=== PATIENT | female | born 1965 | race Caucasian/White ===

== ENCOUNTER 2017-09-29 21:05 | Emergency (ER) | payer MEDICARE, MEDICAID, SELFPAY ==
[2017-09-29 21:08] VITALS: BP 140/98; PULSE 82; RESP 19; TEMP 37.6; O2SAT 98; BMI 28.6
[2017-09-29] MEDS: oxyCODONE 5 MG Tablet 10 MG PO (22:17)
--- NOTE | 2017-09-29 22:20 | ED.VISSUMM ---
- ER Visit Summary Date of Service: 09/29/17 Chief Complaint: Dental pain History of Present Illness: The patient is a 52 F since to the emergency department status post dental extraction today with increasing pain. Patient had this done in [place]. She states that she was just placed on ibuprofen. Since then, she has had gradually increasing pain. She has a dry socket before and states this feels different. She denies any trauma. She denies any active bleeding. Physical Examination: Oral mucosa is intact. There is no Jl angina. There is no trismus or stridor. Patient is status post extraction of tooth 14. There is no active bleeding. There is no dry socket. Test Results: [] Emergency Department Course and Treatment: The patient has postextraction pain. There is no dry socket. There is no active bleeding. The gum is minimally erythematous without evidence of infection. The patient was given oral analgesics and will be discharged with 4 analgesics for pain control at home. She will follow-up with her dentist for any more pain control. Treatment Plan: [] Disposition: Discharge Impression: Post extraction dental pain This note was generated with [employer] dictation software. It may contain incorrect words, spelling, and punctuation that were not noted in review of the chart prior to signing ED Disposition - Plan for ED Patient: Chief Complaint: Dental Instructions: ED Tooth Pain Referrals: [facility],Out of [Primary Care Provider] -
[2017-09-29] MEDS: HYDROcodone Bitartrate/Apap 5/325 Tablet PO (22:32)
[2017-09-29] MEDS: Ondansetron ODT 4 MG Tablet PO (22:33)
[2017-09-29 22:34] VITALS: BP 134/92; PULSE 61; O2SAT 100
== END 2017-09-29 22:34 | disposition home or self-care (01) ==
PROVIDERS: Emergency Provider Emergency Medicine
DX: K08.89 Other specified disorders of teeth and supporting structures (principal); Z98.818 Other dental procedure status; I10 Essential (primary) hypertension; Z72.0 Tobacco use
CPT/HCPCS: 99283

== ENCOUNTER 2017-10-01 13:21 | Emergency (ER) | payer MEDICARE, MEDICAID, SELFPAY ==
[2017-10-01 13:22] VITALS: BP 134/95; PULSE 72; RESP 16; TEMP 36.6; O2SAT 99; BMI 28.5
--- NOTE | 2017-10-01 13:38 | ED.VISSUMM ---
- ER Visit Summary Date of Service: 10/01/17 Chief Complaint: Pain status post dental extraction History of Present Illness: The patient is a 52 F who presents with pain status post extraction of left upper molar this past Wednesday. She was seen that evening and given for [place] tablets. She now presents because of increased pain and facial swelling of the left maxillary area. She denies fever, chills night sweats. She denies being on any immunosuppressive meds. She does have history of lupus. She denies any ocular, visual or auditory symptoms. She denies difficulty opening or closing her mouth. She denies any cardiac respiratory symptoms. Physical Examination: Blood pressure slightly elevated 134/95. There is swelling over the left maxilla. Nares patent without discharge. Pupils equal round reactive. Extra muscles are intact. There is no pain with movement or limited range of motion. There is no trismus. Extraction site is noted with debris. There is some irritation and swelling of the gum with no fluctuance. Trachea is midline. There is no stridor. Heart is regular without murmur, gallop or rub. S1 and S2 are normal. Lungs are clear to auscultation with good movement of air bilaterally. There is no evidence of facial cellulitis. Test Results: None is indicated Emergency Department Course and Treatment: She received a dose of clindamycin 300 mg p.o., Naprosyn 500 mg p.o. and one [place] tablet. She was instructed to follow-up with a dentist. informed me they were at the dentist office. The dentist office is closed and there is been no response to their calls. Treatment Plan: Oral analgesics and antibiotics Disposition: Discharged home with appropriate home-going instruction Impression: Pain status post extraction left upper molar with post extraction infection This note was generated with [employer] dictation software. It may contain incorrect words, spelling, and punctuation that were not noted in review of the chart prior to signing ED Disposition - Plan for ED Patient: Disposition: Home or Assisted Living Chief Complaint: Dental Instructions: ED Abscess Dental, ED Socket Dry Prescriptions: Naproxen [Naprosyn] 500 mg PO BID #10 tab Clindamycin HCl 300 mg PO 4X/DAY #30 cap Referrals: Dentist,Your [STAFF PHYSICIAN] - [facility] Doctor,Out of [Primary Care Provider] - 1-2 Days if not improving
[2017-10-01] MEDS: Clindamycin HCl 150 MG Capsule 300 MG PO (13:51)
[2017-10-01] MEDS: HYDROcodone Bitartrate/Apap 5/325 Tablet PO ×2 (13:52→14:28)
[2017-10-01] MEDS: Naproxen 250 MG Tablet 500 MG PO (13:52)
[2017-10-01 14:30] VITALS: BP 143/108; PULSE 74; RESP 18
== END 2017-10-01 14:34 | disposition home or self-care (01) ==
PROVIDERS: Emergency Provider Emergency Medicine
DX: K08.89 Other specified disorders of teeth and supporting structures (principal); M27.3 Alveolitis of jaws; I10 Essential (primary) hypertension; M32.9 Systemic lupus erythematosus, unspecified; Z72.0 Tobacco use; Z98.818 Other dental procedure status
CPT/HCPCS: 99283

== ENCOUNTER 2017-10-03 18:34 | Emergency (ER) | payer MEDICARE, MEDICAID, SELFPAY ==
[2017-10-03 18:35] VITALS: BP 146/92; PULSE 87; RESP 18; TEMP 37.4; O2SAT 97; BMI 27.8
--- NOTE | 2017-10-03 19:07 | ED.VISSUMM ---
- ER Visit Summary Date of Service: 10/03/17 Chief Complaint: Dental pain History of Present Illness: The patient is a [address] Geronimo. She had her left maxillary first molar pulled [address] Burnham. She reports that she has had pain since that time. She describes a throbbing pain is 10 out of 10 severity. Is worsened by leaning her head forward or swallowing. She taken naproxen and ibuprofen without relief. She has been on clindamycin for the past 2 days. Physical Examination: Vitals: Stable. Afebrile. Mouth: No trismus. No edema of the floor of the mouth. Left maxillary second molar is absent. The extraction site has a clot present. There is no dry socket. There is no surrounding abscess or facial swelling. General: A&O x 3. NAD. Cardiovascular exam: Regular rate and rhythm, no murmur, rub or gallop. Respiratory exam: Clear to auscultation bilaterally. No wheezes or stridor. Abdominal exam: Soft, nontender, nondistended, normal bowel sounds. No peritoneal signs. Extremity: No clubbing, cyanosis, or edema. Emergency Department Course and Treatment: An OARRS report was obtained which shows that she has had no prescriptions for opiates in the past year. Patient is treated with oxycodone here. Treatment Plan: Patient will be discharged oxycodone instructed to follow-up with her dentist as soon as possible. Disposition: To home in improved and stable condition. Impression: 1. Post extraction pain. This note was generated with [employer] dictation software. It may contain incorrect words, spelling, and punctuation that were not noted in review of the chart prior to signing ED Disposition - Plan for ED Patient: Disposition: Home or Assisted Living Chief Complaint: Dental Instructions: ED Tooth Pain Prescriptions: Oxycodone HCl/Acetaminophen [Percocet 5/325] 1 tablet PO Q6H PRN PRN 5 Days #20 tablet PRN Reason: Pain Referrals: Dentist,Your [STAFF PHYSICIAN] - As soon as possible
[2017-10-03] MEDS: oxyCODONE 5 MG Tablet PO (19:22)
[2017-10-03] MEDS: oxyCODONE 5 MG Tablet 10 MG PO (19:22)
[2017-10-03 19:24] VITALS: PULSE 86; RESP 14; O2SAT 98
== END 2017-10-03 19:25 | disposition home or self-care (01) ==
PROVIDERS: Emergency Provider Emergency Medicine
DX: K08.89 Other specified disorders of teeth and supporting structures (principal); G89.18 Other acute postprocedural pain; I10 Essential (primary) hypertension; F17.210 Nicotine dependence, cigarettes, uncomplicated; M79.7 Fibromyalgia; M35.00 Sjogren syndrome, unspecified; M32.9 Systemic lupus erythematosus, unspecified; F41.9 Anxiety disorder, unspecified
CPT/HCPCS: 99283

== ENCOUNTER 2018-01-26 16:43 | Emergency (ER) | payer MEDICARE, MEDICAID, SELFPAY ==
[2018-01-26 16:43] VITALS: BP 168/99; PULSE 75; RESP 16; TEMP 36.8; O2SAT 98; BMI 30.3
--- NOTE | 2018-01-26 17:10 | ED.VISSUMM ---
- ER Visit Summary Date of Service: 01/26/18 Chief Complaint: Anxiety History of Present Illness: The patient is a [address] Bruce. She reports that she has been on Xanax for 30 years. States that her primary physician required a urine drug screen and that she tested positive for cocaine. She is adamant that she did not use cocaine. However, because of this her primary has refused to prescribe her Xanax. She states that she ran out of her Xanax approximately 1 week ago. She reports that she does feel anxious and at times is short of breath with this. Patient complains of generalized anxiety and reports that she has not been able to take SSRIs or other antidepressants to help with this. Review of systems: General: No fever, chills, cold sweats. Cardiovascular: No chest pain, palpitations. Respiratory: No cough, shortness of breath, dyspnea on exertion. Gastrointestinal: No abdominal pain, vomiting, diarrhea, melena, or hematochezia. Genitourinary: No dysuria, frequency, hematuria. Skin: No rash. Neuro: No headache, numbness, weakness. Physical Examination: Vitals: Stable. Afebrile. General: Well-nourished and well-developed. Head: Normocephalic atraumatic. Neck: Supple, no lymphadenopathy. No JVD. Nontender. Cardiovascular: Regular rate and rhythm. No murmurs. Respiratory: No respiratory distress. Clear to auscultation bilaterally. Abdominal: Soft, nontender, nondistended, normal bowel sounds. No guarding, rebound, or peritoneal signs. Back: Nontender. Extremities: Nontender, no edema. Skin: Normal color, no rash. Neurologic: Alert and oriented ?3. Cranial nerves II through XII are intact. Normal strength and sensation. Psych: Normal affect. Emergency Department Course and Treatment: An OARRS report was obtained which shows she has been on Xanax over the course the past year. Her last prescription was November 04 and this was to last 1 month. I did attempt to find what would cause a false positive for cocaine and have not found anything other than coca leaves. Treatment Plan: I discussed the patient the possibility of a false positive drug screen. I have suggested that she follow-up with her primary care physician and speak with her about this and about further prescriptions for benzodiazepines. However, she does not appear on her OARS report to have had an issue with benzodiazepines in the past and will be given a prescription for 20 Ativan. Return to the emergency department for any worsening symptoms. Disposition: To home in improved and stable condition. Impression: 1. Anxiety. This note was generated with [employer] dictation software. It may contain incorrect words, spelling, and punctuation that were not noted in review of the chart prior to signing ED Disposition - Plan for ED Patient: Disposition: Home or Assisted Living Chief Complaint: Anxiety Instructions: ED Stress React Prescriptions: Lorazepam [Ativan] 1 mg PO TID PRN #20 tablet PRN Reason: Anxiety Referrals: Doctor,Your [STAFF PHYSICIAN] - As soon as possible
[2018-01-26 17:30] VITALS: PULSE 78; RESP 17; O2SAT 98
[2018-01-26] MEDS: LORazepam 1 MG Tablet PO (17:32)
== END 2018-01-26 17:33 | disposition home or self-care (01) ==
LOC: ED 17:16
PROVIDERS: Emergency Provider Emergency Medicine
DX: F41.9 Anxiety disorder, unspecified (principal); I10 Essential (primary) hypertension; K21.9 Gastro-esophageal reflux disease without esophagitis; M79.7 Fibromyalgia; M35.00 Sjogren syndrome, unspecified; F17.200 Nicotine dependence, unspecified, uncomplicated
CPT/HCPCS: 99283

== ENCOUNTER 2018-03-06 19:56 | Emergency (ER) | payer MEDICARE, MEDICAID, SELFPAY ==
[2018-03-06 19:58] VITALS: BP 139/89; PULSE 83; RESP 18; TEMP 36.6; O2SAT 98; BMI 29.2
[2018-03-06] MEDS: Metoclopramide 10 MG/2 ML Vial IV (21:42)
[2018-03-06] MEDS: 0.9% Normal Saline 1,000 ML 999 ML IV (21:42)
[2018-03-06] MEDS: Ketorolac 30 MG/ML Syringe IV (21:44)
--- NOTE | 2018-03-06 22:17 | ED.VISSUMM ---
- ER Visit Summary Date of Service: 03/06/18 Chief Complaint: Headache History of Present Illness: The patient is a 53 F who presents with a headache. It began about 3 days ago. It was gradual in onset. She does have a history of migraines and similar prior headaches. She notes that the characteristics and locations of the pain are similar to prior. She also had a prodrome of flashing lights and visual changes which she also states she usually got before her migraines. This is not the worst migraine she has had. She does note a lot of stress and anxiety which she believes may be contributing. Physical Examination: Afebrile vitals are normal Patient appears very anxious Heart regular rate and rhythm Lungs clear Abdomen soft Alert and oriented with no focal or lateralizing neurological deficits Neck is supple with no meningismus Test Results: Not indicated Emergency Department Course and Treatment: Patient was treated with IV fluids and Reglan and Toradol. When I went to reevaluate the patient she had pulled out her IV and is asking to leave. She does note that her nausea is improved and states I am not sure about the headache. However she states that at this point she would just prefer to be discharged home. She does understand return for new or worsening symptoms. She was discharged. Treatment Plan: [] Disposition: Discharge Impression: Headache This note was generated with [employer] dictation software. It may contain incorrect words, spelling, and punctuation that were not noted in review of the chart prior to signing ED Disposition - Plan for ED Patient: Chief Complaint: Headache Referrals: [facility] Doctor,Out of [Primary Care Provider] -
--- NOTE | 2018-03-06 22:19 | ED.DEP ---
ED Disposition - Plan for ED Patient: Chief Complaint: Headache Instructions: ED Cephalgia Unspecified Referrals: [facility],Out of [Primary Care Provider] -
== END 2018-03-06 22:48 | disposition home or self-care (01) ==
PROVIDERS: Emergency Provider Emergency Medicine
DX: R51 Headache (principal); R11.0 Nausea; I10 Essential (primary) hypertension; M79.7 Fibromyalgia; Z72.0 Tobacco use
CPT/HCPCS: 96361; 96374; 96375; 99285; A4216

== ENCOUNTER 2019-08-13 11:15 | Emergency (ER) | payer OTHER, SELFPAY ==
[2019-08-13 11:17] VITALS: BP 178/112; PULSE 72; RESP 19; TEMP 36.7; O2SAT 97; BMI 32.3
--- NOTE | 2019-08-13 11:30 | ED.VIS.GEN ---
History of Present Illness Informant: Patient, Significant Other Onset: Days - 3 days Context: Sudden Onset Timing: Intermittent Quality: Room spinning Location: Head Current Severity: Severe Maximum Severity: Severe Worsened by: Movements Relieved by: Rest Associated Symptoms: Nausea and vomiting Narrative: 54-year-old female history of hypertension lupus and fibromyalgia presents to the emergency department with 3 days of dizziness. She describes it as feeling motion sickness. She has a room spinning sensation. It is worse when she gets up from a laying or seated position and standing. Better with rest especially being supine. She has associated nausea and vomiting with these episodes. She has not had a headache or tinnitus. No neck pain. No blurry or double vision. No loss of vision. No numbness tingling or weakness. No chest pain or shortness of breath. No fevers. No head trauma. She is not anticoagulated. Denies history of vertigo. Only current daily medication is metoprolol Prior similar symptoms: No Recent Illness/Hospitalization: No <Crow Palafox - Last Filed: 08/13/19 13:21> <Eddie Alanis - Last Filed: 08/13/19 13:32> Chief Complaint: Dizziness Past Medical History Prior records reviewed: Yes Past Medical History: - - Lupus, fibromyalgia, hypertension Surgical History: - - Hysterectomy, back surgery Lives: With Family Smoking Status: Current every day smoker Alcohol: Occasional Drugs: None <Crow Palafox - Last Filed: 08/13/19 13:21> <Eddie Alanis - Last Filed: 08/13/19 13:32> - Allergies and Home Meds Allergies/Adverse Reactions: Allergies hydrocodone bitartrate [From Vicodin] Allergy (Verified 08/13/19 11:17) Rash nortriptyline HCl [From Pamelor] Allergy (Verified 08/13/19 11:17) Rash gabapentin Adverse Reaction (Verified 08/13/19 11:17) Other prednisone Adverse Reaction (Verified 08/13/19 11:17) Other pregabalin [From Lyrica] Adverse Reaction (Verified 08/13/19 11:17) Other zolpidem tartrate [From Ambien] Adverse Reaction (Verified 08/13/19 11:17) Other Primary Care Physician: [facility] Doctor,Out of [NON-STAFF] - Review of Systems All systems negative except as indicated General: Denies: Chills, Fever, Malaise, Subjective Eyes: Denies: Visual changes - bilaterally, Blurred Vision - bilaterally, Diplopia ENT: Denies: Bilateral ear pain, Left ear pain, Right ear pain, Rhinorrhea, Sore throat Cardiovascular: Denies: Chest pain, Palpitations, Heart racing Respiratory: Denies: Dyspnea, Cough, Sputum, Dyspnea on exertion, Orthopnea, Paroxysmal nocturnal dyspnea Gastrointestinal: Reports: Nausea, Vomiting. Denies: Abdominal pain, Diarrhea, Constipation, Melena, Hematochezia Genitourinary: Denies: Dysuria, Hematuria, Frequency Musculoskeletal: Denies: Myalgias, Arthralgias, Neck pain, Back pain, Extremity Pain Skin: Denies: Rash, Abscess, Abrasions, Wounds Neurological: Reports: - - Dizziness. Denies: Headache, Weakness, Parasthesia, Numbness Psych: Denies: Depression, Anxiety Endocrine: Denies: Polyuria, Polydipsia <Crow Palafox - Last Filed: 08/13/19 13:21> Physical Exam Vital Signs/Narrative: Vital Signs Temp Pulse Resp BP Pulse Ox 08/13/19 11:17 98.1 F 72 19 H 178/112 H 97 Inital Vital Signs reviewed: Yes General: Well nourished, Well developed, No Acute Distress Head: Normocephalic, Atraumatic Eyes: Perrl, EOMI ENT: Moist mucous membranes, No rhinorrhea, TM's clear Neck: Supple, Nontender, No lymphadenopathy, No JVD Cardiovascular: Regular rate, Regular rhythm, No murmurs Respiratory: No distress, CTA bilaterally, Chest nontender Abdomen: Soft, Nontender, Nondistended, Normal bowel sounds, No masses Back: Nontender, Normal Inspection Extremities: Nontender, No edema Skin: Normal color, No rash Neurological: Alert, Oriented x3, Cranial nerves II-XII grossly intact, Normal Strength, Normal Sensation Psychological: Normal affect, Normal Mood <Crow Palafox - Last Filed: 08/13/19 13:21> Vital Signs/Narrative: Vital Signs Temp Pulse Resp BP Pulse Ox 08/13/19 13:16 71 18 188/106 H 98 08/13/19 11:17 98.1 F 72 19 H 178/112 H 97 <AlanisEddie - Last Filed: 08/13/19 13:32> Diagnostic/Tx/Re-eval - Medical Decision Making Patient was given IV fluids and IV ativan Laboratory work-up showed a white blood cell count of 14. Sodium was 126. The rest of her labs are unremarkable. On repeat evaluation Cecilia maneuver was performed by Dr. Alanis. Noted improvement of symptoms. Patient ambulated normally without difficulty. We will discharge the patient home with a few Valium. She will follow-up with her primary care. At this time we do feel this is benign paroxysmal positional vertigo. Repeat neurological exam was unremarkable. Patient was agreeable with plan of care. She was advised to return for worsening symptoms. <Crow Palafox - Last Filed: 08/13/19 13:21> - Medical Decision Making Patient presents with motion sickness with movement of her head. She denies double vision, blurred vision loss of vision. She does report nausea. She denies paresthesia, anesthesia motors. Denies trouble with speech or swallowing. She denies cardiac respiratory symptoms. There is no history of trauma. Vital signs noted blood pressure is elevated. HEENT exam is unremarkable. Trachea midline. No carotid bruit. Heart is regular. There is no murmur, gallop or rub. Neuro exam is nonfocal. [place]-Hallpike maneuver was performed and patient reports symptoms worse with head to the left. There was slight nystagmus with her head to the right, however. Cceilia maneuver was performed. Patient had transient nystagmus when head was to the right. After procedure was completed patient was reevaluated and ambulated with resolution of her symptoms. Therefore she was discharged home with appropriate home-going instructions for benign paroxysmal positional vertigo. <Eddie Alanis - Last Filed: 08/13/19 13:32> ED Disposition <Crow Palafox - Last Filed: 08/13/19 13:21> <Eddie Alanis - Last Filed: 08/13/19 13:32> - Plan for ED Patient: Disposition: Home or Assisted Living Diagnosis: BPPV (benign paroxysmal positional vertigo) Instructions: Benign Positional Vertigo Prescriptions: proMETHazine tablet [Phenergan tablet] 25 mg PO Q6H PRN PRN #15 tab PRN Reason: nausea Prescription Printed Diazepam [Valium] 5 mg PO TID PRN #12 tab PRN Reason: Dizziness Prescription Printed Referrals: [facility] Doctor,Out of [NON-STAFF] -
[2019-08-13 12:04] LABS: Absolute Lymphocyte Count 2.49 X10^3/uL (0.83-4.51); Absolute Neutrophil Count 11.4 X10^3/uL (2.0-7.7); Basophil# 0.05 X10^3/uL; Basophil% 0.3 % (0-1); Eosinophil# 0.06 X10^3/uL; Eosinophils% 0.4 % (0-5); Hematocrit 43.2 % (37-47); Hemoglobin 15.2 g/dL (12.0-15.0); Lymphocyte # 2.49 X10^3/ul (4.0); Lymphocyte % 16.4 % (19-41); Mean Corp Hgb Conc 35.2 g/dL (32-36); Mean Corpuscular Hgb 30.8 pg (27.0-32.0); Mean Corpuscular Volume 87.6 fL (81-99); Mean Platelet Vol. 10.5 fl (6.2-12.0); Monocyte# 1.19 X10^3/uL; Monocyte% 7.8 % (0-10); NRBC Flagged by Analyzer 0 % (0-5); Neutrophil # 11.35 X10^3/uL (2.7-7.7); Neutrophil % 74.6 % (47-70); Platelet Count 338 K/mm3 (150-450); RBC Distribution Width CV 12.3 % (11.6-14.6); RBC Distribution Width SD 39.8 fl (35.1-43.9); Red Blood Count 4.93 M/mm3 (4.2-5.4); White Blood Count 15.2 K/mm3 (4.4-11.0)
[2019-08-13 12:50] LABS: Anion Gap 9 (5-15); BUN 9 mg/dL (7-18); BUN/Creat Ratio 11.7 RATIO (10-20); Chloride 93 mmol/L (98-107); Creatinine, Serum 0.77 mg/dL (0.55-1.02); EST Glomerular Filtration Rate 83 mL/min (>60); Est Glom Filt Rate - Afr Amer 101 mL/min (>60); Estimated Creatinine Clearance 65.29 ml/min; Glucose 110 mg/dL (74-106); Potassium 3.5 mmol/L (3.5-5.1); Sodium Level 126 mmol/L (136-145)
[2019-08-13] MEDS: 0.9% Normal Saline 1,000 ML 999 ML IV (12:57)
[2019-08-13] MEDS: LORazepam 2 MG/ML Syringe 1 MG IV (12:57)
[2019-08-13 13:16] VITALS: BP 188/106; PULSE 71; RESP 18; O2SAT 98
== END 2019-08-13 13:48 | disposition home or self-care (01) ==
PROVIDERS: Emergency Provider Physician Assistant Medical
DX: H81.10 Benign paroxysmal vertigo, unspecified ear (principal); I10 Essential (primary) hypertension; F17.200 Nicotine dependence, unspecified, uncomplicated; M32.9 Systemic lupus erythematosus, unspecified; Z88.5 Allergy status to narcotic agent; Z88.8 Allergy status to other drugs, medicaments and biological substances
CPT/HCPCS: 80048; 85025; 96361; 96374; 99285; J7030; A4216

== ENCOUNTER 2019-08-31 16:01 | Emergency (ER) | payer OTHER, SELFPAY ==
[2019-08-31 16:03] VITALS: BP 199/112; PULSE 80; RESP 20; TEMP 37; O2SAT 95; BMI 30.6
--- NOTE | 2019-08-31 16:21 | ED.VISSUMM ---
- ER Visit Summary Date of Service: 08/31/19 Chief Complaint: Back pain History of Present Illness: The patient is a 54 F with back pain. She has chronic back pain. This episode started about 3 weeks ago. She is taking [id number] remedies with no relief. Nothing seemed to bring on. Nothing seems to make it better. No associated symptoms. She was previously on pain medicine, but she says her PCPs office closed. She is looking for new PCP and pain doctor. Physical Examination: Afebrile and vital signs unremarkable. Back is diffusely tender. Inspection is normal. Straight leg raise negative. Good strength and sensation. Steady gait. Test Results: None indicated Emergency Department Course and Treatment: Patient received a pain shot and a shot of steroids as this has helped in the past. She will be referred to primary care and pain management for follow-up. She was advised that we cannot treat her chronic pain from the ED. Treatment Plan: As above Disposition: Discharge Impression: Chronic back pain This note was generated with [employer] dictation software. It may contain incorrect words, spelling, and punctuation that were not noted in review of the chart prior to signing ED Disposition - Plan for ED Patient: Referrals: Care Physician,No Primary [Primary Care Provider] -
--- NOTE | 2019-08-31 16:23 | ED.DEP ---
ED Disposition - Plan for ED Patient: Instructions: ED Chronic Pain Prescriptions: Oxycodone HCl/Acetaminophen [Percocet 5/325] 1 tab PO Q6H PRN PRN 2 Days #8 tab PRN Reason: Pain Prescription Printed Referrals: Esmer Riley MD [STAFF PHYSICIAN] - Sacha Evans MD [STAFF PHYSICIAN] -
[2019-08-31] MEDS: Triamcinolone Acetonide 40 MG/ML Vial IM (16:29)
[2019-08-31] MEDS: morphine 10 MG/ML Syringe 4 MG SC (16:36)
[2019-08-31 16:59] VITALS: BP 154/102; PULSE 68; RESP 16; O2SAT 98
== END 2019-08-31 17:00 | disposition home or self-care (01) ==
PROVIDERS: Emergency Provider Emergency Medicine
DX: M54.9 Dorsalgia, unspecified (principal); G89.29 Other chronic pain
CPT/HCPCS: 96372; 99283

== ENCOUNTER 2020-12-13 15:07 | Emergency (ER) | payer MEDICARE, SELFPAY ==
[2020-12-13 15:08] VITALS: BP 175/11; PULSE 89; RESP 16; TEMP 35.5; O2SAT 95; BMI 32.5
[2020-12-13] MEDS: Fluorescein 1 MG STRIP 1 STRIP LEFT EYE (16:15)
[2020-12-13 16:59] VITALS: PULSE 92; RESP 15; O2SAT 97
--- NOTE | 2020-12-13 17:03 | EX.ED.DYSGE1 ---
HPI History of Present Illness Chief Complaint: Rash Informant: patient Narrative Narrative: Presents with rash to the left forehead and scalp painful. States neuro tingling 3 to 4 days ago yesterday noticed small rash on her face. Has increased since yesterday. No history of shingles however has had chickenpox in the past. Denies any changes in vision the left eye. However wears bifocals last eye exam 4 years ago. States right eye worsening left eye at baseline. She states her left eye is 20/40 at its best. Denies fever. History of lupus however does not take steroids or immunosuppressants chronically. Prior similar symptoms: No PFSH PFSH Medical History Agoraphobia Fibromyalgia Fusion of lumbar spine Hypertension Lupus Smoker Home Medications metoprolol tartrate 50 mg PO BID 09/30/15 [History Last Taken 08/31/19] erythromycin 1 applic LEFT EYE BID #3.5 g 12/13/20 [Rx Last Taken Unknown] oxycodone-acetaminophen [Percocet] 1 tab PO Q6H PRN 3 Days #12 tab 12/13/20 [Rx Last Taken Unknown] valacyclovir [Valtrex] 1,000 mg PO TID #42 tab 12/13/20 [Rx Last Taken Unknown] Allergy/AdvReac Type Severity Reaction Status Date / Time hydrocodone bitartrate Allergy Rash Verified 12/13/20 15:08 [From Vicodin] nortriptyline HCl Allergy Rash Verified 12/13/20 15:08 [From Pamelor] gabapentin AdvReac Other Verified 12/13/20 15:08 prednisone AdvReac Other Verified 12/13/20 15:08 pregabalin [From Lyrica] AdvReac Other Verified 12/13/20 15:08 zolpidem tartrate AdvReac Other Verified 12/13/20 15:08 [From Ambien] Social History Smoking Status: Current every day smoker tobacco type: cigarettes ROS ROS ED Constitutional Constitutional ED: Denies chills, fever(s) or sweats Eyes Eyes: Denies change in vision ENT ENT ED: Denies dysphagia or sore throat Cardiovascular Cardiovascular: Denies chest pain, leg edema, palpitations or racing heartbeat Respiratory/Chest Respiratory/Chest: Denies cough, dyspnea or dyspnea on exertion Gastrointestinal Gastrointestinal: Denies abdominal pain, diarrhea, nausea or vomiting Genitourinary Genitourinary ED: Denies dysuria, hematuria or urinary frequency Musculoskeletal Musculoskeletal: Denies back pain, extremity pain or neck pain Integumentary Reports rash; Denies wounds Neurologic Neurologic: Denies headache(s), paresthesias or weakness EXAM Physical Exam Const Vital Signs: 12/13/20 15:08 12/13/20 16:59 Temperature 96 F L Temperature Source Temporal Pulse Rate 89 92 Respiratory Rate 16 15 Blood Pressure 175/11 H Blood Pressure Mean 65 Pulse Ox 95 97 Oxygen Delivery Method Room Air Room Air Positive well nourished and well developed General Appearance ED: well developed and NAD HEENT Reports moist mucous membranes HEENT Narrative: Vesicular rash and erythema V1 distribution on the left with positive [place] sign. normocephalic and atraumatic Eyes conjunctivae normal Eyes Narrative: Swelling to the upper eyelid. There is vesicular lesion at the 4:00 and 9 o'clock position. No dendritic lesion on fluorescein stain. Visual acuity OD: 20/200, 20/50 OS. Uncorrected. General Eye ED: Yes normal appearance of both eyes Neck no lymphadenopathy and supple General: Negative for tenderness Chest Wall Chest: Negative for tenderness Resp normal respiratory effort and normal air movement Effort and Inspection: symmetric chest movement; Negative for respiratory distress Cardio regular rate, regular rhythm and no murmurs Peripheral Pulses: pulses 2+ throughout GI normal to inspection, nondistended, normoactive bowel sounds and non-tender Palpation: Negative for guarding or rebound tenderness present Back/Spine no CVA tenderness and no thoracic nor lumbar tenderness Extremity normal to inspection General Extremety ED: Negative for edema or tenderness General Extremity: Negative for edema Neuro oriented x3 and no sensory deficits noted Sensorium / Orientation: awake and alert Skin no rashes or lesions noted and no wounds MDM MDM MDM Narrative Medical decision making narrative: Patient presenting with herpes ophthalmicus affecting left eye. There is vesicles of the sclera with conjunctivitis. Visual acuity 20/50 uncorrected in the left eye. Not far from her baseline from her history. I did speak with on-call exchange administrator, recommended starting 1 g Valtrex 3 times a day for 2 weeks, erythromycin twice daily to the left eye. Took down patient's information he reports he will discuss with his covering partner who is on-call this weekend and patient will be contacted to be seen in the office either rodrigo or geriorrow for examination prior to steroids being started. This was relayed to the patient. She is order her medications along with Percocet for pain control. Discussed to expect a call from ophthalmology clinic. All questions were answered. Discharge Plan Triage Chief Complaint: Rash ED Provider: Carlos Mendoza Dx/Rx/DC Orders Clinical Impression: Ophthalmic herpes zoster infection Instructions: Shingles (Herpes Zoster), Understanding Herpes Eye Disease Prescriptions: New valacyclovir [Valtrex] 1 gram tablet 1,000 mg PO TID Qty: 42 RF: 0 erythromycin 5 mg/gram (0.5 %) ointment 1 applic LEFT EYE BID Qty: 3.5 RF: 0 oxycodone-acetaminophen [Percocet] 5-325 mg tablet 1 tab PO Q6H PRN (Reason: pain) 3 Days Qty: 12 RF: 0 No Action metoprolol tartrate 50 MG tablet 50 mg PO BID RF: 0 Primary Care Provider: Care Physician,No Primary Referrals: Bang Vasquez MD [STAFF PHYSICIAN] - (expect call from eye center for follow up) Care Physician,No Primary [Primary Care Provider] - Activity Restrictions/Additional Instructions: Your prescriptions were sent to your pharmacy to take. Expect a call from the eye center to get seen for testing and further treatment. Disposition Disposition: Home, Self Care
[2020-12-13] MEDS: oxyCODONE 5 MG Tablet PO (17:11)
[2020-12-13] MEDS: Erythromycin Base 1 OPTH.TUBE 1 APPLIC LEFT EYE (17:11)
[2020-12-13 17:18] VITALS: BP 165/74; PULSE 97; RESP 15; O2SAT 98
== END 2020-12-13 17:19 | disposition home or self-care (01) ==
PROVIDERS: Emergency Provider Emergency Medicine
DX: B02.30 Zoster ocular disease, unspecified (principal); I10 Essential (primary) hypertension; M32.9 Systemic lupus erythematosus, unspecified; M79.7 Fibromyalgia; F17.210 Nicotine dependence, cigarettes, uncomplicated; Z79.52 Long term (current) use of systemic steroids; Z79.899 Other long term (current) drug therapy
CPT/HCPCS: 99283

== ENCOUNTER 2021-01-21 15:04 | Emergency (ER) | payer MEDICARE, SELFPAY ==
[2021-01-21 15:05] VITALS: BP 121/92; PULSE 81; RESP 16; TEMP 36.4; O2SAT 98; BMI 31.1
== END 2021-01-21 15:41 ==
LOC: ED 15:40
DX: R21 Rash and other nonspecific skin eruption (principal)

== ENCOUNTER 2022-09-06 19:15 | Emergency (ER) | payer MEDICARE, MEDICAID, SELFPAY ==
[2022-09-06 19:16] VITALS: BP 204/143; PULSE 108; RESP 15; TEMP 37.2; O2SAT 96
--- NOTE | 2022-09-06 19:41 | EDS_ITS ---
HPI History of Present Illness Chief Complaint: Substance Abuse Informant: patient [facility] Medical History Agoraphobia Fibromyalgia Fusion of lumbar spine Hypertension Lupus Smoker Home Medications metoprolol tartrate 50 mg tablet 50 mg PO BID 09/30/15 [History Last Taken 08/31/19] erythromycin 5 mg/gram (0.5 %) eye ointment 1 applic LEFT EYE BID #3.5 grams 12/13/20 [Rx Last Taken Unknown] oxycodone-acetaminophen 5 mg-325 mg tablet (Percocet) 1 tab PO Q6H PRN pain 3 days #12 tabs 12/13/20 [Rx Last Taken Unknown] valacyclovir 1 gram tablet (Valtrex) 1,000 mg PO TID #42 tabs 12/13/20 [Rx Last Taken Unknown] Allergy/AdvReac Type Severity Reaction Status Date / Time hydrocodone bitartrate Allergy Rash Verified 09/06/22 19:20 [From Vicodin] nortriptyline HCl Allergy Rash Verified 09/06/22 19:20 [From Pamelor] gabapentin AdvReac Other Verified 09/06/22 19:20 prednisone AdvReac Other Verified 09/06/22 19:20 pregabalin [From Lyrica] AdvReac Other Verified 09/06/22 19:20 zolpidem tartrate AdvReac Other Verified 09/06/22 19:20 [From Ambien] Social History Smoking Status: Current every day smoker tobacco type: cigarettes ROS ROS ED Cardiovascular Cardiovascular: Reports racing heartbeat Psychiatric Psychiatric: Reports anxiety EXAM Physical Exam Const Vital Signs: 09/06/22 19:16 09/06/22 19:53 09/06/22 19:55 Temperature 99.0 F Temperature Source Temporal Pulse Rate 108 H 102 H Respiratory Rate 15 16 Respiratory Effort Normal Non-Labored Blood Pressure 204/143 H 211/109 H Blood Pressure Mean 163 143 Pulse Ox 96 96 Oxygen Delivery Method Room Air HEENT Reports moist mucous membranes Eyes PERRL and EOMs intact bilaterally Neck supple Resp normal respiratory effort Auscultation: diminished lung sounds bilateral (posterior bases) Cardio regular rate, regular rhythm, S1 normal heart sound, S2 normal heart sound and no murmurs Rate: tachycardic GI soft to palpation, non-tender, non-distended and no masses Neuro oriented x3 and CN's II-XII intact bilaterally Neuro Narrative: 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 Gait (Neuro): normal gait Psych mental status grossly normal Mood & Affect: anxious Discharge Plan Triage Chief Complaint: Substance Abuse ED Provider: Alex Lewis Dx/Rx/DC Orders Prescriptions: No Action metoprolol tartrate 50 MG tablet 50 mg PO BID valacyclovir [Valtrex] 1 gram tablet 1,000 mg PO TID Qty: 42 0RF erythromycin 5 mg/gram (0.5 %) ointment 1 applic LEFT EYE BID Qty: 3.5 0RF oxycodone-acetaminophen [Percocet] 5-325 mg tablet 1 tab PO Q6H PRN (Reason: pain) 3 Days Qty: 12 0RF Primary Care Provider: Care Physician,No Primary Referrals: Care Physician,No Primary [Primary Care Provider] -
[2022-09-06 19:55] VITALS: BP 211/109; PULSE 102; RESP 16; O2SAT 96
--- NOTE | 2022-09-06 20:06 | EDS_ITS ---
HPI History of Present Illness Chief Complaint: Substance Abuse Informant: patient Narrative Narrative: Patient presents with anxiety, nausea, diarrhea, couple episodes of vomiting but mostly when she gagged herself, and elevated blood pressure since she stopped u sing fentanyl 4 days ago. She has been snorting it. Denies any IV drug use. She has been abusing this for the last year or so to help control her pain that she associates with her fibromyalgia. She states she is not doing this for fun and when she stopped using fentanyl which she did 4 days ago, she plans on not using it again, although she does not have a plan for controlling her fibromyalgia pain. She states she is very anxious, she has a history of this, it is worse now that she is in withdrawal. She does not want to be an inpatient, she is just looking for some medications to help her through this and the anxiety and sleep because she cannot do that. PFSH PFSH Medical History Agoraphobia Fibromyalgia Fusion of lumbar spine Hypertension Lupus Smoker Home Medications metoprolol tartrate 50 mg tablet 50 mg PO BID 09/30/15 [History Last Taken 08/31/19] erythromycin 5 mg/gram (0.5 %) eye ointment 1 applic LEFT EYE BID #3.5 grams 12/13/20 [Rx Last Taken Unknown] oxycodone-acetaminophen 5 mg-325 mg tablet (Percocet) 1 tab PO Q6H PRN pain 3 days #12 tabs 12/13/20 [Rx Last Taken Unknown] valacyclovir 1 gram tablet (Valtrex) 1,000 mg PO TID #42 tabs 12/13/20 [Rx Last Taken Unknown] clonidine HCl 0.1 mg tablet 0.1 mg PO TID #10 tabs 09/06/22 [Rx Last Taken Unk nown] promethazine 25 mg tablet 25 mg PO Q6H PRN PRN Nausea #16 TABLETS 09/06/22 [Rx Last Taken Unknown] tramadol 50 mg tablet 50 mg PO Q4H PRN PRN Pain 3 days #16 tabs 09/06/22 [Rx Last Taken Unknown] Allergy/AdvReac Type Severity Reaction Status Date / Time hydrocodone bitartrate Allergy Rash Verified 09/06/22 19:20 [From Vicodin] nortriptyline HCl Allergy Rash Verified 09/06/22 19:20 [From Pamelor] gabapentin AdvReac Other Verified 09/06/22 19:20 prednisone AdvReac Other Verified 09/06/22 19:20 pregabalin [From Lyrica] AdvReac Other Verified 09/06/22 19:20 zolpidem tartrate AdvReac Other Verified 09/06/22 19:20 [From Ambien] Social History Smoking Status: Current every day smoker tobacco type: cigarettes ROS ROS ED Constitutional Constitutional ED: Denies chills or fever(s) Eyes Eyes: Denies change in vision or diplopia ENT ENT ED: Denies rhinorrhea or sore throat Cardiovascular Cardiovascular: Denies chest pain or palpitations Respiratory/Chest Respiratory/Chest: Denies cough or dyspnea Gastrointestinal Gastrointestinal: Reports diarrhea, nausea and vomiting; Denies abdominal pain Genitourinary Genitourinary ED: Denies dysuria or hematuria Musculoskeletal Musculoskeletal: Denies back pain or neck pain Integumentary Denies abscess or rash Neurologic Neurologic: Denies headache(s), paresthesias or weakness Psychiatric Psychiatric: Reports anxiety; Denies suicidal thoughts EXAM Physical Exam Const Vital Signs: 09/06/22 19:16 09/06/22 19:53 09/06/22 19:55 Temperature 99.0 F Temperature Source Temporal Pulse Rate 108 H 102 H Respiratory Rate 15 16 Respiratory Effort Normal Non-Labored Blood Pressure 204/143 H 211/109 H Blood Pressure Mean 163 143 Pulse Ox 96 96 Oxygen Delivery Method Room Air Positive well nourished and well developed General Appearance ED: well developed and NAD HEENT Reports moist mucous membranes normocephalic and atraumatic Eyes PERRL and EOMs intact bilaterally Neck full ROM and supple Resp normal respiratory effort and clear to auscultation bilaterally Cardio regular rate, regular rhythm and no murmurs Rate: tachycardic GI non-tender and non-distended Auscultation: normoactive bowel sounds Palpation: soft Back/Spine no CVA tenderness General Back: other FROM Extremity normal to inspection General Extremety ED: Negative for edema, pulses abnormal or tenderness General Extremity: Negative for edema or pulses abnormal Neuro oriented x3, CN's II-XII intact bilaterally and no sensory deficits noted Sensorium / Orientation: awake and alert Motor Exam: strength 5/5 throughout Psych thought process normal Psych Narrative: Anxious and fidgety Skin no rashes or lesions noted and no wounds MDM MDM MDM Narrative Medical decision making narrative: Patient is hypertensive, on a couple different rechecks she is in the 180s, not the 200s anymore like she was in triage. I do not think she is necessarily symptomatic from the blood pressure, I think this is a side effect of her withdrawal. I offered inpatient detox she does not want that and states she will be more comfortable at home. I offered a short course of Suboxone, she does not want that and she does not want to follow-up with anybody as an outpatient either. She prefers to have a prescription to use at home. I offered her IV fluids here because she has been having trouble keeping fluids down the last day or 2, she declines that as well. I think it would be reasonable to give her tramadol and clonidine along with some Zofran here, as well as a prescription for 2 or 3 days, she is thankful for that and will return if this does not work and she needs inpatient. She is not suicidal or having any other acute psychiatric disturbance. With regards to Benadryl she was taking this at home, she took 100 mg once yesterday and once today. She does not appear to have an anticholinergic toxidrome. Discharge Plan Triage Chief Complaint: Substance Abuse ED Provider: Alex Lewis Dx/Rx/DC Orders Clinical Impression: Opiate withdrawal, Opiate dependence, Episode of hypertension Instructions: ED Opioid Withdrawal Prescriptions: New tramadol 50 mg tablet 50 mg PO Q4H PRN PRN (Reason: Pain) 3 Days Qty: 16 0RF clonidine HCl 0.1 mg tablet 0.1 mg PO TID Qty: 10 0RF promethazine [promethazine] 25 mg tablet 25 mg PO Q6H PRN PRN (Reason: Nausea) Qty: 16 0RF No Action metoprolol tartrate 50 MG tablet 50 mg PO BID valacyclovir [Valtrex] 1 gram tablet 1,000 mg PO TID Qty: 42 0RF erythromycin 5 mg/gram (0.5 %) ointment 1 applic LEFT EYE BID Qty: 3.5 0RF oxycodone-acetaminophen [Percocet] 5-325 mg tablet 1 tab PO Q6H PRN (Reason: pain) 3 Days Qty: 12 0RF Primary Care Provider: Care Physician,No Primary Referrals: Care Physician,No Primary [Primary Care Provider] - [facility] [Non-Staff] - As Needed Disposition Disposition: Home, Self Care
[2022-09-06 20:15] VITALS: BMI 32.4
[2022-09-06] MEDS: Ondansetron ODT 4 MG Tablet 8 MG PO (20:16)
[2022-09-06] MEDS: cloNIDine HCl 0.2 MG Tablet PO (20:16)
[2022-09-06] MEDS: traMADol 50 MG Tablet 100 MG PO (20:16)
[2022-09-06] MEDS: hydrOXYzine PAM 25 MG Capsule 50 MG PO (20:54)
== END 2022-09-06 20:55 | disposition home or self-care (01) ==
PROVIDERS: Emergency Provider Emergency Medicine; Visit Provider Emergency Medicine
DX: F11.23 Opioid dependence with withdrawal (principal); I10 Essential (primary) hypertension; M79.7 Fibromyalgia; R11.2 Nausea with vomiting, unspecified; R19.7 Diarrhea, unspecified; F17.210 Nicotine dependence, cigarettes, uncomplicated; F41.9 Anxiety disorder, unspecified
CPT/HCPCS: 99283

== ENCOUNTER 2022-09-08 15:00 | Inpatient (IN) | payer MEDICARE, SELFPAY ==
[2022-09-08 15:02] VITALS: BP 162/98; PULSE 106; RESP 22; TEMP 36.8; O2SAT 98; BMI 31.1
[2022-09-08 17:03] VITALS: BP 110/72; PULSE 88; RESP 17
[2022-09-08 17:37] LABS: Bacteria 0 SEEN /hpf (None Seen); Mucous, Urine 0 SEEN /hpf (<or=2+); Red Blood Cells-Urine 0 SEEN /hpf (0-5)
[2022-09-08 17:56] LABS: Absolute Lymphocyte Count 2.16 X10^3/uL (0.83-4.51); Absolute Neutrophil Count 7.8 X10^3/uL (2.0-7.7); Basophil# 0.07 X10^3/uL; Basophil% 0.6 % (0-1); Eosinophil# 0.12 X10^3/uL; Eosinophils% 1.1 % (0-5); Hematocrit 49.1 % (37-47); Hemoglobin 16.4 g/dL (12.0-15.0); Lymphocyte # 2.16 X10^3/ul (0.83-4.51); Lymphocyte % 19.8 % (19-41); Mean Corp Hgb Conc 33.4 g/dL (32-36); Mean Corpuscular Hgb 30.1 pg (27.0-32.0); Mean Corpuscular Volume 90.3 fL (81-99); Mean Platelet Vol. 11.4 fl (6.2-12.0); Monocyte# 0.72 X10^3/uL; Monocyte% 6.6 % (0-10); NRBC Flagged by Analyzer 0 % (0-5); Neutrophil # 7.77 X10^3/uL (2.7-7.7); Neutrophil % 71.4 % (47-70); Platelet Count 310 K/mm3 (150-450); RBC Distribution Width CV 13.8 % (11.6-14.6); RBC Distribution Width SD 45.9 fl (35.1-43.9); Red Blood Count 5.44 M/mm3 (4.2-5.4); White Blood Count 10.9 K/mm3 (4.4-11.0)
[2022-09-08 18:05] LABS: ALB/GLOB Ratio 1.2 RATIO (0.9-2.4); AST(SGOT) 15 U/L (15-37); Alanine Aminotransfer ALT/SGPT 18 U/L (13-56); Albumin, Serum 4.4 g/dL (3.2-5.0); Alkaline Phosphatase 133 U/L (45-117); Anion Gap 8 (5-15); BUN 25 mg/dL (7-18); BUN/Creat Ratio 25.5 RATIO (10-20); Calcium,Total 9.3 mg/dL (8.5-10.1); Chloride 106 mmol/L (98-107); Creatinine, Serum 0.98 mg/dL (0.55-1.02); EST Glomerular Filtration Rate 62 mL/min (>60); Est Glom Filt Rate - Afr Amer 75 mL/min (>60); Estimated Creatinine Clearance 49.49 ml/min; Globulin 3.7 g/dL (2.2-4.2); Glucose 94 mg/dL (74-106); Potassium 4.1 mmol/L (3.5-5.1); Protein, Total 8.1 g/dL (6.4-8.2); Sodium Level 134 mmol/L (136-145)
[2022-09-08 18:13] LABS: Color, Urine Yellow (Yellow); Glucose, Dipstick Normal (Normal); Ketone-Dipstick 50 mg/dl (Negative); Leukocyte Esterase-Dipstick 25 /ul (Negative); Nitrite-Dipstick Negative (Negative); Occult Blood-Urine Negative /ul (Negative); Protein-Dipstick 30 mg/dl (Negative); Specific Gravity, Urine 1.025 (1.002-1.030); Urine Clarity Clear (Clear); Urine Urobilinogen 1 mg/dl (Normal)
[2022-09-08 18:16] LABS: Urine Bilirubin Dipstick 1 mg/dL (Negative)
[2022-09-08 18:59] LABS: Squamous Epithelial Cells - UA 0-5 SEEN /hpf (5-10); White Blood Cells 0-5 SEEN /hpf (0-5)
--- NOTE | 2022-09-08 19:01 | EDS_ITS ---
HPI History of Present Illness Chief Complaint: Substance Abuse Detail of Chief Complaint: Opiate abuse Informant: patient and spouse/S.O. Onset/Context/Timing Onset: - (Patient states she has been using fentanyl for 1.5 years) Context: Sudden Onset Timing: Continuous Quality: Snorts 2 g/week Location: Intranasal Current Severity: Complains of symptoms of withdrawal, palpitations and tremors Maximum Severity: Mild Worsened by: Abstinence Relieved by: Nothing Associated Symptoms Associated Symptoms: Nausea, tremors and palpitations Narrative Narrative: Patient is a 57-year-old woman with history of systemic lupus arrhythmia ptosis, fibromyalgia, former alcohol heavy use, hypertension and fibromyalgia. Per old records patient would do 8-10 shots a day of vodka. Those records date back to 2013. Patient states that she was unable to follow-up with pain management because of COVID and she began to use street drugs. She denies IV drug use. She has used IV drugs in the past. Since she stopped using IV drugs she has been tested for hepatitis and HIV. She reports her tests were negative. She denies fever or chills. She denies headache. She denies ocular, visual or auditory symptoms. She denies respiratory symptoms. She denies cardiac symptoms. She does report intermittent abdominal discomfort. She does endorse vomiting several times this past weekend. She does endorse thirst, dry mouth and lightheadedness. She states she last used on Wednesday. She states she was in the emergency department on Wednesday. She was. She was offered Suboxone, which she declined. She states Suboxone put her in withdrawal in the past. Prior similar symptoms: Yes Recent Illness/Hospitalization: No PFSH PFSH Medical History Agoraphobia Fibromyalgia Fusion of lumbar spine Hypertension Lupus Smoker Home Medications clonidine HCl 0.1 mg tablet 0.1 mg PO TID #10 tabs 09/06/22 [Rx Last Taken Unknown] promethazine 25 mg tablet 25 mg PO Q6H PRN PRN Nausea #16 TABLETS 09/06/22 [Rx Last Taken Unknown] tramadol 50 mg tablet 50 mg PO Q4H PRN PRN Pain 3 days #16 tabs 09/06/22 [Rx Last Taken Unknown] Allergy/AdvReac Type Severity Reaction Status Date / Time hydrocodone bitartrate Allergy Rash Verified 09/08/22 15:01 [From Vicodin] nortriptyline HCl Allergy Rash Verified 09/08/22 15:01 [From Pamelor] gabapentin AdvReac Other Verified 09/08/22 15:01 prednisone AdvReac Other Verified 09/08/22 15:01 pregabalin [From Lyrica] AdvReac Other Verified 09/08/22 15:01 zolpidem tartrate AdvReac Other Verified 09/08/22 15:01 [From Ambien] Social History (Updated 09/08/22 @ 19:[address] Eddie Alanis MD) household members: significant other Smoking Status: Current every day smoker tobacco type: cigarettes alcohol intake: former substance use type: former substance user ROS ROS ED Constitutional Constitutional ED: Reports chills; Denies fever(s), subjective, sweats or weight loss Eyes Eyes: Denies blurry vision, change in vision or diplopia ENT ENT ED: Denies ear pain, rhinorrhea or sore throat Cardiovascular Cardiovascular: Reports palpitations; Denies chest pain Respiratory/Chest Respiratory/Chest: Denies cough, dyspnea or dyspnea on exertion Gastrointestinal Gastrointestinal: Reports abdominal pain, nausea and vomiting; Denies constipation, diarrhea or melena Genitourinary Genitourinary ED: Denies dysuria, hematuria or urinary frequency Musculoskeletal Musculoskeletal: Reports myalgias; Denies arthralgias, back pain or neck pain Integumentary Denies Abrasions or rash Neurologic Neurologic: Denies headache(s), paresthesias or weakness Psychiatric Psychiatric: Denies anxiety Endocrine Endocrinology: Denies cold intolerance or heat intolerance Hematologic/Lymphatic Hematologic/Lymphatic: Reports systems reviewed and no addt'l complaints, except as documented EXAM Physical Exam Const Vital Signs: 09/08/22 15:02 09/08/22 17:03 Temperature 98.3 F Temperature Source Temporal Pulse Rate 106 H 88 Respiratory Rate 22 H 17 Blood Pressure 162/98 H 110/72 Blood Pressure Mean 119 84 Pulse Ox 98 Oxygen Delivery Method Room Air Positive well nourished and well developed General Appearance ED: well developed and NAD; Negative for cyanotic, diaphoretic or pallor HEENT Reports dry mucous membranes HEENT Narrative: Head is atraumatic normocephalic. Mouth ED: Yes dry mucous membranes Mouth: dry mucous membranes Eyes PERRL and EOMs intact bilaterally Eyes Narrative: There is no nystagmus. General Eye ED: Negative for pale conjunctiva or scleral icterus Neck no lymphadenopathy, supple and no JVD Chest Wall inspection of chest normal and palpation of chest normal Resp normal respiratory effort and clear to auscultation bilaterally Cardio regular rhythm, S1 normal heart sound, S2 normal heart sound and no murmurs Rate: tachycardic GI normal to inspection, nondistended, normoactive bowel sounds, non-tender and non-distended; Negative for hepatosplenomegaly Back/Spine no CVA tenderness Extremity normal to inspection Extremity Narrative: No track christie are noted. General Extremety ED: Negative for edema or tenderness General Extremity: Negative for edema Neuro oriented x3, CN's II-XII intact bilaterally and no sensory deficits noted Sensorium / Orientation: alert Psych mental status grossly normal Skin no rashes or lesions noted, no wounds and No skin turgor normal General Skin Exam: Negative for elasticity normal, jaundice or pallor MDM MDM MDM Narrative Medical decision making narrative: Patient has symptoms of opiate withdrawal. IV was established. Clinically she appears dehydrated. Since she is a middle-aged woman with nausea vomiting orthostatic symptoms history of hypertension we will obtain competence metabolic panel assess renal function, CO2 anion gap as well as liver enzymes. CBC to assess white count and H&H. Tox screen and alcohol level were obtained per addiction medicine order set. History & Record Review Discussion w/independent historian: Patient and Significant other Additional record(s) reviewed:: Prior inpatient record, Prior outpatient record and Prior labs Lab Data Attestation: I reviewed the patient's lab results. Lab results narrative: See BC reveals hemoconcentration which is consistent with dehydration. Patient has a normal anion gap mild asked to dose this with a CO2 of 20. Urine is ketones and system with her eating the past 4 days. Specific gravity is elevated at 1.025. There is no evidence of infection. Labs: Laboratory Results - last 24 hr 09/08/22 09/08/22 09/08/22 17:10 17:10 17:10 WBC 10.9 RBC 5.44 H Hgb 16.4 H Hct 49.1 H MCV 90.3 MCH 30.1 MCHC 33.4 RDW Std Deviation 45.9 H RDW Coeff of Anatoliy 13.8 Plt Count 310 MPV 11.4 Immature Gran % (Auto) 0.500 Neut % (Auto) 71.4 H Lymph % (Auto) 19.8 [place] % (Auto) 6.6 Eos % (Auto) 1.1 Baso % (Auto) 0.6 Absolute Neuts (auto) 7.8 H Absolute Lymphs (auto) 2.16 Nucleated RBC % 0 Sodium 134 L Potassium 4.1 Chloride 106 Carbon Dioxide 20.0 L Anion Gap 8 BUN 25 H Creatinine 0.98 Estim Creat Clear Calc 49.49 Est GFR (MDRD) Af Amer 75 Est GFR (MDRD) Non-Af 62 BUN/Creatinine Ratio 25.5 H Glucose 94 Calcium 9.3 Total Bilirubin 0.40 AST 15 ALT 18 Alkaline Phosphatase 133 H Total Protein 8.1 Albumin 4.4 Globulin 3.7 Albumin/Globulin Ratio 1.2 Urine Color Urine Clarity Urine pH Ur Specific [place] Urine Protein Urine Glucose (UA) Urine Ketones Urine Occult Blood Urine Nitrite Urine Bilirubin Urine Urobilinogen Ur Leukocyte Esterase Urine RBC Urine WBC Ur Squamous Epith Cells Urine Bacteria Urine Mucus Urine Opiates Screen Urine Methadone Screen Ur Barbiturates Screen Ur Phencyclidine Scrn Ur Amphetamines Screen MDMA (Ecstasy) Screen U Benzodiazepines Scrn Urine Cocaine Screen U Cannabinoids Screen Ur Drug Screen Comment Ethyl Alcohol 3.0 09/08/22 09/08/22 17:21 17:21 WBC RBC Hgb Hct MCV MCH MCHC RDW Std Deviation RDW Coeff of Anatoliy Plt Count MPV Immature Gran % (Auto) Neut % (Auto) Lymph % (Auto) [place] % (Auto) Eos % (Auto) Baso % (Auto) Absolute Neuts (auto) Absolute Lymphs (auto) Nucleated RBC % Sodium Potassium Chloride Carbon Dioxide Anion Gap BUN Creatinine Estim Creat Clear Calc Est GFR (MDRD) Af Amer Est GFR (MDRD) Non-Af BUN/Creatinine Ratio Glucose Calcium Total Bilirubin AST ALT Alkaline Phosphatase Total Protein Albumin Globulin Albumin/Globulin Ratio Urine Color Yellow Urine Clarity Clear Urine pH 5.0 Ur Specific [place] 1.025 Urine Protein 30 H Urine Glucose (UA) Normal Urine Ketones 50 H Urine Occult Blood Negative Urine Nitrite Negative Urine Bilirubin 1 H Urine Urobilinogen 1 H Ur Leukocyte Esterase 25 H Urine RBC 0 SEEN Urine WBC 0-5 SEEN Ur Squamous Epith Cells 0-5 SEEN Urine Bacteria 0 SEEN Urine Mucus 0 SEEN Urine Opiates Screen POSITIVE H Urine Methadone Screen NEGATIVE Ur Barbiturates Screen NEGATIVE Ur Phencyclidine Scrn NEGATIVE Ur Amphetamines Screen NEGATIVE MDMA (Ecstasy) Screen POSITIVE H U Benzodiazepines Scrn NEGATIVE Urine Cocaine Screen NEGATIVE U Cannabinoids Screen NEGATIVE Ur Drug Screen Comment Ethyl Alcohol Discharge Plan Triage Chief Complaint: Substance Abuse ED Provider: Eddie Alanis Dx/Rx/DC Orders Clinical Impression: Opiate dependence, SLE (systemic lupus erythematosus), Opiate withdrawal, Fibromyalgia, Tachycardia, Dehydration, moderate, Ketosis Prescriptions: No Action tramadol 50 mg tablet 50 mg PO Q4H PRN PRN (Reason: Pain) 3 Days Qty: 16 0RF clonidine HCl 0.1 mg tablet 0.1 mg PO TID Qty: 10 0RF promethazine [promethazine] 25 mg tablet 25 mg PO Q6H PRN PRN (Reason: Nausea) Qty: 16 0RF Primary Care Provider: Care Physician,No Primary Referrals: Care Physician,No Primary [Primary Care Provider] - Disposition Disposition: [facility]
[2022-09-08 19:22] LABS: Amphetamine Urine VISTA NEGATIVE (<1000 ng/mL); Barbiturate Urine VISTA NEGATIVE (< 200 ng/mL); Benzodiazepine Urine VISTA NEGATIVE (< 200 ng/mL); Cocaine Urine VISTA NEGATIVE (< 300 ng/mL); Ecstacy Urine VISTA POSITIVE (< 500 ng/mL); Methadone Urine VISTA NEGATIVE (< 300 ng/mL); PCP Urine VISTA NEGATIVE (< 25 ng/mL); THC Urine VISTA NEGATIVE (< 50 ng/mL); Vista UDS pH Range 6
--- NOTE | 2022-09-08 19:46 | HP.PCM.HOS_ITS ---
HPI - General General Date of Admission: 09/08/22 Date of Service: 09/08/22 Chief Complaint: Desire for opiate detoxification HPI Narrative EMILY DELACRUZ, is a 57 F with a significant history of chronic pain; fibromyalgia; lupus and fentanyl abuse who presents to the emergency department for help with opioid detoxification. Patient's drug of choice is fentanyl that she snorts about 2 g/week. Last time he used fentanyl was 6 days ago. Reportedly she has been using fentanyl for a year and a half because she cannot get anyone to prescribe her pain medication for her chronic pain. 2 days ago she was at the emergency department because of withdrawal symptoms and was prescribed tramadol and clonidine. She refused Suboxone at that time since it puts her into immediate withdrawal. She reports withdrawal symptoms of worsening insomnia above her baseline, vertigo and lightheadedness. She reports feeling a week and anorexic. She had nausea and vomiting but that has since resolved. PFSH Medical History Agoraphobia Fibromyalgia Fusion of lumbar spine Hypertension Lupus Smoker Home Medications clonidine HCl 0.1 mg tablet 0.1 mg PO TID #10 tabs 09/06/22 [Rx Last Taken Unknown] promethazine 25 mg tablet 25 mg PO Q6H PRN PRN Nausea #16 TABLETS 09/06/22 [Rx Last Taken Unknown] tramadol 50 mg tablet 50 mg PO Q4H PRN PRN Pain 3 days #16 tabs 09/06/22 [Rx Last Taken Unknown] Allergy/AdvReac Type Severity Reaction Status Date / Time hydrocodone bitartrate Allergy Rash Verified 09/08/22 15:01 [From Vicodin] nortriptyline HCl Allergy Rash Verified 09/08/22 15:01 [From Pamelor] gabapentin AdvReac Other Verified 09/08/22 15:01 prednisone AdvReac Other Verified 09/08/22 15:01 pregabalin [From Lyrica] AdvReac Other Verified 09/08/22 15:01 zolpidem tartrate AdvReac Other Verified 09/08/22 15:01 [From Ambien] Family History Other Cancer Leukemia Surgical History H/O: hysterectomy History of back surgery Social History household members: significant other Smoking Status: Current every day smoker tobacco type: cigarettes alcohol intake: former substance use type: former substance user ROS ROS Narrative Pertinent positives and pertinent negatives as noted in HPI. All other systems were reviewed and are negative Vital Signs Vital Signs Vital Signs: 09/08/22 15:02 09/08/22 17:03 Temperature 98.3 F Temperature Source Temporal Pulse Rate 106 H 88 Respiratory Rate 22 H 17 Blood Pressure 162/98 H 110/72 Blood Pressure Mean 119 84 Pulse Ox 98 Oxygen Delivery Method Room Air Weight Weight: 77.383 kg Body Mass Index (BMI) 31.1 Physical Exam Narrative Physical exam: General: Well-nourished, well-developed. Head: Normocephalic, atraumatic, no tenderness Eyes: Vision is grossly intact. EOMI ENT, no trauma, dry mucous membranes, no rhinorrhea Neck: Nontender, No thyromegaly. CVS: Regular rate and rhythm. S1-S2 present. No murmur, gallop or rub. Respiratory : clear to auscultation bilaterally, chest wall nontender Abdomen: Soft, nontender, nondistended, normal bowel sounds, no masses : Deferred Back: Nontender, no CVA tenderness, no midline spinal tenderness, deformities, step-offs Extremities: Nontender full range of motion, no trauma Skin: Normal color, no trauma, abrasions Neuro: Alert, oriented, cranial nerves II through XII grossly intact. Psychiatry: Normal mood. Normal affect. Not depressed. Not anxious. Results Lab / Micro Data Result Diagrams: 09/08/22 17:10 09/08/22 17:10 Labs: Laboratory Results - last 24 hr 09/08/22 17:10: WBC 10.9, RBC 5.44 H, Hgb 16.4 H, Hct 49.1 H, MCV 90.3, MCH 30.1, MCHC 33.4, RDW Std Deviation 45.9 H, RDW Coeff of Anatoliy 13.8, Plt Count 310, MPV 11.4, Immature Gran % (Auto) 0.500, Neut % (Auto) 71.4 H, Lymph % (Auto) 19.8, [place] % (Auto) 6.6, Eos % (Auto) 1.1, Baso % (Auto) 0.6, Absolute Neuts (auto) 7.8 H, Absolute Lymphs (auto) 2.16, Nucleated RBC % 0 09/08/22 17:10: Sodium 134 L, Potassium 4.1, Chloride 106, Carbon Dioxide 20.0 L , Anion Gap 8, BUN 25 H, Creatinine 0.98, Estim Creat Clear Calc 49.49, Est GFR (MDRD) Af Amer 75, Est GFR (MDRD) Non-Af 62, BUN/Creatinine Ratio 25.5 H, Glucose 94, Calcium 9.3, Total Bilirubin 0.40, AST 15, ALT 18, Alkaline Phosphatase 133 H, Total Protein 8.1, Albumin 4.4, Globulin 3.7, Albumin/Globulin Ratio 1.2 09/08/22 17:10: Ethyl Alcohol 3.0 09/08/22 17:21: Urine Opiates Screen POSITIVE H, Urine Methadone Screen NEGATIVE, Ur Barbiturates Screen NEGATIVE, Ur Phencyclidine Scrn NEGATIVE, Ur Amphetamines Screen NEGATIVE, MDMA (Ecstasy) Screen POSITIVE H, U Benzodiazepines Scrn NEGATIVE, Urine Cocaine Screen NEGATIVE, U Cannabinoids Screen NEGATIVE, Ur Drug Screen Comment 09/08/22 17:21: Urine Color Yellow, Urine Clarity Clear, Urine pH 5.0, Ur Sp ecific [place] 1.025, Urine Protein 30 H, Urine Glucose (UA) Normal, Urine Ketones 50 H, Urine Occult Blood Negative, Urine Nitrite Negative, Urine Bilirubin 1 H, Urine Urobilinogen 1 H, Ur Leukocyte Esterase 25 H, Urine RBC 0 SEEN, Urine WBC 0-5 SEEN, Ur Squamous Epith Cells 0-5 SEEN, Urine Bacteria 0 SEEN, Urine Mucus 0 SEEN Assessment & Plan Assessment/Plan (1) Desire for detoxification: (2) Hypertension: (3) Dehydration: PLAN: Plan Opioid dependence and withdrawal Patient be started on Subutex and other adjunctive medications: dicyclomine as needed; Vistaril as needed; methocarbamol as needed; clonidine as needed; Imodium as needed; trazodone as needed and Zofran as needed. Monitor COWS and CINA score Tobacco abuse Counseled Nicotine patch prescribed. Dehydration/ketosis Patient with hemoglobin of 16.4. Likely from hemoconcentration secondary dehydration and smoking. Bicarb level of 20; BUN of 25; which os the highest being so far. BUN over creatinine of 25.5. Dry mucous membrane presentation. Urinalysis is positive for ketosis. IV fluids ordered. Trend BMP. Hypertension She reported previously she was on metoprolol 50 mg twice daily but she does not follow-up with any PCP at this time. Blood pressure is not within goal. We will start patient on metoprolol 12.5 mg p.o. twice daily. Trend blood pressure and adjust after history. DVT prophylaxis Low risk Encourage to ambulate Charges/Coding Visit Charges Inpatient E&M: 20354 Init Hosp L3
[2022-09-08 22:17] VITALS: BMI 31.0
[2022-09-08 22:24] VITALS: BP 153/100; PULSE 95; RESP 18; TEMP 36.9; O2SAT 96
[2022-09-08] MEDS: 0.9% Normal Saline 1,000 ML 100 ML IV (22:47)
[2022-09-08 22:48] VITALS: PULSE 95
[2022-09-08] MEDS: cloNIDine HCl 0.1 MG Tablet PO (22:48)
[2022-09-08] MEDS: Metoprolol Tartrate 25 MG Tablet 12.5 MG PO (22:48)
[2022-09-08] MEDS: Buprenorphine HCl 2 MG TAB.SUBL 4 MG SL (22:48)
[2022-09-08] MEDS: traZODone 100 MG Tablet PO (22:48)
[2022-09-08] MEDS: Methocarbamol 750 MG Tablet 1500 MG PO (22:48)
[2022-09-09] MEDS: hydrOXYzine PAM 25 MG Capsule 50 MG PO (01:18)
[2022-09-09] MEDS: Pramipexole Di-HCl 0.125 MG Tablet PO (01:18)
[2022-09-09 01:54] VITALS: BP 143/91; PULSE 65; RESP 16; TEMP 36.6; O2SAT 98
[2022-09-09] MEDS: Buprenorphine HCl 2 MG TAB.SUBL 4 MG SL (05:28)
[2022-09-09] MEDS: Methocarbamol 750 MG Tablet 1500 MG PO (05:28)
[2022-09-09 06:21] LABS: Absolute Lymphocyte Count 3.65 X10^3/uL (0.83-4.51); Absolute Neutrophil Count 7.5 X10^3/uL (2.0-7.7); Basophil# 0.12 X10^3/uL; Basophil% 0.9 % (0-1); Eosinophil# 0.31 X10^3/uL; Eosinophils% 2.4 % (0-5); Hematocrit 45.8 % (37-47); Hemoglobin 14.6 g/dL (12.0-15.0); Lymphocyte # 3.65 X10^3/ul (0.83-4.51); Lymphocyte % 28.5 % (19-41); Mean Corp Hgb Conc 31.9 g/dL (32-36); Mean Corpuscular Hgb 30.1 pg (27.0-32.0); Mean Corpuscular Volume 94.4 fL (81-99); Mean Platelet Vol. 11.1 fl (6.2-12.0); Monocyte# 1.17 X10^3/uL; Monocyte% 9.1 % (0-10); NRBC Flagged by Analyzer 0 % (0-5); Neutrophil # 7.49 X10^3/uL (2.7-7.7); Neutrophil % 58.6 % (47-70); Platelet Count 279 K/mm3 (150-450); RBC Distribution Width CV 13.8 % (11.6-14.6); RBC Distribution Width SD 47.8 fl (35.1-43.9); Red Blood Count 4.85 M/mm3 (4.2-5.4); White Blood Count 12.8 K/mm3 (4.4-11.0)
[2022-09-09 06:49] LABS: Anion Gap 6 (5-15); BUN 29 mg/dL (7-18); BUN/Creat Ratio 27.4 RATIO (10-20); Calcium,Total 8.3 mg/dL (8.5-10.1); Chloride 108 mmol/L (98-107); Creatinine, Serum 1.06 mg/dL (0.55-1.02); EST Glomerular Filtration Rate 57 mL/min (>60); Est Glom Filt Rate - Afr Amer 68 mL/min (>60); Estimated Creatinine Clearance 45.75 ml/min; Glucose 126 mg/dL (74-106); Potassium 3.3 mmol/L (3.5-5.1); Sodium Level 135 mmol/L (136-145)
--- NOTE | 2022-09-09 07:13 | PCM.PN.HOSP ---
Reason for Visit Reason for Visit: Diagnoses Dehydration (09/08/22) Essential (primary) hypertension (09/08/22) Subjective Subjective Feels much better. Eating and tolerating diet. States that she chronically has insomnia that was helped while she was on BZDs. Objective Data Objective Data Vital Signs: Vital Signs Temp Pulse Resp BP Pulse Ox O2 Del Method 36.6 C 65 16 143/91 H 98 Room Air 09/09/22 01:54 09/09/22 01:54 09/09/22 01:54 09/09/22 01:54 09/09/22 01:54 09/09/22 01:54 Oxygen Delivery Method Room Air Weight: 77 kg Body Mass Index (BMI) 31.0 Intake & Output: Intake and Output for Last 24 Hours 09/07/22 09/08/22 09/09/22 23:59 23:59 23:59 Intake Total 450 / 450 Balance 450 / 450 Lab / Micro Data Result Diagrams: 09/09/22 05:30 09/09/22 05:30 Labs: Laboratory Results - last 24 hr 09/08/22 17:10: WBC 10.9, RBC 5.44 H, Hgb 16.4 H, Hct 49.1 H, MCV 90.3, MCH 30.1, MCHC 33.4, RDW Std Deviation 45.9 H, RDW Coeff of Anatoliy 13.8, Plt Count 310, MPV 11.4, Immature Gran % (Auto) 0.500, Neut % (Auto) 71.4 H, Lymph % (Auto) 19.8, [place] % (Auto) 6.6, Eos % (Auto) 1.1, Baso % (Auto) 0.6, Absolute Neuts (auto) 7.8 H, Absolute Lymphs (auto) 2.16, Nucleated RBC % 0 09/08/22 17:10: Sodium 134 L, Potassium 4.1, Chloride 106, Carbon Dioxide 20.0 L, Anion Gap 8, BUN 25 H, Creatinine 0.98, Estim Creat Clear Calc 49.49, Est GFR (MDRD) Af Amer 75, Est GFR (MDRD) Non-Af 62, BUN/Creatinine Ratio 25.5 H, Glucose 94, Calcium 9.3, Total Bilirubin 0.40, AST 15, ALT 18, Alkaline Phosphatase 133 H, Total Protein 8.1, Albumin 4.4, Globulin 3.7, Albumin/Globulin Ratio 1.2 09/08/22 17:10: Ethyl Alcohol 3.0 09/08/22 17:21: Urine Opiates Screen POSITIVE H, Urine Methadone Screen NEGATIVE, Ur Barbiturates Screen NEGATIVE, Ur Phencyclidine Scrn NEGATIVE, Ur Amphetamines Screen NEGATIVE, MDMA (Ecstasy) Screen POSITIVE H, U Benzodiazepines Scrn NEGATIVE, Urine Cocaine Screen NEGATIVE, U Cannabinoids Screen NEGATIVE, Ur Drug Screen Comment 09/08/22 17:21: Urine Color Yellow, Urine Clarity Clear, Urine pH 5.0, Ur Specific [place] 1.025, Urine Protein 30 H, Urine Glucose (UA) Normal, Urine Ketones 50 H, Urine Occult Blood Negative, Urine Nitrite Negative, Urine Bilirubin 1 H, Urine Urobilinogen 1 H, Ur Leukocyte Esterase 25 H, Urine RBC 0 SEEN, Urine WBC 0-5 SEEN, Ur Squamous Epith Cells 0-5 SEEN, Urine Bacteria 0 SEEN, Urine Mucus 0 SEEN 09/09/22 05:30: Sodium 135 L, Potassium 3.3 L, Chloride 108 H, Carbon Dioxide 21.0, Anion Gap 6, BUN 29 H, Creatinine 1.06 H, Estim Creat Clear Calc 45.75, Est GFR (MDRD) Af Amer 68, Est GFR (MDRD) Non-Af 57 L, BUN/Creatinine Ratio 27.4 H, Glucose 126 H, Calcium 8.3 L 09/09/22 05:30: WBC 12.8 H, RBC 4.85, Hgb 14.6, Hct 45.8, MCV 94.4, MCH 30.1, MCHC 31.9 L, RDW Std Deviation 47.8 H, RDW Coeff of Anatoliy 13.8, Plt Count 279, MPV 11.1, Immature Gran % (Auto) 0.500, Neut % (Auto) 58.6, Lymph % (Auto) 28.5, [place] % (Auto) 9.1, Eos % (Auto) 2.4, Baso % (Auto) 0.9, Absolute Neuts (auto) 7.5, Absolute Lymphs (auto) 3.65, Nucleated RBC % 0 Physical Exam Const alert and no apparent distress Resp normal respiratory effort, no retractions, no use of accessory muscles and clear to auscultation bilaterally Cardio regular rate, regular rhythm, S1 normal heart sound and S2 normal heart sound GI normal to inspection, nondistended, normoactive bowel sounds, soft to palpation, non-tender and non-distended Extremity normal to inspection and full ROM Psych affect normal Assessment & Plan Assessment/Plan (1) Desire for detoxification: PLAN: Snort fentanyl. Last use was 1 week ago. Patient is out of the window of acute opiate withdrawal. DC buprenorphine Patient declines any additional addiction resources at this time. (2) Ketosis: PLAN: Dehydration/ketosis maureen precipiated by acute opiate withdrawal last week and could not get out from under until she was hydrated. Resolved (3) Hypertension: PLAN: Hypertension She reported previously she was on metoprolol 50 mg twice daily but she does not follow-up with any PCP at this time. Blood pressure is not within goal. We will start patient on metoprolol 12.5 mg p.o. twice daily. Trend blood pressure and adjust after history. (4) Hypokalemia: PLAN: Replace check magnesium (5) Insomnia: PLAN: Chronic. Goes days without sleeping or sleeping very little. Had been on BZDs which helped, but has since been discontinued. Has had bizarre behavior with zolpidem, thinking she was Sada Gonsalves. Cannot tolerate trazadone. Takes large doses (100mg) of diphenhydramine at night, which does not help her. Has tried meditation (for chronic pain purposes) which she states makes her angry. I told her she is beyond my recommendations, though I did recommend lower doses of diphenhydramine (25-50). Recommend she follow up with psychiatry for input, if that fails, then see sleep medicine. PLAN: Plan Discharge home. Patient improved much sooner than initially anticipated upon admission.
[2022-09-09 07:48] VITALS: BP 116/73; PULSE 83; RESP 18; TEMP 36.8; O2SAT 99
[2022-09-09] MEDS: Potassium Chloride Oral Tablet 20 MEQ 40 MEQ PO (07:54)
[2022-09-09 08:11] LABS: Magnesium 2.1 mg/dL (1.6-2.6)
--- NOTE | 2022-09-09 09:11 | DCINST_ITS ---
Discharge Instructions Diet Discharge Diet: No restrictions Activity Discharge Activity: Return to Normal Activity Follow Up Care Test Results: Test results from this visit will be discussed in further detail at your follow- up appointment, if applicable. Discharge Plan Admission Admit Date/Time: 09/08/22 19:37 Primary Reason for Your Visit: dehydration. Attending Provider: Matthew Adams Primary Care Provider: Alison Pena,No Primary Consulting Providers: Oliverio Ely Instructions Additional Instructions / Restrictions: Follow up with Psychiatry/Psychology for help with anxiety/insomnia. If that does not help, then follow up with a sleep medicine specialist. Follow up with primary care physician within 1 month. Discharge Orders/Prescriptions Prescriptions: New diphenhydramine HCl 25 mg capsule 25 mg PO QHS PRN (Reason: insominia) Qty: 30 0RF Continued promethazine 25 mg tablet 25 mg PO Q6H PRN PRN (Reason: Nausea) Qty: 16 0RF clonidine HCl 0.1 mg tablet 0.1 mg PO TID Discontinued tramadol 50 mg tablet 50 mg PO Q4H PRN PRN (Reason: Pain) 3 Days Qty: 16 0RF Referrals / Follow Up: Care Physician,No Primary [Primary Care Provider] - Disposition Disposition (needs filled in before D/C Order can be placed): Home, Self Care
--- NOTE | 2022-09-09 09:16 | DS.PCM_ITS ---
Providers Date of Admission: 09/08/22 Primary Care Physician: No Primary Care Phys Reason For Visit: DESIRE FOR OPIOID DETOXIFICATION Diagnosis Discharge Diagnosis (1) Desire for detoxification: Status: Acute Plan: Snort fentanyl. Last use was 1 week ago. Patient is out of the window of acute opiate withdrawal. DC buprenorphine Patient declines any additional addiction resources at this time. (2) Ketosis: Status: Acute Code(s): E88.89 - Other specified metabolic disorders Plan: Dehydration/ketosis maureen precipiated by acute opiate withdrawal last week and could not get out from under until she was hydrated. Resolved (3) Hypertension: Status: Chronic Code(s): I10 - Essential (primary) hypertension Plan: Hypertension She reported previously she was on metoprolol 50 mg twice daily but she does not follow-up with any PCP at this time. Blood pressure is not within goal. BP better. Likely extremely high on the for acute opiate withdrawal. Much better today. i would be concerned about BP dropping further, so will discontinue metoprolol. (4) Hypokalemia: Status: Acute Code(s): E87.6 - Hypokalemia Plan: Replace check magnesium (5) Insomnia: Status: Acute Code(s): G47.00 - Insomnia, unspecified Plan: Chronic. Goes days without sleeping or sleeping very little. Had been on BZDs which helped, but has since been discontinued. Has had bizarre behavior with zolpidem, thinking she was Sada Gonsalves. Cannot tolerate trazadone. Takes large doses (100mg) of diphenhydramine at night, which does not help her. Has tried meditation (for chronic pain purposes) which she states makes her angry. I told her she is beyond my recommendations, though I did recommend lower doses of diphenhydramine (25-50). Recommend she follow up with psychiatry for input, if that fails, then see sleep medicine. Plan Discharge home. Patient improved much sooner than initially anticipated upon admission. Medications at Discharge Home Medications promethazine 25 mg tablet 25 mg PO Q6H PRN PRN Nausea #16 TABLETS 09/06/22 clonidine HCl 0.1 mg tablet 0.1 mg PO TID Check with primary doctor 09/08/22 diphenhydramine HCl 25 mg capsule 25 mg PO QHS PRN insominia #30 caps 09/09/22 Hospital Course Operations None Procedures None Summary of Care Provided Minutes Spent on Discharge: 35 Weight / BMI Weight Weight: 77 kg Body Mass Index (BMI) 31.0 ABG / Lab / Microbiology Data Result Diagrams: 09/09/22 05:30 09/09/22 05:30 Laboratory: Laboratory Results - last 24 hr 09/08/22 17:10: WBC 10.9, RBC 5.44 H, Hgb 16.4 H, Hct 49.1 H, MCV 90.3, MCH 30.1, MCHC 33.4, RDW Std Deviation 45.9 H, RDW Coeff of Anatoliy 13.8, Plt Count 310, MPV 11.4, Immature Gran % (Auto) 0.500, Neut % (Auto) 71.4 H, Lymph % (Auto) 19.8, [place] % (Auto) 6.6, Eos % (Auto) 1.1, Baso % (Auto) 0.6, Absolute Neuts (auto) 7.8 H, Absolute Lymphs (auto) 2.16, Nucleated RBC % 0 09/08/22 17:10: Sodium 134 L, Potassium 4.1, Chloride 106, Carbon Dioxide 20.0 L , Anion Gap 8, BUN 25 H, Creatinine 0.98, Estim Creat Clear Calc 49.49, Est GFR (MDRD) Af Amer 75, Est GFR (MDRD) Non-Af 62, BUN/Creatinine Ratio 25.5 H, Glucose 94, Calcium 9.3, Total Bilirubin 0.40, AST 15, ALT 18, Alkaline Phosphatase 133 H, Total Protein 8.1, Albumin 4.4, Globulin 3.7, Albumin/Globulin Ratio 1.2 09/08/22 17:10: Ethyl Alcohol 3.0 09/08/22 17:21: Urine Opiates Screen POSITIVE H, Urine Methadone Screen NEGATIVE, Ur Barbiturates Screen NEGATIVE, Ur Phencyclidine Scrn NEGATIVE, Ur Amphetamines Screen NEGATIVE, MDMA (Ecstasy) Screen POSITIVE H, U Benzodiazepines Scrn NEGATIVE, Urine Cocaine Screen NEGATIVE, U Cannabinoids Screen NEGATIVE, Ur Drug Screen Comment 09/08/22 17:21: Urine Color Yellow, Urine Clarity Clear, Urine pH 5.0, Ur Specific [place] 1.025, Urine Protein 30 H, Urine Glucose (UA) Normal, Urine Ketones 50 H, Urine Occult Blood Negative, Urine Nitrite Negative, Urine Bilirubin 1 H, Urine Urobilinogen 1 H, Ur Leukocyte Esterase 25 H, Urine RBC 0 SEEN, Urine WBC 0-5 SEEN, Ur Squamous Epith Cells 0-5 SEEN, Urine Bacteria 0 SEEN, Urine Mucus 0 SEEN 09/09/22 05:30: Sodium 135 L, Potassium 3.3 L, Chloride 108 H, Carbon Dioxide 21.0, Anion Gap 6, BUN 29 H, Creatinine 1.06 H, Estim Creat Clear Calc 45.75, Est GFR (MDRD) Af Amer 68, Est GFR (MDRD) Non-Af 57 L, BUN/Creatinine Ratio 27.4 H, Glucose 126 H, Calcium 8.3 L 09/09/22 05:30: WBC 12.8 H, RBC 4.85, Hgb 14.6, Hct 45.8, MCV 94.4, MCH 30.1, MCHC 31.9 L, RDW Std Deviation 47.8 H, RDW Coeff of Anatoliy 13.8, Plt Count 279, MPV 11.1, Immature Gran % (Auto) 0.500, Neut % (Auto) 58.6, Lymph % (Auto) 28.5, [place] % (Auto) 9.1, Eos % (Auto) 2.4, Baso % (Auto) 0.9, Absolute Neuts (auto) 7.5, Absolute Lymphs (auto) 3.65, Nucleated RBC % 0 09/09/22 05:30: Magnesium 2.1 D/C Instructions Discharge Diet: No restrictions Meaningful Use Info Meaningful Use Diagnoses (Choose all that apply): None applicable Discharge Plan Admission Admit Date/Time: 09/08/22 19:37 Primary Reason for Your Visit: dehydration. Attending Provider: Matthew Adams Primary Care Provider: Care Physician,No Primary Consulting Providers: Oliverio Ely Instructions Additional Instructions / Restrictions: Follow up with Psychiatry/Psychology for help with anxiety/insomnia. If that does not help, then follow up with a sleep medicine specialist. Follow up with primary care physician within 1 month. Discharge Orders/Prescriptions Prescriptions: New diphenhydramine HCl 25 mg capsule 25 mg PO QHS PRN (Reason: insominia) Qty: 30 0RF Continued promethazine 25 mg tablet 25 mg PO Q6H PRN PRN (Reason: Nausea) Qty: 16 0RF clonidine HCl 0.1 mg tablet 0.1 mg PO TID Discontinued tramadol 50 mg tablet 50 mg PO Q4H PRN PRN (Reason: Pain) 3 Days Qty: 16 0RF Referrals / Follow Up: Care Physician,No Primary [Primary Care Provider] - Disposition Disposition (needs filled in before D/C Order can be placed): Home, Self Care Charges/Coding Visit Charges Inpatient E&M: 18183 Disch Hosp >30min
[2022-09-09 09:55] VITALS: BP 116/73; PULSE 83; RESP 18; TEMP 36.8; O2SAT 99
--- NOTE | 2022-09-09 10:08 | PHA.DC.MR ---
Pharmacy Service has performed discharge medication reconciliation for this patient. The patient's discharge medication list was reviewed for discrepancies and discrepancies were resolved. Home Medications promethazine 25 mg tablet 25 mg PO Q6H PRN PRN Nausea #16 TABLETS 09/06/22 clonidine HCl 0.1 mg tablet 0.1 mg PO TID Check with primary doctor 09/08/22 diphenhydramine HCl 25 mg capsule 25 mg PO QHS PRN insomnia #30 caps 09/09/22
--- NOTE | 2022-09-09 10:10 | NURSING ---
pt given card/contact info for Jacoby CROWE Navigator and encouraged to wait to leave for discharge tills to met with Jacoby for discharge planning.
== END 2022-09-09 10:30 | disposition home or self-care (01) | DRG 897 ==
LOC: ED 19:38 → MS3 20:15
PROVIDERS: Admitting Provider Hospitalist; Emergency Provider Emergency Medicine
DX: F11.23 Opioid dependence with withdrawal (principal); E88.89 Other specified metabolic disorders; M32.9 Systemic lupus erythematosus, unspecified; E86.0 Dehydration; M79.7 Fibromyalgia; F17.210 Nicotine dependence, cigarettes, uncomplicated; I10 Essential (primary) hypertension; E87.6 Hypokalemia; R00.0 Tachycardia, unspecified; G47.00 Insomnia, unspecified
CPT/HCPCS: 36415; 80048; 80053; 80307; 81001; 82077; 83735; 85025; 99282; 99283; J7030

== ENCOUNTER 2024-07-14 10:53 | Inpatient (IN) | payer MEDICARE, SELFPAY ==
[2024-07-14] VITALS (7 sets, daily range): BP systolic 134–202; BP diastolic 76–133; PULSE 64–124; RESP 18–20; TEMP 35.9–37.2; O2SAT 96–99; BMI 31.2; BMI 29.9
[2024-07-14] MEDS: cloNIDine HCl 0.1 MG Tablet PO ×2 (11:57→17:15)
[2024-07-14] MEDS: Ondansetron ODT 4 MG Tablet PO (11:57)
--- NOTE | 2024-07-14 12:06 | EX.ED.DYSGE1 ---
HPI <TYLER Gooden - Last Filed: 07/14/24 13:43> History of Present Illness Chief Complaint: Substance Abuse Narrative Narrative: Patient is a 59-year-old female with history of lupus who does not see a primary care physician. Patient states that she is here for detox, patient states that she is currently try to detox from fentanyl. Patient states that she snorts 2 g of fentanyl per day. She states that she has been intermittently trying to get clean. She is never actually completed a treatment program. Patient states that over the last several weeks, she feels that she is too old for this and would like to be clean. She does smoke 1 pack/day, denies any alcohol or marijuana use. Patient states she started using fentanyl in 2015 after multiple back surgeries, she was cut off in 2014 from her Percocet and relies on fentanyl for pain relief. She denies any suicidal homicidal ideation. Patient states today, she feels shaky, body aches, nausea. Patient's last fentanyl was 2 days ago at 8 PM. [facility] <TYLER Gooden - Last Filed: 07/14/24 13:43> [facility] Medical History (Updated 07/14/24 @ 14:[address] Zeus Whelan, DO) Substance abuse Chronic pain Seizures Insomnia Anxiety Neuropathy Opiate dependence Opiate dependence Ophthalmic herpes zoster infection Agoraphobia Fusion of lumbar spine Smoker Hypertension Fibromyalgia Lupus Hypertension Fibromyalgia Alcohol abuse SLE (systemic lupus erythematosus) Home Medications ?Medication ?Instructions ?Recorded ?Last Taken ?Type promethazine 25 mg tablet 25 mg PO Q6H PRN PRN Nausea #16 09/06/22 Unknown Rx TABLETS clonidine HCl 0.1 mg tablet 0.1 mg PO TID Check with primary 09/08/22 09/08/22 History doctor diphenhydramine HCl 25 mg capsule 25 mg PO QHS PRN insominia #30 caps 09/09/22 Unknown Rx Allergy/AdvReac Type Severity Reaction Status Date / Time hydrocodone bitartrate (From Allergy Rash Verified 07/14/24 10:54 Vicodin) nortriptyline HCl (From Allergy Rash Verified 07/14/24 10:54 Pamelor) gabapentin AdvReac Other Verified 07/14/24 10:54 prednisone AdvReac Other Verified 07/14/24 10:54 pregabalin (From Lyrica) AdvReac Other Verified 07/14/24 10:54 zolpidem tartrate (From AdvReac Other Verified 07/14/24 10:54 Ambien) Family History Other Cancer Leukemia Surgical History History of back surgery H/O: hysterectomy Social History household members: significant other Smoking Status: Current every day smoker tobacco type: cigarettes alcohol intake: former substance use type: former substance user ROS <TYLER Gooden - Last Filed: 07/14/24 13:43> ROS ED ROS Narrative Constitutional: Negative for fever, chills, weight loss, weakness Eyes: Negative for vision loss, vision change, double vision ENT: Negative for any sore throat, ear pain, congestion Cardiovascular: Negative for any chest pain, tightness, palpitations Respiratory: Negative for any cough, sputum production, hemoptysis, dyspnea, dyspnea on exertion, orthopnea Gastrointestinal: Negative for any abdominal pain, diarrhea, constipation, blood in stool, blood in vomit. Positive for nausea and vomiting : Negative for any urinary frequency, dysuria, retention, blood in urine Muscle skeletal: Negative for any neck pain, back pain. Positive for generalized myalgias Neurological: Negative for any headache, syncope, dizziness Skin: Negative for any rashes, itching, abrasions, lacerations Psychiatric: Negative for any depression, suicidal ideation, homicidal ideation. Positive for anxiety, increased stress level Hematologic: Negative for any excessive bruising, easy bleeding EXAM <TYLER Gooden - Last Filed: 07/14/24 13:43> Physical Exam Narrative Exam Narrative: Vital signs reviewed. Patient is alert and orient x 4, patient does appear to be anxious, constant moving around in the bed. HEET: Head normocephalic atraumatic, TMs clear bilaterally. Posterior pharynx is clear, moist mucous membranes. Nares clear bilaterally. Neck: Supple with no lymphadenopathy or tenderness. No signs of meningismus. Cardiac: Tachycardic rate no murmurs gallops or rubs, equal peripheral pulses bilaterally. Respiratory: Diminished lung sounds at the lower lobes, expiratory wheezes. No chest tenderness. Abdomen: Soft, nontender, nondistended. No abdominal bruit or pulsatile masses. No hepatosplenomegaly Extremities: No peripheral edema, no signs of gross trauma or deformity. Active full range of motion of all extremities. Neuro: Cranial nerves II through XII intact, no focal neurological deficits. Skin: Clean dry and intact with no rash, purpura, petechiae, vesicles or pustules. Backs/flank: No CVA tenderness, no midline spinal tenderness, no deformity. Psych: Normal mood and affect. No SI, HI or acute psychosis. Const Vital Signs: 07/14/24 10:54 07/14/24 12:54 Temperature 96.6 F L 98.9 F Temperature Source Oral Oral Pulse Rate 124 H 64 Respiratory Rate 20 H 18 Blood Pressure 193/133 H 141/78 H Blood Pressure Mean 153 99 Pulse Ox 96 98 Oxygen Delivery Method Room Air Room Air <Dr. More Barth DO - Last Filed: 07/16/24 12:42> Physical Exam Const Vital Signs: 07/14/24 10:54 07/14/24 12:54 Temperature 96.6 F L 98.9 F Temperature Source Oral Oral Pulse Rate 124 H 64 Respiratory Rate 20 H 18 Blood Pressure 193/133 H 141/78 H Blood Pressure Mean 153 99 Pulse Ox 96 98 Oxygen Delivery Method Room Air Room Air [facility] <TYLER Gooden - Last Filed: 07/14/24 13:43> [facility] Lab Data Labs: Laboratory Results - last 24 hr 07/14/24 07/14/24 07/14/24 12:07 12:07 12:15 WBC Cancelled Corrected WBC Cancelled RBC Cancelled Hgb Cancelled Hct Cancelled MCV Cancelled MCH Cancelled MCHC Cancelled RDW Std Deviation Cancelled RDW Coeff of Anatoliy Cancelled Plt Count Cancelled MPV Cancelled Immature Gran % (Auto) Cancelled Neut % (Auto) Cancelled Lymph % (Auto) Cancelled [place] % (Auto) Cancelled Eos % (Auto) Cancelled Baso % (Auto) Cancelled Absolute Neuts (auto) Cancelled Absolute Lymphs (auto) Cancelled Total Counted Cancelled Neutrophils % (Manual) Cancelled Band Neutrophils % Cancelled Lymphocytes % (Manual) Cancelled Monocytes % (Manual) Cancelled Eosinophils % (Manual) Cancelled Basophils % (Manual) Cancelled Metamyelocytes % Cancelled Myelocytes % Cancelled Promyelocytes % Cancelled Blast Cells % Cancelled Plasma Cell % (Manual) Cancelled Other Cells % Cancelled Nucleated RBC % Cancelled Nucleated RBCs/100 WBC Cancelled Differential Comment Cancelled Diff Path Review Cancelled Hypersegmented Neuts Cancelled Atypical Lymphocytes Cancelled Reactive Lymphocytes Cancelled Smudge Cells Cancelled Toxic Granulation Cancelled Toxic Vacuolation Cancelled Dohle Bodies Cancelled Mariah Rods Cancelled Platelet Estimate Cancelled Plt Morphology Comment Cancelled RBC Morphology Cancelled Cancelled Polychromasia Cancelled Hypochromasia Cancelled Basophilic Stippling Cancelled Anisocytosis Cancelled Microcytosis Cancelled Macrocytosis Cancelled Spherocytes Cancelled Sickle Cells Cancelled Target Cells Cancelled Tear Drop Cells Cancelled Ovalocytes Cancelled Stomatocytes Cancelled Del Cid-[place] Bodies Cancelled [place] Cells Cancelled Bite Cells Cancelled Crenated Cell Cancelled Acanthocytes (Spur) Cancelled Rouleaux Cancelled Schistocytes Cancelled Sodium Cancelled Potassium Cancelled Chloride Cancelled Carbon Dioxide Cancelled Anion Gap Cancelled BUN Cancelled Creatinine Cancelled Estim Creat Clear Calc Cancelled Est GFR (MDRD) Af Amer Cancelled Est GFR (MDRD) Non-Af Cancelled BUN/Creatinine Ratio Cancelled Glucose Cancelled Calcium Cancelled Urine Opiates Screen POSITIVE H Urine Methadone Screen NEGATIVE Ur Barbiturates Screen NEGATIVE Ur Phencyclidine Scrn NEGATIVE Ur Amphetamines Screen POSITIVE H MDMA (Ecstasy) Screen POSITIVE H U Benzodiazepines Scrn POSITIVE H Urine Cocaine Screen NEGATIVE U Cannabinoids Screen NEGATIVE Ur Drug Screen Comment Ethyl Alcohol Cancelled 07/14/24 12:53 WBC 16.2 H Corrected WBC RBC 4.93 Hgb 15.0 Hct 43.3 MCV 87.8 MCH 30.4 MCHC 34.6 RDW Std Deviation 42.5 RDW Coeff of Anatoliy 13.2 Plt Count 478 H MPV 10.3 Immature Gran % (Auto) 0.600 Neut % (Auto) 84.8 H Lymph % (Auto) 8.5 L [place] % (Auto) 5.3 Eos % (Auto) 0.3 Baso % (Auto) 0.5 Absolute Neuts (auto) 13.8 H Absolute Lymphs (auto) 1.38 Total Counted Neutrophils % (Manual) Band Neutrophils % Lymphocytes % (Manual) Monocytes % (Manual) Eosinophils % (Manual) Basophils % (Manual) Metamyelocytes % Myelocytes % Promyelocytes % Blast Cells % Plasma Cell % (Manual) Other Cells % Nucleated RBC % 0 Nucleated RBCs/100 WBC Differential Comment Diff Path Review Hypersegmented Neuts Atypical Lymphocytes Reactive Lymphocytes Smudge Cells Toxic Granulation Toxic Vacuolation Dohle Bodies Mariah Rods Platelet Estimate Plt Morphology Comment RBC Morphology Polychromasia Hypochromasia Basophilic Stippling Anisocytosis Microcytosis Macrocytosis Spherocytes Sickle Cells Target Cells Tear Drop Cells Ovalocytes Stomatocytes Del Cid-[place] Bodies Eliu Cells Bite Cells Crenated Cell Acanthocytes (Spur) Rouleaux Schistocytes Sodium 133 L Potassium 3.3 L Chloride 98 Carbon Dioxide 23.0 Anion Gap 12 BUN 24 H Creatinine 1.07 H Estim Creat Clear Calc 53.92 Est GFR (MDRD) Af Amer 67 Est GFR (MDRD) Non-Af 56 L BUN/Creatinine Ratio 22.4 H Glucose 137 H Calcium 9.5 Urine Opiates Screen Urine Methadone Screen Ur Barbiturates Screen Ur Phencyclidine Scrn Ur Amphetamines Screen MDMA (Ecstasy) Screen U Benzodiazepines Scrn Urine Cocaine Screen U Cannabinoids Screen Ur Drug Screen Comment Ethyl Alcohol < 3.0 Treatment and Re-Evaluation :: Differential diagnosis includes however is not limited to: Opiate withdrawal, anxiety, depression, suicidal ideation, polypharmacy withdrawal Patient on my initial evaluation did look anxious, she was rolling around the bed, complaining of pain. Patient presents to the emergency department for wanting detox from fentanyl. States she starts 2 g of fentanyl daily. I did have the patient reach out to talk with social work, the patient states that she does prefer to be admitted into detox inpatient. Patient's CBC does show leukocytosis white blood count 16.2, this is likely reactive. Platelet counts 478, patient's chemistries show a sodium 133, potassium of 3.3 this is baseline. Creatinine 1.07 again baseline. Patient's toxicology was positive for opiates, amphetamines, MDMA, and benzodiazepines. At this time, I did speak to the admitting physician. He will admit the patient. Patient did improve with clonidine, Zofran. I did redosed the patient with Reglan for his nausea. Patient stable for admission. <Dr. More Barth, DO - Last Filed: 07/16/24 12:42> [facility] Lab Data Attestation: I reviewed the patient's lab results. Labs: Laboratory Results - last 24 hr 07/14/24 07/14/24 07/14/24 12:07 12:07 12:15 WBC Cancelled Corrected WBC Cancelled RBC Cancelled Hgb Cancelled Hct Cancelled MCV Cancelled MCH Cancelled MCHC Cancelled RDW Std Deviation Cancelled RDW Coeff of Anatoliy Cancelled Plt Count Cancelled MPV Cancelled Immature Gran % (Auto) Cancelled Neut % (Auto) Cancelled Lymph % (Auto) Cancelled [place] % (Auto) Cancelled Eos % (Auto) Cancelled Baso % (Auto) Cancelled Absolute Neuts (auto) Cancelled Absolute Lymphs (auto) Cancelled Total Counted Cancelled Neutrophils % (Manual) Cancelled Band Neutrophils % Cancelled Lymphocytes % (Manual) Cancelled Monocytes % (Manual) Cancelled Eosinophils % (Manual) Cancelled Basophils % (Manual) Cancelled Metamyelocytes % Cancelled Myelocytes % Cancelled Promyelocytes % Cancelled Blast Cells % Cancelled Plasma Cell % (Manual) Cancelled Other Cells % Cancelled Nucleated RBC % Cancelled Nucleated RBCs/100 WBC Cancelled Differential Comment Cancelled Diff Path Review Cancelled Hypersegmented Neuts Cancelled Atypical Lymphocytes Cancelled Reactive Lymphocytes Cancelled Smudge Cells Cancelled Toxic Granulation Cancelled Toxic Vacuolation Cancelled Dohle Bodies Cancelled Mariah Rods Cancelled Platelet Estimate Cancelled Plt Morphology Comment Cancelled RBC Morphology Cancelled Cancelled Polychromasia Cancelled Hypochromasia Cancelled Basophilic Stippling Cancelled Anisocytosis Cancelled Microcytosis Cancelled Macrocytosis Cancelled Spherocytes Cancelled Sickle Cells Cancelled Target Cells Cancelled Tear Drop Cells Cancelled Ovalocytes Cancelled Stomatocytes Cancelled Del Cid-[place] Bodies Cancelled Eliu Cells Cancelled Bite Cells Cancelled Crenated Cell Cancelled Acanthocytes (Spur) Cancelled Rouleaux Cancelled Schistocytes Cancelled Sodium Cancelled Potassium Cancelled Chloride Cancelled Carbon Dioxide Cancelled Anion Gap Cancelled BUN Cancelled Creatinine Cancelled Estim Creat Clear Calc Cancelled Est GFR (MDRD) Af Amer Cancelled Est GFR (MDRD) Non-Af Cancelled BUN/Creatinine Ratio Cancelled Glucose Cancelled Calcium Cancelled Urine Opiates Screen POSITIVE H Urine Methadone Screen NEGATIVE Ur Barbiturates Screen NEGATIVE Ur Phencyclidine Scrn NEGATIVE Ur Amphetamines Screen POSITIVE H MDMA (Ecstasy) Screen POSITIVE H U Benzodiazepines Scrn POSITIVE H Urine Cocaine Screen NEGATIVE U Cannabinoids Screen NEGATIVE Ur Drug Screen Comment Ethyl Alcohol Cancelled 07/14/24 12:53 WBC 16.2 H Corrected WBC RBC 4.93 Hgb 15.0 Hct 43.3 MCV 87.8 MCH 30.4 MCHC 34.6 RDW Std Deviation 42.5 RDW Coeff of Anatoliy 13.2 Plt Count 478 H MPV 10.3 Immature Gran % (Auto) 0.600 Neut % (Auto) 84.8 H Lymph % (Auto) 8.5 L [place] % (Auto) 5.3 Eos % (Auto) 0.3 Baso % (Auto) 0.5 Absolute Neuts (auto) 13.8 H Absolute Lymphs (auto) 1.38 Total Counted Neutrophils % (Manual) Band Neutrophils % Lymphocytes % (Manual) Monocytes % (Manual) Eosinophils % (Manual) Basophils % (Manual) Metamyelocytes % Myelocytes % Promyelocytes % Blast Cells % Plasma Cell % (Manual) Other Cells % Nucleated RBC % 0 Nucleated RBCs/100 WBC Differential Comment Diff Path Review Hypersegmented Neuts Atypical Lymphocytes Reactive Lymphocytes Smudge Cells Toxic Granulation Toxic Vacuolation Dohle Bodies Mariah Rods Platelet Estimate Plt Morphology Comment RBC Morphology Polychromasia Hypochromasia Basophilic Stippling Anisocytosis Microcytosis Macrocytosis Spherocytes Sickle Cells Target Cells Tear Drop Cells Ovalocytes Stomatocytes Del Cid-[place] Bodies Eliu Cells Bite Cells Crenated Cell Acanthocytes (Spur) Rouleaux Schistocytes Sodium 133 L Potassium 3.3 L Chloride 98 Carbon Dioxide 23.0 Anion Gap 12 BUN 24 H Creatinine 1.07 H Estim Creat Clear Calc 53.92 Est GFR (MDRD) Af Amer 67 Est GFR (MDRD) Non-Af 56 L BUN/Creatinine Ratio 22.4 H Glucose 137 H Calcium 9.5 Urine Opiates Screen Urine Methadone Screen Ur Barbiturates Screen Ur Phencyclidine Scrn Ur Amphetamines Screen MDMA (Ecstasy) Screen U Benzodiazepines Scrn Urine Cocaine Screen U Cannabinoids Screen Ur Drug Screen Comment Ethyl Alcohol < 3.0 Management Discussion w/another healthcare provider: Hospitalist Treatment and Re-Evaluation :: Differential diagnosis includes however is not limited to: Opiate withdrawal, anxiety, depression, suicidal ideation, polypharmacy withdrawal Patient on my initial evaluation did look anxious, she was rolling around the bed, complaining of pain. Patient presents to the emergency department for wanting detox from fentanyl. States she starts 2 g of fentanyl daily. I did have the patient reach out to talk with social work, the patient states that she does prefer to be admitted into detox inpatient. Patient's CBC does show leukocytosis white blood count 16.2, this is likely reactive. Platelet counts 478, patient's chemistries show a sodium 133, potassium of 3.3 this is baseline. Creatinine 1.07 again baseline. Patient's toxicology was positive for opiates, amphetamines, MDMA, and benzodiazepines. At this time, I did speak to the admitting physician. He will admit the patient. Patient did improve with clonidine, Zofran. I did redosed the patient with Reglan for his nausea. Patient stable for admission. I have personally performed a face to face assessment of the patient and have reviewed the LAVERN Note. I performed a substantive portion of the visit including all aspects of the following. My buchanan findings include: History is patient is a 59-year-old female with extensive history of chronic back pain and opioid dependency/abuse presenting to the ER today for request of opioid detox. Patient states she snorts fentanyl up to 2 g a day. She last used 2 days ago at 8 PM. Does report history of lupus. Does feel like she is withdrawing and is complaining diffuse abdominal pain, nausea and vomiting and myalgias. Patient given clonidine and Zofran for withdrawal symptoms in the emergency room she is hypertensive and quite nauseous. She receives medical screening labs for addiction medicine admission and she does have a leukocytosis which I suspect is reactive from her vomiting. She is not reporting any fever or other infectious symptoms. Remainder of lab work is unremarkable except for talk screen which is largely positive. Patient accepted to hospital service for admission for inpatient detox. Other additions or changes: [None] Discharge Plan Disposition Disposition: [facility] Discharge Date/Time: 07/14/24 14:48
[2024-07-14 12:50] LABS: Amphetamine Urine VISTA POSITIVE (<1000 ng/mL); Barbiturate Urine VISTA NEGATIVE (< 200 ng/mL); Benzodiazepine Urine VISTA POSITIVE (< 200 ng/mL); Cocaine Urine VISTA NEGATIVE (< 300 ng/mL); Ecstacy Urine VISTA POSITIVE (< 500 ng/mL); Methadone Urine VISTA NEGATIVE (< 300 ng/mL); PCP Urine VISTA NEGATIVE (< 25 ng/mL); THC Urine VISTA NEGATIVE (< 50 ng/mL); Vista UDS pH Range 5
[2024-07-14 13:17] LABS: Absolute Lymphocyte Count 1.38 X10^3/uL (0.83-4.51); Absolute Neutrophil Count 13.8 X10^3/uL (2.0-7.7); Basophil# 0.08 X10^3/uL; Basophil% 0.5 % (0-1); Eosinophil# 0.05 X10^3/uL; Eosinophils% 0.3 % (0-5); Hematocrit 43.3 % (37-47); Lymphocyte # 1.38 X10^3/ul (0.83-4.51); Lymphocyte % 8.5 % (19-41); Mean Corp Hgb Conc 34.6 g/dL (32-36); Mean Corpuscular Hgb 30.4 pg (27.0-32.0); Mean Corpuscular Volume 87.8 fL (81-99); Mean Platelet Vol. 10.3 fl (6.2-12.0); Monocyte# 0.86 X10^3/uL; Monocyte% 5.3 % (0-10); NRBC Flagged by Analyzer 0 % (0-5); Neutrophil # 13.75 X10^3/uL (2.7-7.7); Neutrophil % 84.8 % (47-70); Platelet Count 478 K/mm3 (150-450); RBC Distribution Width CV 13.2 % (11.6-14.6); RBC Distribution Width SD 42.5 fl (35.1-43.9); Red Blood Count 4.93 M/mm3 (4.2-5.4); White Blood Count 16.2 K/mm3 (4.4-11.0)
[2024-07-14 13:24] LABS: Anion Gap 12 (5-15); BUN 24 mg/dL (7-18); BUN/Creat Ratio 22.4 RATIO (10-20); Calcium,Total 9.5 mg/dL (8.5-10.1); Chloride 98 mmol/L (98-107); Creatinine, Serum 1.07 mg/dL (0.55-1.02); EST Glomerular Filtration Rate 56 mL/min (>60); Est Glom Filt Rate - Afr Amer 67 mL/min (>60); Estimated Creatinine Clearance 53.92 ml/min; Glucose 137 mg/dL (74-106); Potassium 3.3 mmol/L (3.5-5.1); Sodium Level 133 mmol/L (136-145)
[2024-07-14 13:28] LABS: Alcohol, Blood (Medical)-Serum < 3.0 mg/dL
[2024-07-14] MEDS: Metoclopramide 10 MG Tablet PO (13:35)
--- NOTE | 2024-07-14 13:35 | PCM.HP.STD ---
HPI - General General Date of Admission: 07/14/24 Date of Service: 07/14/24 Chief Complaint: Opiate withdrawal HPI Narrative EMILY DELACRUZ, is a 59 F who presented to [facility] ED on 07/14/2024 with opiate withdrawal and requesting detoxification. Patient snorts 2 g of fentanyl per day. Last use was on the night of 07/12. Presented with feeling shaky, body aches and nausea. Has been using fentanyl since 2015 after multiple back surgeries, states she was cut off from Percocet and has relied on fentanyl to help with her back pain. She also smokes 1 pack of cigarettes per day. Denies any alcohol or marijuana use. States she wants to get clean now because she is too old for this. She was hospitalized here and 2022 for similar presentation but it appears she went home on discharge and is unclear if she followed up with 180. On arrival to the ED she was tachycardic and hypertensive, improved with as needed medications per ED staff. Hospitalist was then contacted for admission. I saw the patient at bedside in the ED. Patient was anxious appearing but was answering questions appropriately for me. Stated that the medications from earlier were helpful but she continues to feel nauseous and does have lower back pain. She notes that the pain is chronic for her. States she would be okay with using Subutex for detox. She is agreeable to meet with addiction medicine here but states she does not have much interest in following up with any outpatient treatment after discharge. No other acute concerns this time. [facility] Medical History (Updated 07/14/24 @ 14:[address] Zeus Whelan, DO) Substance abuse Chronic pain Seizures Insomnia Anxiety Neuropathy Opiate dependence Opiate dependence Ophthalmic herpes zoster infection Agoraphobia Fusion of lumbar spine Smoker Hypertension Fibromyalgia Lupus Hypertension Fibromyalgia Alcohol abuse SLE (systemic lupus erythematosus) Home Medications ?Medication ?Instructions ?Recorded ?Last Taken ?Type promethazine 25 mg tablet 25 mg PO Q6H PRN PRN Nausea #16 09/06/22 Unknown Rx TABLETS clonidine HCl 0.1 mg tablet 0.1 mg PO TID Check with primary 09/08/22 09/08/22 History doctor diphenhydramine HCl 25 mg capsule 25 mg PO QHS PRN insominia #30 caps 09/09/22 Unknown Rx Allergy/AdvReac Type Severity Reaction Status Date / Time hydrocodone bitartrate (From Allergy Rash Verified 07/14/24 10:54 Vicodin) nortriptyline HCl (From Allergy Rash Verified 07/14/24 10:54 Pamelor) gabapentin AdvReac Other Verified 07/14/24 10:54 prednisone AdvReac Other Verified 07/14/24 10:54 pregabalin (From Lyrica) AdvReac Other Verified 07/14/24 10:54 zolpidem tartrate (From AdvReac Other Verified 07/14/24 10:54 Ambien) Family History Other Cancer Leukemia Surgical History History of back surgery H/O: hysterectomy Social History household members: significant other Smoking Status: Current every day smoker tobacco type: cigarettes alcohol intake: former substance use type: former substance user ROS Constitutional Constitutional: Reports fatigue and malaise; Denies chills or fever(s) Eyes Eyes: Denies change in vision Cardiovascular Cardiovascular: Denies chest pain Respiratory/Chest Respiratory/Chest: Denies cough or shortness of breath at rest Gastrointestinal Gastrointestinal: Reports abdominal pain and nausea; Denies constipation, diarrhea or vomiting Musculoskeletal Musculoskeletal: Reports myalgias; Denies arthralgias Neurologic Neurologic: Denies dizziness or headache(s) Psychiatric Psychiatric: Reports anxiety Vital Signs Vital Signs Vital Signs: 07/14/24 10:54 07/14/24 12:54 Temperature 96.6 F L 98.9 F Temperature Source Oral Oral Pulse Rate 124 H 64 Respiratory Rate 20 H 18 Blood Pressure 193/133 H 141/78 H Blood Pressure Mean 153 99 Pulse Ox 96 98 Oxygen Delivery Method Room Air Room Air Weight Weight: 77.564 kg Body Mass Index (BMI) 31.2 Physical Exam Const alert and oriented x3 Constitutional Narrative: Upper middle-aged female, appears older than stated age, class I obesity, anxious appearing and somewhat uncomfortable appearing due to ongoing nausea but otherwise sitting back in bed and answering questions appropriately for me. General Appearance: cooperative HEENT normocephalic, head/scalp atraumatic, hearing grossly normal bilaterally, nasal mucous membranes and turbinates normal and moist oral mucous membranes Eyes PERRL, EOMs intact bilaterally and conjunctivae normal Neck full ROM Chest inspection of chest normal Resp normal respiratory effort, normal air movement, no use of accessory muscles and clear to auscultation bilaterally Cardio regular rate, regular rhythm, no murmurs and peripheral pulses 2+ throughout GI normal to inspection, nondistended, normoactive bowel sounds, soft to palpation, non-tender and non-distended Back/Spine Back/Spine Narrative: Mild tenderness to palpation diffusely in low back. No point tenderness noted. Extremity normal to inspection, full ROM and no pedal edema Skin no rashes or lesions noted Neuro moves all extremities and no focal motor deficits Speech: speech normal Psych Mood & Affect: anxious Results Lab / Micro Data 07/14/24 12:53 07/14/24 12:53 Labs: Laboratory Results - last 24 hr 07/14/24 12:07: WBC Cancelled, Corrected WBC Cancelled, RBC Cancelled, Hgb Cancelled, Hct Cancelled, MCV Cancelled, MCH Cancelled, MCHC Cancelled, RDW Std Deviation Cancelled, RDW Coeff of Anatoliy Cancelled, Plt Count Cancelled, MPV Cancelled, Immature Gran % (Auto) Cancelled, Neut % (Auto) Cancelled, Lymph % (Auto) Cancelled, Christian % (Auto) Cancelled, Eos % (Auto) Cancelled, Baso % (Auto) Cancelled, Absolute Neuts (auto) Cancelled, Absolute Lymphs (auto) Cancelled, Total Counted Cancelled, Neutrophils % (Manual) Cancelled, Band Neutrophils % Cancelled, Lymphocytes % (Manual) Cancelled, Monocytes % (Manual) Cancelled, Eosinophils % (Manual) Cancelled, Basophils % (Manual) Cancelled, Metamyelocytes % Cancelled, Myelocytes % Cancelled, Promyelocytes % Cancelled, Blast Cells % Cancelled, Plasma Cell % (Manual) Cancelled, Other Cells % Cancelled, Nucleated RBC % Cancelled, Nucleated RBCs/100 WBC Cancelled, Differential Comment Cancelled, Diff Path Review Cancelled, Hypersegmented Neuts Cancelled, Atypical Lymphocytes Cancelled, Reactive Lymphocytes Cancelled, Smudge Cells Cancelled, Toxic Granulation Cancelled, Toxic Vacuolation Cancelled, Dohle Bodies Cancelled, Mariah Rods Cancelled, Platelet Estimate Cancelled, Plt Morphology Comment Cancelled, RBC Morphology Cancelled 07/14/24 12:07: RBC Morphology Cancelled, Polychromasia Cancelled, Hypochromasia Cancelled, Basophilic Stippling Cancelled, Anisocytosis Cancelled, Microcytosis Cancelled, Macrocytosis Cancelled, Spherocytes Cancelled, Sickle Cells Cancelled, Target Cells Cancelled, Tear Drop Cells Cancelled, Ovalocytes Cancelled, Stomatocytes Cancelled, Del Cid-[place] Bodies Cancelled, [place] Cells Cancelled, Bite Cells Cancelled, Crenated Cell Cancelled, Acanthocytes (Spur) Cancelled, Rouleaux Cancelled, Schistocytes Cancelled, Sodium Cancelled, Potassium Cancelled, Chloride Cancelled, Carbon Dioxide Cancelled, Anion Gap Cancelled, BUN Cancelled, Creatinine Cancelled, Estim Creat Clear Calc Cancelled, Est GFR (MDRD) Af Amer Cancelled, Est GFR (MDRD) Non-Af Cancelled, BUN/Creatinine Ratio Cancelled, Glucose Cancelled, Calcium Cancelled, Ethyl Alcohol Cancelled 07/14/24 12:15: Urine Opiates Screen POSITIVE H, Urine Methadone Screen NEGATIVE, Ur Barbiturates Screen NEGATIVE, Ur Phencyclidine Scrn NEGATIVE, Ur Amphetamines Screen POSITIVE H, MDMA (Ecstasy) Screen POSITIVE H, U Benzodiazepines Scrn POSITIVE H, Urine Cocaine Screen NEGATIVE, U Cannabinoids Screen NEGATIVE, Ur Drug Screen Comment 07/14/24 12:53: WBC 16.2 H, RBC 4.93, Hgb 15.0, Hct 43.3, MCV 87.8, MCH 30.4, MCHC 34.6, RDW Std Deviation 42.5, RDW Coeff of Anatoliy 13.2, Plt Count 478 H, MPV 10.3, Immature Gran % (Auto) 0.600, Neut % (Auto) 84.8 H, Lymph % (Auto) 8.5 L, Christian % (Auto) 5.3, Eos % (Auto) 0.3, Baso % (Auto) 0.5, Absolute Neuts (auto) 13.8 H, Absolute Lymphs (auto) 1.38, Nucleated RBC % 0, Sodium 133 L, Potassium 3.3 L, Chloride 98, Carbon Dioxide 23.0, Anion Gap 12, BUN 24 H, Creatinine 1.07 H, Estim Creat Clear Calc 53.92, Est GFR (MDRD) Af Amer 67, Est GFR (MDRD) Non-Af 56 L, BUN/Creatinine Ratio 22.4 H, Glucose 137 H, Calcium 9.5, Ethyl Alcohol < 3.0 Assessment & Plan Assessment/Plan (1) Opiate abuse, continuous: (2) Polysubstance abuse: (3) Desire for detoxification: PLAN: Plan Patient is a 59-year-old female who presented to [facility] ED on 07/14/2024 requesting opiate detoxification. 1. Opiate abuse with withdrawal and desire for detoxification, polysubstance abuse ? Admit under inpatient status to [facility]. Addiction medicine consulted. Starting 2 g of fentanyl per day, last use on 07/12. UDS was positive for opiates, amphetamines, MDMA and benzos. She denies any other drug use so unclear if she is frequently using benzos or not. Will treat with Subutex taper and other as needed medications per opiate withdrawal order set. CIWA protocol without medications also ordered. 2. Mild hyperkalemia ? Potassium 3.3 on admit. Mag and Phos ordered. Replete as needed. 3. Chronic back pain ? Patient reports previous back surgeries 10 or so years ago with chronic back pain since then, has been using fentanyl for this. Will utilize conservative measures here for her pain. 4. Leukocytosis ? WBC count 16 on admit. Noninfectious appearing and afebrile, low concern for active infection. No need for antibiotics at this time. Follow-up a.m. CBC. 5. History of hypertension ? Reportedly was on metoprolol in the past but has not been on now for at least a few years. BP elevated to the 190s over 130s on arrival to the ED but improved to the 140s over 70s with medication for withdrawal. Monitor, no need to start antihypertensive therapy at this point. 6. Insomnia ? Chronic. Patient notes that she usually only sleeps a few hours per night and will sometimes go days without sleeping. Has been on benzos in the past which apparently helped but they were discontinued. Has had bizarre behavior with zolpidem. She cannot tolerate trazodone for unclear reason. Will take Benadryl at nights sometimes with mild improvement. Will order p.o. Benadryl at night and melatonin for her. 7. Tobacco abuse ? Current smoker. Nicotine replacement therapy ordered per patient request. Discussed cessation. DVT prophylaxis: Lovenox CODE STATUS: Full code, verified Expected disposition: Home, 2 to 3 days Total clinical time spent by myself addressing the patient's medical issues, reviewing all the data, and collaborating with patient's care team: 55 minutes. Charges/Coding Visit Charges Inpatient E&M: 58369 Init Hosp L2
--- NOTE | 2024-07-14 13:44 | NURSING ---
MED SURG JUS FENTANYL DETOX, OPIATE WITHDRAWAL
--- NOTE | 2024-07-14 13:59 | CM.ED ---
Social work Reason for referral: substance use Referral source: Ayan LEON, Navin Alejandro NP, Dr. Barth. This SW was approached by Ayan LEON, Navin Alejandro NP, and Dr. Barth separately asking to speak with patient regarding potential use of outpatient resources rather than needing to enter [facility]. This SW entered patient's room, introducing self and role at [facility]. Patient accepted SW visit and patient was lying in bed, covered with a blanket. Patient was observed shaking and patient stated being in withdrawal. Patient reported fentanyl use beginning after doctors stopped patient's pain medication in 2016-. Patient stated having lupus and back surgeries, resulting in need for pain medication. Patient stated going to pain management doctors in the past, but stopping because none of them help me. Patient stated taking Xanax for 30 years and patient reported not being able to find a doctor who will prescribe patient Xanax anymore. Patient said, if someone could just give me Xanax, I wouldn't need to use fentanyl. Patient reported using heroin in the past for a couple years when experiencing a tragedy in life. Patient stated trying to detox for a year, attempting methadone, but patient reports that being a disaster. Patient reported last using fentanyl on Wednesday07/12/24 evening and being surprised at how patient is getting so sick, so fast now. Patient reported not being agreeable to outpatient [facility] treatment and not being agreeable to outpatient counseling of any kind. Patient expressed being agoraphobic and having anxiety. Patient stating trying Prozac, Lexapro, and Wellbutrin in the past, but patient stated not liking how those medications made patient feel. Patient stated only having the support of patient's significant other, [place], who patient has been with since 2011. Patient expressed a desire for detox via the [facility] program and patient stated intent to go home and keep using fentanyl if patient was unable to enter the [facility] program. Patient stated being nauseous and requested this SW leave the room. Patient denied further needs at this time, but requested this SW get a doctor who can actually help me. Ayan LEON, Dr. Barth and Navin Alejandro NP updated. Samra Taylor, [employer], GRAPHICS SPECIALIST
[2024-07-14 15:29] LABS: Magnesium 1.8 mg/dL (1.6-2.6); Phosphorus 2.2 mg/dL (2.5-4.9)
[2024-07-14] MEDS: Methocarbamol 750 MG Tablet PO ×2 (17:15→23:53)
[2024-07-14] MEDS: hydrOXYzine PAM 25 MG Capsule 50 MG PO ×2 (17:15→23:53)
[2024-07-14] MEDS: Ondansetron 8 MG Tablet PO (17:15)
[2024-07-14] MEDS: Acetaminophen 325 MG Tablet 650 MG PO ×2 (17:16→23:53)
[2024-07-14] MEDS: Buprenorphine HCl 2 MG TAB.SUBL 4 MG SL (19:52)
[2024-07-14] MEDS: amLODIPine 10 MG Tablet PO (20:28)
[2024-07-14] MEDS: hydrALAZINE 20 MG/ML Vial 10 MG IV (22:39)
[2024-07-14] MEDS: LORazepam 2 MG/ML Syringe IV (22:40)
[2024-07-14] MEDS: 0.9% Saline Lock 10 ML Syringe IV (23:48)
[2024-07-14] MEDS: Metoprolol Tartrate 5 MG/5 ML Vial 2.5 MG IV (23:48)
[2024-07-15 00:35] VITALS: PULSE 107
[2024-07-15] MEDS: 0.9% Saline Lock 10 ML Syringe IV (04:20)
[2024-07-15] MEDS: Buprenorphine HCl 2 MG TAB.SUBL 4 MG SL (04:20)
[2024-07-15 04:24] VITALS: BP 171/82; PULSE 107
[2024-07-15] MEDS: hydrALAZINE 20 MG/ML Vial 10 MG IV (04:24)
[2024-07-15] MEDS: cloNIDine HCl 0.1 MG Tablet PO (04:24)
[2024-07-15 07:09] LABS: Hematocrit 44.7 % (37-47); Hemoglobin 14.6 g/dL (12.0-15.0); Mean Corp Hgb Conc 32.7 g/dL (32-36); Mean Corpuscular Hgb 29.7 pg (27.0-32.0); Mean Platelet Vol. 10.6 fl (6.2-12.0); Platelet Count 488 K/mm3 (150-450); RBC Distribution Width CV 13.3 % (11.6-14.6); RBC Distribution Width SD 44.8 fl (35.1-43.9); Red Blood Count 4.91 M/mm3 (4.2-5.4); White Blood Count 17.4 K/mm3 (4.4-11.0)
[2024-07-15 07:19] LABS: Scan Indicated on CBC? Y/N NO
[2024-07-15 07:23] LABS: Anion Gap 11 (5-15); BUN 30 mg/dL (7-18); BUN/Creat Ratio 32.2 RATIO (10-20); Calcium,Total 8.9 mg/dL (8.5-10.1); Chloride 98 mmol/L (98-107); Creatinine, Serum 0.93 mg/dL (0.55-1.02); EST Glomerular Filtration Rate 65 mL/min (>60); Est Glom Filt Rate - Afr Amer 79 mL/min (>60); Estimated Creatinine Clearance 60.74 ml/min; Glucose 122 mg/dL (74-106); Potassium 3.4 mmol/L (3.5-5.1); Sodium Level 132 mmol/L (136-145)
--- NOTE | 2024-07-15 07:33 | PN.HOSP_ITS ---
Reason for Visit Reason for Visit: Diagnoses Opioid abuse, uncomplicated (07/14/24) Other psychoactive substance abuse, uncomplicated (07/14/24) Objective Data Objective Data Vital Signs: Vital Signs Temp Pulse Resp BP Pulse Ox O2 Del Method 98.9 F 107 H 18 171/82 H 99 Room Air 07/14/24 14:00 07/15/24 04:24 07/14/24 14:00 07/15/24 04:24 07/14/24 14:00 07/14/24 14:41 Oxygen Delivery Method Room Air Weight: 164 lb Body Mass Index (BMI) 29.9 Intake & Output: Intake and Output for Last 24 Hours 07/13/24 07/14/24 07/15/24 23:59 23:59 23:59 Intake Total 240 / 240 Balance 240 / 240 Lab / Micro Data 07/15/24 06:25 07/15/24 06:25 Labs: Laboratory Results - last 24 hr 07/14/24 12:07: WBC Cancelled, Corrected WBC Cancelled, RBC Cancelled, Hgb Cancelled, Hct Cancelled, MCV Cancelled, MCH Cancelled, MCHC Cancelled, RDW Std Deviation Cancelled, RDW Coeff of Anatoliy Cancelled, Plt Count Cancelled, MPV Cancelled, Immature Gran % (Auto) Cancelled, Neut % (Auto) Cancelled, Lymph % (Auto) Cancelled, Kerr % (Auto) Cancelled, Eos % (Auto) Cancelled, Baso % (Auto) Cancelled, Absolute Neuts (auto) Cancelled, Absolute Lymphs (auto) Cancelled, Total Counted Cancelled, Neutrophils % (Manual) Cancelled, Band Neutrophils % Cancelled, Lymphocytes % (Manual) Cancelled, Monocytes % (Manual) Cancelled, Eosinophils % (Manual) Cancelled, Basophils % (Manual) Cancelled, Metamyelocytes % Cancelled, Myelocytes % Cancelled, Promyelocytes % Cancelled, Blast Cells % Cancelled, Plasma Cell % (Manual) Cancelled, Other Cells % Cancelled, Nucleated RBC % Cancelled, Nucleated RBCs/100 WBC Cancelled, Differential Comment Cancelled, Diff Path Review Cancelled, Hypersegmented Neuts Cancelled, Atypical Lymphocytes Cancelled, Reactive Lymphocytes Cancelled, Smudge Cells Cancelled, Toxic Granulation Cancelled, Toxic Vacuolation Cancelled, Dohle Bodies Cancelled, Mariah Rods Cancelled, Platelet Estimate Cancelled, Plt Morphology Comment Cancelled, RBC Morphology Cancelled 07/14/24 12:07: RBC Morphology Cancelled, Polychromasia Cancelled, Hypochromasia Cancelled, Basophilic Stippling Cancelled, Anisocytosis Cancelled, Microcytosis Cancelled, Macrocytosis Cancelled, Spherocytes Cancelled, Sickle Cells Cancelled, Target Cells Cancelled, Tear Drop Cells Cancelled, Ovalocytes Cancelled, Stomatocytes Cancelled, Del Cid-[place] Bodies Cancelled, [place] Cells Cancelled, Bite Cells Cancelled, Crenated Cell Cancelled, Acanthocytes (Spur) Cancelled, Rouleaux Cancelled, Schistocytes Cancelled, Sodium Cancelled, Potassium Cancelled, Chloride Cancelled, Carbon Dioxide Cancelled, Anion Gap Cancelled, BUN Cancelled, Creatinine Cancelled, Estim Creat Clear Calc Cancelled, Est GFR (MDRD) Af Amer Cancelled, Est GFR (MDRD) Non-Af Cancelled, BUN/Creatinine Ratio Cancelled, Glucose Cancelled, Calcium Cancelled, Ethyl Alcohol Cancelled 07/14/24 12:15: Urine Opiates Screen POSITIVE H, Urine Methadone Screen NEGATIVE, Ur Barbiturates Screen NEGATIVE, Ur Phencyclidine Scrn NEGATIVE, Ur Amphetamines Screen POSITIVE H, MDMA (Ecstasy) Screen POSITIVE H, U Benzodiazepines Scrn POSITIVE H, Urine Cocaine Screen NEGATIVE, U Cannabinoids Screen NEGATIVE, Ur Drug Screen Comment 07/14/24 12:53: WBC 16.2 H, RBC 4.93, Hgb 15.0, Hct 43.3, MCV 87.8, MCH 30.4, MCHC 34.6, RDW Std Deviation 42.5, RDW Coeff of Anatoliy 13.2, Plt Count 478 H, MPV 10.3, Immature Gran % (Auto) 0.600, Neut % (Auto) 84.8 H, Lymph % (Auto) 8.5 L, Kerr % (Auto) 5.3, Eos % (Auto) 0.3, Baso % (Auto) 0.5, Absolute Neuts (auto) 13.8 H, Absolute Lymphs (auto) 1.38, Nucleated RBC % 0, Sodium 133 L, Potassium 3.3 L, Chloride 98, Carbon Dioxide 23.0, Anion Gap 12, BUN 24 H, Creatinine 1.07 H, Estim Creat Clear Calc 53.92, Est GFR (MDRD) Af Amer 67, Est GFR (MDRD) Non- Af 56 L, BUN/Creatinine Ratio 22.4 H, Glucose 137 H, Calcium 9.5, Phosphorus 2.2 L, Magnesium 1.8, Ethyl Alcohol < 3.0 07/15/24 06:25: WBC 17.4 H, RBC 4.91, Hgb 14.6, Hct 44.7, MCV 91.0, MCH 29.7, M CHC 32.7 D, RDW Std Deviation 44.8 H, RDW Coeff of Anatoliy 13.3, Plt Count 488 H, MPV 10.6, Sodium 132 L, Potassium 3.4 L, Chloride 98, Carbon Dioxide 22.0, Anion Gap 11, BUN 30 H, Creatinine 0.93, Estim Creat Clear Calc 60.74, Est GFR (MDRD) Af Amer 79, Est GFR (MDRD) Non-Af 65, BUN/Creatinine Ratio 32.2 H, Glucose 122 H , Calcium 8.9 Assessment & Plan Assessment/Plan (1) Opiate abuse, continuous: (2) Polysubstance abuse: (3) Desire for detoxification: PLAN: Plan Patient is a 59-year-old female who presented to [facility] ED on 07/14/2024 requesting opiate detoxification. 1. Opiate abuse with withdrawal and desire for detoxification, polysubstance abuse ? Admit under inpatient status to [facility]. Addiction medicine consulted. Starting 2 g of fentanyl per day, last use on 07/12. UDS was positive for opiates, amphetamines, MDMA and benzos. She denies any other drug use so unclear if she is frequently using benzos or not. Will treat with Subutex taper and other as needed medications per opiate withdrawal order set. CIWA protocol without medications also ordered. 2. Mild hyperkalemia ? Potassium 3.3 on admit. Mag and Phos ordered. Replete as needed. 3. Chronic back pain ? Patient reports previous back surgeries 10 or so years ago with chronic back pain since then, has been using fentanyl for this. Will utilize conservative measures here for her pain. 4. Leukocytosis ? WBC count 16 on admit. Noninfectious appearing and afebrile, low concern for active infection. No need for antibiotics at this time. Follow-up a.m. CBC. 5. History of hypertension ? Reportedly was on metoprolol in the past but has not been on now for at least a few years. BP elevated to the 190s over 130s on arrival to the ED but improved to the 140s over 70s with medication for withdrawal. Monitor, no need to start antihypertensive therapy at this point. 6. Insomnia ? Chronic. Patient notes that she usually only sleeps a few hours per night and will sometimes go days without sleeping. Has been on benzos in the past which apparently helped but they were discontinued. Has had bizarre behavior with zolpidem. She cannot tolerate trazodone for unclear reason. Will take Benadryl at nights sometimes with mild improvement. Will order p.o. Benadryl at night and melatonin for her. 7. Tobacco abuse ? Current smoker. Nicotine replacement therapy ordered per patient request. Discussed cessation. DVT prophylaxis: Lovenox CODE STATUS: Full code, verified Expected disposition: Home, 2 to 3 days Total clinical time spent by myself addressing the patient's medical issues, reviewing all the data, and collaborating with patient's care team: 55 minutes.
--- NOTE | 2024-07-15 14:56 | DS.PCM_ITS ---
Providers Date of Admission: 07/14/24 Date of Discharge: 07/15/24 Primary Care Physician: No Primary Care Phys Reason For Visit: OPIATE DETOX Diagnosis Discharge Diagnosis (1) Opiate abuse, continuous: Status: Acute Code(s): F11.10 - Opioid abuse, uncomplicated (2) Polysubstance abuse: Status: Acute Code(s): F19.10 - Other psychoactive substance abuse, uncomplicated (3) Desire for detoxification: Status: Resolved Plan Patient is a 59-year-old female who presented to [facility] ED on 07/14/2024 requesting opiate detoxification. Patient was admitted for acute opioid withdrawal syndrome. She takes 2 g of fentanyl every day. U tox was positive for opioids amphetamine, MDMA and benzodiazepine. In the morning, the nurse called me that patient signed off AMA and left about 7:15 PM. I rushed to the floor but patient already left the hospital. Patient left the hospital without seeing me. Acute opioid withdrawal syndrome. Please see H&P for detail Medications at Discharge Home Medications promethazine 25 mg tablet 25 mg PO Q6H PRN PRN Nausea #16 TABLETS 09/06/22 clonidine HCl 0.1 mg tablet 0.1 mg PO TID Check with primary doctor 09/08/22 diphenhydramine HCl 25 mg capsule 25 mg PO QHS PRN insominia #30 caps 09/09/22 Weight / BMI Weight Weight: 164 lb Body Mass Index (BMI) 29.9 ABG / Lab / Microbiology Data 07/15/24 06:25 07/15/24 06:25 Laboratory: Laboratory Results - last 24 hr 07/14/24 12:53: Phosphorus 2.2 L, Magnesium 1.8 07/15/24 06:25: WBC 17.4 H, RBC 4.91, Hgb 14.6, Hct 44.7, MCV 91.0, MCH 29.7, M CHC 32.7 D, RDW Std Deviation 44.8 H, RDW Coeff of Anatoliy 13.3, Plt Count 488 H, MPV 10.6, Sodium 132 L, Potassium 3.4 L, Chloride 98, Carbon Dioxide 22.0, Anion Gap 11, BUN 30 H, Creatinine 0.93, Estim Creat Clear Calc 60.74, Est GFR (MDRD) Af Amer 79, Est GFR (MDRD) Non-Af 65, BUN/Creatinine Ratio 32.2 H, Glucose 122 H , Calcium 8.9 D/C Instructions DC O2, CPAP, BIPAP Needs Home O2 Discharge instructions: No Meaningful Use Info Meaningful Use Meaningful Use Diagnoses (Choose all that apply): None applicable Ischemic Stroke Statin Dosing Therapy Reference: STATIN DOSE THERAPY REFERENCE: * Patients > 75 years receive moderate or high dose statin therapy. * Patients 75 years or YOUNGER should receive HIGH intensity statin dose unless contraindicated. You will be required to document reason for non-treatment if statin daily dose does not meet guidelines. HIGH DOSE STATIN THERAPY DAILY Atorvastatin > than or = to 40 mg Rosuvastatin > than or = to 20 mg Amlodipine + Atorvastatin > than or = to 2.5/40 mg Ezetimibe + Simvastatin 10/80 mg Simvastatin 80mg Discharge Plan Admission Admit Date/Time: 07/14/24 13:35 Attending Provider: Raad Younger Primary Care Provider: Care Physician,No Primary Consulting Providers: Zeus Whelan Instructions Patient Instructions: ED Drug Abuse, ED Opiate Abuse, ED Opioid Withdrawal Discharge Orders/Prescriptions Prescriptions: No Action promethazine 25 mg tablet 25 mg PO Q6H PRN PRN (Reason: Nausea) Qty: 16 0RF clonidine HCl 0.1 mg tablet 0.1 mg PO TID diphenhydramine HCl 25 mg capsule 25 mg PO QHS PRN (Reason: insominia) Qty: 30 0RF Referrals / Follow Up: Care Physician,No Primary [Primary Care Provider] - Disposition Disposition (needs filled in before D/C Order can be placed): Against Medical Advice
== END 2024-07-15 07:25 | disposition left against medical advice (07) | DRG 894 ==
LOC: ED 13:43 → MS3 14:21
PROVIDERS: Nurse Practitioner; Admitting Provider Hospitalist; Emergency Provider Emergency Medicine; Visit Provider Internal Medicine
DX: F11.23 Opioid dependence with withdrawal (principal); E87.5 Hyperkalemia; I10 Essential (primary) hypertension; F19.10 Other psychoactive substance abuse, uncomplicated; F17.210 Nicotine dependence, cigarettes, uncomplicated; M79.7 Fibromyalgia; M54.9 Dorsalgia, unspecified; G47.00 Insomnia, unspecified; Z90.710 Acquired absence of both cervix and uterus; G89.29 Other chronic pain
CPT/HCPCS: 36415; 80048; 80307; 82077; 83735; 84100; 85025; 85027; 99284; A4216

== ENCOUNTER 2024-07-30 16:20 | Inpatient (IN) | payer MEDICARE, SELFPAY ==
[2024-07-30] VITALS (11 sets, daily range): BP systolic 164–237; BP diastolic 86–123; PULSE 87–122; RESP 16–20; TEMP 36.6–37.3; O2SAT 93–99; BMI 30.7; BMI 29.7
[2024-07-30] MEDS: Ondansetron ODT 4 MG Tablet 8 MG PO (16:44)
--- NOTE | 2024-07-30 16:48 | EX.ED.DYSGE1 ---
HPI <TYLER Gooden - Last Filed: 07/30/24 20:25> History of Present Illness Chief Complaint: Substance Abuse Narrative Narrative: Patient is a 59-year-old female with history of lupus, hypertension who presents to the emergency department for substance abuse secondary to use of fentanyl. Pay states she uses approximate 2 g of fentanyl daily, she usually ingested by snorting it. Patient states that she has been using this 2017. I did see the patient for the similar complaint on July 04, 2024, patient was then admitted, however left AGAINST MEDICAL ADVICE the next day. Patient states that she swears that she is going to stay this time. Patient states that she thinks that she is too old for this. And would like some help. Last time of usage was 3 days ago. PFSH <TYLER Gooden - Last Filed: 07/30/24 20:25> [facility] Medical History (Updated 07/30/24 @ 20:[address] Smitha Smith DO) Polysubstance abuse Substance abuse Chronic pain Seizures Insomnia Anxiety Neuropathy Opiate dependence Opiate dependence Ophthalmic herpes zoster infection Agoraphobia Fusion of lumbar spine Smoker Hypertension Fibromyalgia Lupus Hypertension Fibromyalgia Alcohol abuse SLE (systemic lupus erythematosus) Home Medications ?Medication ?Instructions ?Recorded ?Last Taken ?Type clonidine HCl 0.1 mg tablet 0.1 mg PO TID Check with primary 09/08/22 09/08/22 History doctor Allergy/AdvReac Type Severity Reaction Status Date / Time hydrocodone bitartrate (From Allergy Rash Verified 07/30/24 16:25 Vicodin) nortriptyline HCl (From Allergy Rash Verified 07/30/24 16:25 Pamelor) gabapentin AdvReac Other Verified 07/30/24 16:25 prednisone AdvReac Other Verified 07/30/24 16:25 pregabalin (From Lyrica) AdvReac Other Verified 07/30/24 16:25 zolpidem tartrate (From AdvReac Other Verified 07/30/24 16:25 Ambien) Family History Other Cancer Leukemia Surgical History History of back surgery H/O: hysterectomy Social History household members: significant other Smoking Status: Current every day smoker tobacco type: cigarettes alcohol intake: former substance use type: former substance user ROS <TYLER Gooden - Last Filed: 07/30/24 20:25> ROS ED ROS Narrative Constitutional: Negative for fever, weight loss, weakness. Positive for chills Eyes: Negative for vision loss, vision change, double vision ENT: Negative for any sore throat, ear pain, congestion Cardiovascular: Negative for any chest pain, tightness, palpitations Respiratory: Negative for any cough, sputum production, hemoptysis, dyspnea, dyspnea on exertion, orthopnea Gastrointestinal: Negative for any constipation, blood in stool, blood in vomit. Positive for abdominal pain, nausea and vomiting, diarrhea : Negative for any urinary frequency, dysuria, retention, blood in urine Muscle skeletal: Negative for any neck pain, back pain. Positive myalgias Neurological: Negative for any headache, syncope, dizziness Skin: Negative for any rashes, itching, abrasions, lacerations Psychiatric: Negative for any depression, anxiety, stress, suicidal ideation, homicidal ideation Hematologic: Negative for any excessive bruising, easy bleeding EXAM <TYLER Gooden - Last Filed: 07/30/24 20:25> Physical Exam Narrative Exam Narrative: Vital signs reviewed. Patient seems anxious however is alert and orient x 4. Patient is slightly shaky, patient is hypertensive, tachycardic. HEET: Head normocephalic atraumatic, TMs clear bilaterally. Posterior pharynx is clear, moist mucous membranes. Nares clear bilaterally. Neck: Supple with no lymphadenopathy or tenderness. No signs of meningismus. Cardiac: Tachycardic rhythm no murmurs gallops or rubs, equal peripheral pulses bilaterally. Respiratory: Lungs clear to auscultation bilaterally. No chest tenderness. Abdomen: Soft, nontender, nondistended. No abdominal bruit or pulsatile masses. No hepatosplenomegaly Extremities: No peripheral edema, no signs of gross trauma or deformity. Active full range of motion of all extremities. Neuro: Cranial nerves II through XII intact, no focal neurological deficits. Skin: Clean dry and intact with no rash, purpura, petechiae, vesicles or pustules. Backs/flank: No CVA tenderness, no midline spinal tenderness, no deformity. Psych: Normal mood and affect. No SI, HI or acute psychosis. Patient does seem to be slightly anxious. Const Vital Signs: 07/30/24 16:23 07/30/24 17:22 07/30/24 18:00 Temperature 98.1 F Temperature Source Temporal Pulse Rate 122 H 87 89 Respiratory Rate 16 16 16 Blood Pressure 212/101 H 200/110 H 201/110 H Blood Pressure Mean 138 140 140 Pulse Ox 95 99 99 Oxygen Delivery Method Room Air 07/30/24 19:00 07/30/24 19:31 07/30/24 20:00 Temperature Temperature Source Pulse Rate 90 109 H 108 H Respiratory Rate 18 18 18 Blood Pressure 202/112 H 230/123 H 237/123 H Blood Pressure Mean 142 158 161 Pulse Ox 99 98 98 Oxygen Delivery Method Room Air Room Air 07/30/24 20:09 07/30/24 20:28 Temperature 98 F Temperature Source Pulse Rate 111 H Respiratory Rate 20 H Blood Pressure 218/106 H 227/108 H Blood Pressure Mean 143 147 Pulse Ox 96 Oxygen Delivery Method <Dr. Eddie Alanis MD - Last Filed: 07/30/24 20:31> Physical Exam Const Vital Signs: 07/30/24 16:23 07/30/24 17:22 07/30/24 18:00 Temperature 98.1 F Temperature Source Temporal Pulse Rate 122 H 87 89 Respiratory Rate 16 16 16 Blood Pressure 212/101 H 200/110 H 201/110 H Blood Pressure Mean 138 140 140 Pulse Ox 95 99 99 Oxygen Delivery Method Room Air 07/30/24 19:00 07/30/24 19:31 07/30/24 20:00 Temperature Temperature Source Pulse Rate 90 109 H 108 H Respiratory Rate 18 18 18 Blood Pressure 202/112 H 230/123 H 237/123 H Blood Pressure Mean 142 158 161 Pulse Ox 99 98 98 Oxygen Delivery Method Room Air Room Air 07/30/24 20:09 07/30/24 20:28 Temperature 98 F Temperature Source Pulse Rate 111 H Respiratory Rate 20 H Blood Pressure 218/106 H 227/108 H Blood Pressure Mean 143 147 Pulse Ox 96 Oxygen Delivery Method MDM <TYLER Gooden - Last Filed: 07/30/24 20:25> MDM Lab Data Labs: Laboratory Results - last 24 hr 07/30/24 07/30/24 07/30/24 17:05 17:36 18:56 WBC 27.6 H RBC 4.89 Hgb 14.6 Hct 43.2 MCV 88.3 MCH 29.9 MCHC 33.8 RDW Std Deviation 42.8 RDW Coeff of Anatoliy 13.2 Plt Count 479 H MPV 9.9 Immature Gran % (Auto) 0.700 Neut % (Auto) 84.7 H Lymph % (Auto) 6.8 L [place] % (Auto) 7.0 Eos % (Auto) 0.5 Baso % (Auto) 0.3 Absolute Neuts (auto) 23.4 H Absolute Lymphs (auto) 1.87 Nucleated RBC % 0 Diff Path Review May foll Reactive Lymphocytes 2+ Platelet Estimate SLT INC Plt Morphology Comment GIANT RBC Morphology NORM C+C ESR PT 13.8 INR 1.0 Sodium 128 L Potassium 3.9 Chloride 91 L Carbon Dioxide 24.0 Anion Gap 13 BUN 30 H Creatinine 0.95 Estim Creat Clear Calc 60.19 Est GFR (MDRD) Af Amer 77 Est GFR (MDRD) Non-Af 63 BUN/Creatinine Ratio 31.5 H Glucose 118 H Calcium 9.4 Total Bilirubin 3.10 H AST 258 H ALT 157 H Alkaline Phosphatase 579 H Total Protein 7.8 Albumin 3.5 Globulin 4.3 H Albumin/Globulin Ratio 0.8 L Procalcitonin 0.83 H Urine Opiates Screen NEGATIVE Urine Methadone Screen NEGATIVE Ur Barbiturates Screen NEGATIVE Ur Phencyclidine Scrn NEGATIVE Ur Amphetamines Screen POSITIVE H MDMA (Ecstasy) Screen POSITIVE H U Benzodiazepines Scrn NEGATIVE Urine Cocaine Screen NEGATIVE U Cannabinoids Screen NEGATIVE Ur Drug Screen Comment Ethyl Alcohol < 3.0 07/30/24 19:45 WBC RBC Hgb Hct MCV MCH MCHC RDW Std Deviation RDW Coeff of Anatoliy Plt Count MPV Immature Gran % (Auto) Neut % (Auto) Lymph % (Auto) [place] % (Auto) Eos % (Auto) Baso % (Auto) Absolute Neuts (auto) Absolute Lymphs (auto) Nucleated RBC % Diff Path Review Reactive Lymphocytes Platelet Estimate Plt Morphology Comment RBC Morphology ESR 54 H PT INR Sodium Potassium Chloride Carbon Dioxide Anion Gap BUN Creatinine Estim Creat Clear Calc Est GFR (MDRD) Af Amer Est GFR (MDRD) Non-Af BUN/Creatinine Ratio Glucose Calcium Total Bilirubin AST ALT Alkaline Phosphatase Total Protein Albumin Globulin Albumin/Globulin Ratio Procalcitonin Urine Opiates Screen Urine Methadone Screen Ur Barbiturates Screen Ur Phencyclidine Scrn Ur Amphetamines Screen MDMA (Ecstasy) Screen U Benzodiazepines Scrn Urine Cocaine Screen U Cannabinoids Screen Ur Drug Screen Comment Ethyl Alcohol Radiography Diagnostic Testing: Clinical Impression(s) from Imaging Studies Abdomen/Pelvis CT 07/30/24 19:18 IMPRESSION: 1. Distention of the common bile duct, main pancreatic duct and gallbladder without evidence of a radiopaque gallstone or lesion. MRI with and without contrast and with MRCP is recommended for further assessment. 2. Distention of the C-loop of the duodenum without a transition point, possibly due to mild ileus. 3. Enlarged lymph node in the hepatic hilar region, which is nonspecific, and possibly reactive. [facility] Treatment and Re-Evaluation :: Patient appears to be in mild distress secondary to withdrawal symptoms. Patient is shaky, having some dry heaving, nausea and vomiting, patient is currently withdrawing from fentanyl. Patient was seen 16 days ago for the same and then left AGAINST MEDICAL ADVICE. Patient states that she wants to stay this time. Patient will give the basic laboratory values. Patient was given oral Zofran. Patient is in no obvious respiratory distress Patient was given oral Zofran. Patient continued to be hypertensive. Opiate withdrawal form was ordered. Patient's CBC did showed a significant leukocytosis of 27.6. Remainder of the CBC was unremarkable. Patient's platelet count was 479. Patient's PT was 13.8 with INR 1.0. Patient's chemistries show sodium 128, creatinine is within normal limits. Patient did have some transaminitis with a total bilirubin of 3.1, AST of 258, ALT 107, alkaline phosphatase of 579. This is new since prior lab values. Patient's toxicology was positive for amphetamines, MDMA. I did speak with the admitting physician. Patient be given oral clonidine. Patient's 7 Tatian rate was 54, procalcitonin was elevated 0.83, alcohol was negative. Patient CT scan showed distention of the common bile duct, main pancreatic duct and gallbladder without evidence of any radiopaque gallstones or lesion. Distended of the C-loop of the duodenum without a transition point possible due to mild ileus. Enlargement noted hepatic hilar region which is nonspecific. I did speak with the admitting physician. Patient will likely have GI consult tomorrow for an MRCP. Patient will be excepted to PCU as a full admission. Stable for admission. <Dr. Eddie Alanis MD - Last Filed: 07/30/24 20:31> [facility] MDM Narrative Medical decision making narrative: I have personally performed a face to face assessment of the patient and have reviewed the LAVERN Note. I performed a substantive portion of the visit including all aspects of the following. My buchanan findings include: History is remarkable for snorting 2 g of fentanyl daily. She has not used in over 48 hours. She does report tremors, diarrhea abdominal discomfort. She states she has not injected in years. There is evidence of prior track christie. None of them appear fresh. She denies history of heart murmur, mitral prolapse or SBE. She denies fever. Patient was seen July 14. She left prior to admission. She states she will stay this time. She states she cannot live this way. Patient does not have history of hypertension. Exam is is remarkable for an elevated blood pressure of 212/101 and 201/110. This may be due to the fact that she is having withdrawal symptoms. HEENT exam reveals no acute abnormality. There is no papilledema. Neck is supple. There is no carotid bruits. Heart is regular. Rate is normal. There is no murmur, gallop or rub. Lungs encrustation with symmetric breath sound. Patient has evidence of prior injection sites of her extremities. Abdomen is soft nontender. She is alert oriented x 3. Cranials 2 through 12 intact. Moves all extremities. Medical Decision Making screening blood work for addiction medicine was entered. Patient has elevated white count. In light of this we will obtain blood cultures x 2 and a procalcitonin level. This was discussed with the hospitalist Dr. Smith. Her tox screen was positive for amphetamines, MDMA. There is negative for opiates. Fentanyl may not trigger a positive opiate response. The fact that she is positive for amphetamines and MDMA may be the reason for her initial tachycardia and hypertension. Will have nurse continue to monitor blood pressure. If there is evidence of endorgan dysfunction will treat the hypertension. Other additions or changes: Patient's bilirubin is up AST ALT and alk phos are all up compared to prior. Will obtain PT/INR to determine she has a coagulopathy. She also has hyponatremia which is new. Lab Data Attestation: I reviewed the patient's lab results. Lab results narrative: Documented under the MDM narrative of the EMR. Alcohol level was nondetected. Labs: Laboratory Results - last 24 hr 07/30/24 07/30/24 07/30/24 17:05 17:36 18:56 WBC 27.6 H RBC 4.89 Hgb 14.6 Hct 43.2 MCV 88.3 MCH 29.9 MCHC 33.8 RDW Std Deviation 42.8 RDW Coeff of Anatoliy 13.2 Plt Count 479 H MPV 9.9 Immature Gran % (Auto) 0.700 Neut % (Auto) 84.7 H Lymph % (Auto) 6.8 L [place] % (Auto) 7.0 Eos % (Auto) 0.5 Baso % (Auto) 0.3 Absolute Neuts (auto) 23.4 H Absolute Lymphs (auto) 1.87 Nucleated RBC % 0 Diff Path Review May foll Reactive Lymphocytes 2+ Platelet Estimate SLT INC Plt Morphology Comment GIANT RBC Morphology NORM C+C ESR PT 13.8 INR 1.0 Sodium 128 L Potassium 3.9 Chloride 91 L Carbon Dioxide 24.0 Anion Gap 13 BUN 30 H Creatinine 0.95 Estim Creat Clear Calc 60.19 Est GFR (MDRD) Af Amer 77 Est GFR (MDRD) Non-Af 63 BUN/Creatinine Ratio 31.5 H Glucose 118 H Calcium 9.4 Total Bilirubin 3.10 H AST 258 H ALT 157 H Alkaline Phosphatase 579 H Total Protein 7.8 Albumin 3.5 Globulin 4.3 H Albumin/Globulin Ratio 0.8 L Procalcitonin 0.83 H Urine Opiates Screen NEGATIVE Urine Methadone Screen NEGATIVE Ur Barbiturates Screen NEGATIVE Ur Phencyclidine Scrn NEGATIVE Ur Amphetamines Screen POSITIVE H MDMA (Ecstasy) Screen POSITIVE H U Benzodiazepines Scrn NEGATIVE Urine Cocaine Screen NEGATIVE U Cannabinoids Screen NEGATIVE Ur Drug Screen Comment Ethyl Alcohol < 3.0 07/30/24 19:45 WBC RBC Hgb Hct MCV MCH MCHC RDW Std Deviation RDW Coeff of Anatoliy Plt Count MPV Immature Gran % (Auto) Neut % (Auto) Lymph % (Auto) [place] % (Auto) Eos % (Auto) Baso % (Auto) Absolute Neuts (auto) Absolute Lymphs (auto) Nucleated RBC % Diff Path Review Reactive Lymphocytes Platelet Estimate Plt Morphology Comment RBC Morphology ESR 54 H PT INR Sodium Potassium Chloride Carbon Dioxide Anion Gap BUN Creatinine Estim Creat Clear Calc Est GFR (MDRD) Af Amer Est GFR (MDRD) Non-Af BUN/Creatinine Ratio Glucose Calcium Total Bilirubin AST ALT Alkaline Phosphatase Total Protein Albumin Globulin Albumin/Globulin Ratio Procalcitonin Urine Opiates Screen Urine Methadone Screen Ur Barbiturates Screen Ur Phencyclidine Scrn Ur Amphetamines Screen MDMA (Ecstasy) Screen U Benzodiazepines Scrn Urine Cocaine Screen U Cannabinoids Screen Ur Drug Screen Comment Ethyl Alcohol Radiography Diagnostic Testing: Clinical Impression(s) from Imaging Studies Abdomen/Pelvis CT 07/30/24 19:18 IMPRESSION: 1. Distention of the common bile duct, main pancreatic duct and gallbladder without evidence of a radiopaque gallstone or lesion. MRI with and without contrast and with MRCP is recommended for further assessment. 2. Distention of the C-loop of the duodenum without a transition point, possibly due to mild ileus. 3. Enlarged lymph node in the hepatic hilar region, which is nonspecific, and possibly reactive. Reading Location: [facility] Management Discussion w/another healthcare provider: Hospitalist (Documented under the MDM/plan of the EMR) Discharge Plan Dx/Rx/DC Orders Clinical Impression: Opiate abuse, continuous, Transaminitis, Leukocytosis, Jaundice, Common bile duct dilatation, Abdominal pain, Hypertension, Opiate withdrawal, Sinus tachycardia seen on potline monitor Disposition Disposition: Acute Care Hospital [facility]
[2024-07-30 17:52] LABS: Absolute Lymphocyte Count 1.87 X10^3/uL (0.83-4.51); Absolute Neutrophil Count 23.4 X10^3/uL (2.0-7.7); Basophil# 0.09 X10^3/uL; Basophil% 0.3 % (0-1); Eosinophil# 0.13 X10^3/uL; Eosinophils% 0.5 % (0-5); Hematocrit 43.2 % (37-47); Hemoglobin 14.6 g/dL (12.0-15.0); Lymphocyte # 1.87 X10^3/ul (0.83-4.51); Lymphocyte % 6.8 % (19-41); Mean Corp Hgb Conc 33.8 g/dL (32-36); Mean Corpuscular Hgb 29.9 pg (27.0-32.0); Mean Corpuscular Volume 88.3 fL (81-99); Mean Platelet Vol. 9.9 fl (6.2-12.0); Monocyte# 1.92 X10^3/uL; NRBC Flagged by Analyzer 0 % (0-5); Neutrophil # 23.41 X10^3/uL (2.7-7.7); Neutrophil % 84.7 % (47-70); POSITIVE DIFFERENTIAL YES; POSITIVE MORPHOLOGY YES; Platelet Count 479 K/mm3 (150-450); RBC Distribution Width CV 13.2 % (11.6-14.6); RBC Distribution Width SD 42.8 fl (35.1-43.9); Red Blood Count 4.89 M/mm3 (4.2-5.4)
[2024-07-30 17:54] LABS: Amphetamine Urine POSITIVE (<1000 ng/mL); Barbiturate Urine VISTA NEGATIVE (< 200 ng/mL); Benzodiazepine Urine VISTA NEGATIVE (< 200 ng/mL); Cocaine Urine VISTA NEGATIVE (< 300 ng/mL); Ecstacy Urine VISTA POSITIVE (< 500 ng/mL); Methadone Urine VISTA NEGATIVE (< 300 ng/mL); Opiates Urine NEGATIVE (< 300 ng/mL); PCP Urine NEGATIVE (< 25 ng/mL); THC Urine VISTA NEGATIVE (< 50 ng/mL); Vista UDS pH Range 5
[2024-07-30 18:25] LABS: Differential Indicated SCAN CRITERIA MET
[2024-07-30 18:26] LABS: White Blood Count 27.6 K/mm3 (4.4-11.0)
[2024-07-30 18:30] LABS: Reactive Lymphocyte 2+
[2024-07-30 18:31] LABS: Platelet Estimate SLT INC (ADEQ); Platelet Morphology GIANT; Red Cell Morphology NORM C+C NORMAL (NORM C&C)
[2024-07-30 18:36] LABS: ALB/GLOB Ratio 0.8 RATIO (0.9-2.4); AST(SGOT) 258 U/L (15-37); Alanine Aminotransfer ALT/SGPT 157 U/L (13-56); Albumin, Serum 3.5 g/dL (3.2-5.0); Alcohol, Blood (Medical)-Serum < 3.0 mg/dL; Alkaline Phosphatase 579 U/L (45-117); Anion Gap 13 (5-15); BUN 30 mg/dL (7-18); BUN/Creat Ratio 31.5 RATIO (10-20); Calcium,Total 9.4 mg/dL (8.5-10.1); Chloride 91 mmol/L (98-107); Creatinine, Serum 0.95 mg/dL (0.55-1.02); EST Glomerular Filtration Rate 63 mL/min (>60); Est Glom Filt Rate - Afr Amer 77 mL/min (>60); Estimated Creatinine Clearance 60.19 ml/min; Globulin 4.3 g/dL (2.2-4.2); Glucose 118 mg/dL (74-106); Potassium 3.9 mmol/L (3.5-5.1); Protein, Total 7.8 g/dL (6.4-8.2); Sodium Level 128 mmol/L (136-145)
[2024-07-30] MEDS: Metoclopramide 10 MG Tablet PO (19:03)
--- NOTE | 2024-07-30 19:18 | CT_ITS ---
PROCEDURE: ABDOMEN/PELVIS W IV CONT ONLY REASON FOR EXAM: Transaminitis TECHNIQUE: Abdomen and pelvis CT with intravenous contrast. Multiplanar reconstructions were performed. COMPARISON: None. FINDINGS: Lower chest: Unremarkable. Liver: Unremarkable. Biliary/gallbladder: The common bile duct is dilated measuring 1 cm in diameter. No significant intrahepatic biliary dilatation is identified. The gallbladder is distended. No radiopaque gallstones are identified. Pancreas: The main pancreatic duct is dilated as well measuring 4.9 mm in diameter at the level of the pancreatic head. Spleen: Unremarkable. Adrenal glands: Unremarkable. Kidneys: Unremarkable. Gastrointestinal/peritoneum: The C-loop of the duodenum is dilated measuring 3.4 cm in diameter without a transition point.Mild colonic diverticulosis is present.The appendix is unremarkable.No free air or free fluid. Vascular: Moderate scattered atherosclerotic calcifications are present. Lymph nodes: There is an enlarged lymph node in the hepatic hilar region measuring 1.3 cm in short axis. Pelvic organs: Prior hysterectomy. Bladder: Unremarkable. Bones: There are postoperative changes of a posterior lumbar fusion and laminectomy spanning L4 through S1. Soft tissues: Unremarkable. CT/Abdomen/Pelvis W IV Cont ONLY IMPRESSION: 1. Distention of the common bile duct, main pancreatic duct and gallbladder wit hout evidence of a radiopaque gallstone or lesion. MRI with and without contrast and with MRCP is recommended for further assessme nt. 2. Distention of the C-loop of the duodenum without a transition point, possibl y due to mild ileus. 3. Enlarged lymph node in the hepatic hilar region, which is nonspecific, and p ossibly reactive. Reading Location: [facility]
--- NOTE | 2024-07-30 19:18 | PCM.HP.STD ---
HPI - General General Date of Admission: 07/30/24 Date of Service: 07/30/24 Chief Complaint: Opiate Detox HPI Narrative EMILY DELACRUZ, is a 59 F who presented to the emergency department at [facility] on 07/30/2024 for opiate detox. On arrival she reported that she has had some nausea vomiting and some diarrhea with about 5-6 stools daily that were watery in nature since or Wednesday of last week. She has had epigastric pain associated and now is currently dry heaving. She not been able to eat much over the last several days. She was admitted here on 07/14/2024 for opiate detox and left AGAINST MEDICAL ADVICE on 07/15/2024. She indicates she is feeling much worse at this time and that is why she represented. She is currently using about 2 g of fentanyl daily. She initially got addicted after back surgery and has been using recreationally as self-medicating for pain and anxiety/depression since. She states she has significant insomnia as well. She has had no fever or chills. She is complaining of general malaise decreased p.o. intake and weight loss related to this. Vital signs on presentation showed a temperature of 98.1, heart rate 122, blood pressure 212/101, respiratory rate 16 and pulse ox is 95% on room air. CBC shows a leukocytosis of 27.6 and a left shift with an 84.7% neutrophilia. Platelet count was 479,000. Coags were unremarkable. Chemistry panel showed hyponatremia with a sodium of 128 which is lower than her baseline, normal renal function, significantly elevated transaminases with a total bilirubin of 3.1 AST of 258, ALT of 157, and alk phos of 579 all which are uptrending. CRP and ESR pending at the time of admission. Procalcitonin was elevated at 0.83. UA is pending. Toxicology screen was positive for amphetamines and MDMA. Given her transaminases and bilirubin elevation, and a CT of the abdomen pelvis with IV contrast was obtained and demonstrated distention of the common bile duct, main pancreatic duct and gallbladder without evidence of radiopaque gallstone or lesion, distention of the C-loop of the duodenum without a transition point suspicious for ileus and enlarged lymph nodes in the hepatic hilar region which were nonspecific. [facility] Medical History Polysubstance abuse Substance abuse Chronic pain Seizures Insomnia Anxiety Neuropathy Opiate dependence Opiate dependence Ophthalmic herpes zoster infection Agoraphobia Fusion of lumbar spine Smoker Hypertension Fibromyalgia Lupus Hypertension Fibromyalgia Alcohol abuse SLE (systemic lupus erythematosus) Home Medications ?Medication ?Instructions ?Recorded ?Last Taken ?Type clonidine HCl 0.1 mg tablet 0.1 mg PO TID Check with primary 09/08/22 09/08/22 History doctor Allergy/AdvReac Type Severity Reaction Status Date / Time hydrocodone bitartrate (From Allergy Rash Verified 07/30/24 16:25 Vicodin) nortriptyline HCl (From Allergy Rash Verified 07/30/24 16:25 Pamelor) gabapentin AdvReac Other Verified 07/30/24 16:25 prednisone AdvReac Other Verified 07/30/24 16:25 pregabalin (From Lyrica) AdvReac Other Verified 07/30/24 16:25 zolpidem tartrate (From AdvReac Other Verified 07/30/24 16:25 Ambien) Family History Other Cancer Leukemia Surgical History History of back surgery H/O: hysterectomy Social History household members: significant other Smoking Status: Current every day smoker tobacco type: cigarettes alcohol intake: former substance use type: former substance user ROS Constitutional Constitutional: Reports anorexia, change in weight, fatigue and weakness; Denies chills, fever(s), malaise, night sweats or other Eyes Eyes: Denies blurry vision, change in eye color, change in vision, discharge from eye(s), double vision, erythema, eye pain, loss of vision or other ENT HEENT: Denies abnormal hearing, dysphagia, ear pain, epistaxis, headache(s), hearing loss, nasal congestion, nasal discharge, post nasal drip, sinus pressure, sore throat or other Cardiovascular Cardiovascular: Denies chest pain, claudication, dyspnea on exertion, edema, lightheadedness, orthopnea, palpitations, paroxysmal nocturnal dyspnea, rapid heart rate, syncope or other Respiratory/Chest Respiratory/Chest: Denies cough, dyspnea, excessive phlegm production, hemoptysis, productive cough, shortness of breath at rest, shortness of breath with exertion, wheezing or other Gastrointestinal Gastrointestinal: Reports abdominal pain, diarrhea, nausea and vomiting; Denies coffee ground emesis, constipation, dyspepsia, hematemesis, hematochezia, loose stools, melena or other Genitourinary Genitourinary: Denies burning urination, difficulty urinating, dysuria, hematuria, nocturia, urinary frequency, urinary hesitancy, urinary incontinence, urinary urgency or other Musculoskeletal Musculoskeletal: Reports back pain and neck pain; Denies arthralgias, joint pain, joint stiffness, joint swelling, myalgias or other Neurologic Neurologic: Reports numbness and paresthesias; Denies abnormal gait, abnormal speech, confusion, disequilibrium, dizziness, focal weakness, headache(s), seizure-like activity, seizures, syncope, tingling, tremor(s) or other Psychiatric Psychiatric: Reports anxiety and depression; Denies homicidal ideation, suicidal ideation or other Endocrine Endocrinology: Denies change in body appearance, cold intolerance, excessive sweating, heat intolerance, polydipsia, polyuria or other Hematologic/Lymphatic Hematologic/Lymphatic: Denies anemia, easy bleeding, easy bruising, lymphadenopathy or other Allergic/Immunologic Allergic/Immunologic: Denies rhinitis, hives, eczemia, asthma or other Vital Signs Vital Signs Vital Signs: 07/30/24 16:23 07/30/24 17:22 07/30/24 18:00 Temperature 98.1 F Temperature Source Temporal Pulse Rate 122 H 87 89 Respiratory Rate 16 16 16 Blood Pressure 212/101 H 200/110 H 201/110 H Blood Pressure Mean 138 140 140 Pulse Ox 95 99 99 Oxygen Delivery Method Room Air 07/30/24 19:00 Temperature Temperature Source Pulse Rate 90 Respiratory Rate 18 Blood Pressure 202/112 H Blood Pressure Mean 142 Pulse Ox 99 Oxygen Delivery Method Weight Weight: 76.204 kg Body Mass Index (BMI) 30.7 Physical Exam Const alert, oriented x3 and well nourished; Negative for average body habitus or healthy appearing Constitutional Narrative: Obese, upper middle-aged, white female who appears much older than stated age, lying in bed, appears mildly uncomfortable but not toxic, interacts appropriately General Appearance: cooperative HEENT normocephalic, head/scalp atraumatic and hearing grossly normal bilaterally; Negative for moist oral mucous membranes HEENT Narrative: Dentition is poor, Mallampati is 2, no thrush, mucous membranes are slightly dry Eyes EOMs intact bilaterally and conjunctivae normal Eyes Narrative: Mild scleral icterus Neck supple Neck Narrative: Trachea midline, no thyroid enlargement Resp normal respiratory effort, no retractions, no use of accessory muscles and No clear to auscultation bilaterally Resp Narrative: Diminished diffusely with few scattered end expiratory wheezes Auscultation: wheezes; Negative for rales or rhonchi Cardio regular rhythm, S1 normal heart sound, S2 normal heart sound, no murmurs, no rub, no gallops and no clicks Cardio Narrative: Mild tachycardia GI normal to inspection, nondistended, normoactive bowel sounds and soft to palpation GI Narrative: Tenderness in the epigastrium and across upper abdominal quadrants bilaterally Extremity no clubbing, cyanosis or edema Extremity Narrative: Pedal pulses and radial pulses are 2+ Skin No skin turgor normal, no petechiae and no mottling Skin Narrative: Skin tenting Neuro oriented x3, moves all extremities and no focal motor deficits Speech: speech normal Psych affect normal Psych Narrative: Pleasant interacts appropriately Results Lab / Micro Data 07/30/24 17:36 07/30/24 17:36 Labs: Laboratory Results - last 24 hr 07/30/24 17:05: Urine Opiates Screen NEGATIVE, Urine Methadone Screen NEGATIVE, Ur Barbiturates Screen NEGATIVE, Ur Phencyclidine Scrn NEGATIVE, Ur Amphetamines Screen POSITIVE H, MDMA (Ecstasy) Screen POSITIVE H, U Benzodiazepines Scrn NEGATIVE, Urine Cocaine Screen NEGATIVE, U Cannabinoids Screen NEGATIVE, Ur Drug Screen Comment 07/30/24 17:36: WBC 27.6 H, RBC 4.89, Hgb 14.6, Hct 43.2, MCV 88.3, MCH 29.9, MCHC 33.8, RDW Std Deviation 42.8, RDW Coeff of Anatoliy 13.2, Plt Count 479 H, MPV 9.9, Immature Gran % (Auto) 0.700, Neut % (Auto) 84.7 H, Lymph % (Auto) 6.8 L, [place] % (Auto) 7.0, Eos % (Auto) 0.5, Baso % (Auto) 0.3, Absolute Neuts (auto) 23.4 H, Absolute Lymphs (auto) 1.87, Nucleated RBC % 0, Diff Path Review May foll, Reactive Lymphocytes 2+, Platelet Estimate SLT INC, Plt Morphology Comment GIANT, RBC Morphology NORM C+C, Sodium 128 L, Potassium 3.9, Chloride 91 L, Carbon Dioxide 24.0, Anion Gap 13, BUN 30 H, Creatinine 0.95, Estim Creat Clear Calc 60.19, Est GFR (MDRD) Af Amer 77, Est GFR (MDRD) Non-Af 63, BUN/Creatinine Ratio 31.5 H, Glucose 118 H, Calcium 9.4, Total Bilirubin 3.10 H, AST 258 H, ALT 157 H, Alkaline Phosphatase 579 H, Total Protein 7.8, Albumin 3.5, Globulin 4.3 H, Albumin/Globulin Ratio 0.8 L, Ethyl Alcohol < 3.0 Assessment & Plan Assessment/Plan (1) Transaminitis: (2) Hyperbilirubinemia: (3) Leukocytosis: (4) Thrombocytosis: (5) Hyponatremia: (6) Ileus: (7) Dilated pancreatic duct: (8) Dilated bile duct: (9) Opiate abuse, continuous: (10) Nausea vomiting and diarrhea: PLAN: Plan Dilated pancreatic and bile duct with transaminitis and hyperbilirubinemia -Highly suspect etiology for her nausea vomiting -N.p.o. except for sips and chips and p.o. meds -IV fluids at 100 cc/h x 3 L -As needed antiemetics -Tylenol for pain as she is here for opiate detox -As needed Toradol since we are unable to use opiates -Protonix 40 mg IV push twice daily -MRCP -Repeat a.m. transaminases -Check CA 19-9 and CEA -GI consultation as patient will likely need ERCP Ileus -Secondary to the above -Appears that swelling around the duodenum is causing obstruction and ileus -N.p.o. except for sips and chips and p.o. medications -IV fluids as noted above Leukocytosis/thrombocytosis -Highly suspect reactive versus infective -Blood cultures are pending -Check UA and if suggestive infection check urine culture -Start vancomycin and Zosyn -Would anticipate more gram-negative infections and gram-positive's but with her history of fentanyl abuse will cover both for now and narrow as able Nausea/vomiting/diarrhea -Suspect related to the above -Will check enteric panel, C. difficile, lactoferrin -IV fluids as noted above -Monitor stools Hyponatremia -Suspect related to decreased p.o. intake and hypovolemia -IV fluids as above -Repeat lab in a.m. Elevated blood pressure without the diagnosis of hypertension -Suspect multifactorial -PRNs available with hydralazine 10 every 6 for systolic pressure greater than 160 -May need scheduled medication depending on trends Opiate abuse with withdrawal -Currently using about 2 g of fentanyl daily intranasally -Opiate detox protocol with buprenorphine -Supportive medications as needed -Will avoid opiates for pain relief Suspected COPD -As needed albuterol Reported lupus/SLE -Patient is on no chronic treatment for this -Unsure if this is been officially diagnosed Chronic low back pain -As needed Tylenol available -Toradol available History of withdrawal seizures -Related to benzodiazepine withdrawal -No chronic seizure disorder otherwise Depression/anxiety/agoraphobia/insomnia -Patient is not treated -Suspect self-medication with opiates -Highly recommend outpatient follow-up with psychiatry and counseling Tobacco abuse -Recommend cessation -Patient smokes about a pack of cigarettes daily -Nicotine replacement ordered DVT prophylaxis -Lovenox subcu daily CODE STATUS -DNR CCA as discussed at admission--> patient is aware that there is perioperative/procedural temporary suspension for 24 hours of CODE STATUS Charges/Coding Visit Charges Inpatient E&M: 92123 Init Hosp L3
[2024-07-30 19:22] LABS: Prothrombin Time (Protime)PT. 13.8 SECONDS (11.7-14.9)
[2024-07-30 19:36] LABS: Procalcitonin 0.83 ng/mL (0.00-0.09)
[2024-07-30] MEDS: cloNIDine HCl 0.1 MG Tablet PO (19:47)
[2024-07-30 20:16] LABS: Erythrocyte Sedimentation Rate 54 mm/hr (0-30)
[2024-07-30 20:33] LABS: Lactic Acid 0.8 mmol/L (0.4-1.9)
[2024-07-30] MEDS: 0.9% Normal Saline (1000mL) 1,000 ML 100 ML IV (21:30)
[2024-07-30] MEDS: Pantoprazole Sodium 40 MG in 0.9% Normal Saline (100mL MB+) 100 ML 330 MG IV (22:12)
[2024-07-30] MEDS: Ketorolac 15 MG/ML Vial IV (22:12)
[2024-07-30] MEDS: hydrOXYzine PAM 25 MG Capsule 50 MG PO (22:25)
[2024-07-30] MEDS: 0.9% Saline Lock 10 ML Syringe IV (22:25)
[2024-07-30] MEDS: hydrALAZINE 20 MG/ML Vial 10 MG IV (22:25)
[2024-07-30] MEDS: Buprenorphine HCl 2 MG TAB.SUBL SL (22:25)
[2024-07-30] MEDS: Vancomycin HCl 1,250 MG in 0.9% Normal Saline (250mL Bag) 250 ML 167 MG IV (22:48)
[2024-07-30] MEDS: Methocarbamol 750 MG Tablet PO (23:17)
--- NOTE | 2024-07-30 23:17 | PCM.RX.CS ---
Consult Antibiotic Management Pharmacy has been consulted to manage selected antibiotic: Vancomycin Type of Intervention Type of Consult: New start Labs Labs: Sodium 128 mmol/L (136-145) L 07/30/24 17:36 Potassium 3.9 mmol/L (3.5-5.1) 07/30/24 17:36 Chloride 91 mmol/L (98-107) L 07/30/24 17:36 Carbon Dioxide 24.0 mmol/L (21.0-32.0) 07/30/24 17:36 Anion Gap 13 (5-15) 07/30/24 17:36 BUN 30 mg/dL (7-18) H 07/30/24 17:36 Creatinine 0.95 mg/dL (0.55-1.02) 07/30/24 17:36 Est GFR (MDRD) Af Amer 77 mL/min (>60) 07/30/24 17:36 Est GFR (MDRD) Non-Af 63 mL/min (>60) 07/30/24 17:36 BUN/Creatinine Ratio 31.5 RATIO (10-20) H 07/30/24 17:36 Glucose 118 mg/dL (74-106) H 07/30/24 17:36 Microbiology Microbiology: Microbiology 07/30/24 22:00 Stool Stool Lactoferrin - Final Dosing Weight Weight used for dosin.9 kg Estimated Creatinine Clearance Estimated Creatinine Clearance: 60 Goal Trough Goal Trough: 15-20 mcg/mL Pharmacy Plan for Drug Dosing Pharmacy Plan for Drug Dosing: Pharmacy Service will continue to monitor and adjust dosing as required. Follow-Up Labs Follow-Up Labs: Trough: Vancomycin Date/Time Labs Ordered Labs to be done on [date and time ordered]: 08/01/24 @8567
[2024-07-31] VITALS (9 sets, daily range): BP systolic 130–177; BP diastolic 66–94; PULSE 100–111; RESP 18–20; TEMP 36.8–38.1; O2SAT 93–98; BMI 29.7
[2024-07-31] MEDS: Loperamide 2 MG Capsule PO (00:18)
[2024-07-31] MEDS: cloNIDine HCl 0.1 MG Tablet PO ×2 (00:18→13:54)
[2024-07-31] MEDS: Dicyclomine 10 MG Capsule 20 MG PO ×2 (00:18→15:24)
[2024-07-31] MEDS: Piperacil/Tazobactam 3.375 GM in 0.9% Normal Saline (50mL MB+) 50 ML IV ×4 (00:29→22:52)
--- NOTE | 2024-07-31 00:31 | NURSING ---
Zosyn given late at this time due to limited IV access and incompatible antibiotics
[2024-07-31 03:17] LABS: Mucous, Urine 0 SEEN /hpf (<or=2+)
[2024-07-31 03:46] LABS: Glucose, Dipstick Normal (Normal); Ketone-Dipstick 5 mg/dl (Negative); Leukocyte Esterase-Dipstick Negative /ul (Negative); Nitrite-Dipstick Negative (Negative); Occult Blood-Urine Negative /ul (Negative); Protein-Dipstick 30 mg/dl (Negative); Urine Clarity Clear (Clear); Urine Urobilinogen 4 mg/dl (Normal); Urine pH 6.5 (5.0 - 8.0)
[2024-07-31 04:05] LABS: Urine Bilirubin Dipstick 1 mg/dL (Negative)
[2024-07-31 04:06] LABS: Bacteria 2+ /hpf (None Seen); Color, Urine Yellow (Yellow); Red Blood Cells-Urine 0 SEEN /hpf (0-5); Squamous Epithelial Cells - UA 0-5 SEEN /hpf (5-10); White Blood Cells 0-5 SEEN /hpf (0-5)
[2024-07-31] MEDS: Buprenorphine HCl 2 MG TAB.SUBL SL ×3 (06:03→22:20)
[2024-07-31] MEDS: Metoclopramide 10 MG/2 ML Vial IV ×3 (06:03→22:20)
[2024-07-31] MEDS: 0.9% Saline Lock 10 ML Syringe IV ×5 (06:03→18:03)
[2024-07-31] MEDS: hydrOXYzine PAM 25 MG Capsule 50 MG PO ×2 (06:03→15:20)
[2024-07-31] MEDS: Ketorolac 15 MG/ML Vial IV ×3 (06:04→18:03)
[2024-07-31 08:57] LABS: Absolute Lymphocyte Count 1.27 X10^3/uL (0.83-4.51); Absolute Neutrophil Count 13.4 X10^3/uL (2.0-7.7); Basophil# 0.07 X10^3/uL; Basophil% 0.4 % (0-1); Eosinophil# 0.02 X10^3/uL; Eosinophils% 0.1 % (0-5); Hematocrit 39.6 % (37-47); Hemoglobin 13.3 g/dL (12.0-15.0); Lymphocyte # 1.27 X10^3/ul (0.83-4.51); Lymphocyte % 7.9 % (19-41); Mean Corp Hgb Conc 33.6 g/dL (32-36); Mean Corpuscular Hgb 30.1 pg (27.0-32.0); Mean Corpuscular Volume 89.6 fL (81-99); Mean Platelet Vol. 9.9 fl (6.2-12.0); Monocyte# 1.12 X10^3/uL; NRBC Flagged by Analyzer 0 % (0-5); Neutrophil # 13.44 X10^3/uL (2.7-7.7); Neutrophil % 83.9 % (47-70); Platelet Count 437 K/mm3 (150-450); RBC Distribution Width CV 13.4 % (11.6-14.6); RBC Distribution Width SD 44.1 fl (35.1-43.9); Red Blood Count 4.42 M/mm3 (4.2-5.4)
[2024-07-31 09:31] LABS: ALB/GLOB Ratio 0.8 RATIO (0.9-2.4); AST(SGOT) 181 U/L (15-37); Alanine Aminotransfer ALT/SGPT 183 U/L (13-56); Albumin, Serum 3.1 g/dL (3.2-5.0); Alkaline Phosphatase 554 U/L (45-117); Anion Gap 12 (5-15); BUN 21 mg/dL (7-18); BUN/Creat Ratio 25.6 RATIO (10-20); Calcium,Total 9.3 mg/dL (8.5-10.1); Chloride 101 mmol/L (98-107); Creatinine, Serum 0.82 mg/dL (0.55-1.02); EST Glomerular Filtration Rate 75 mL/min (>60); Est Glom Filt Rate - Afr Amer 91 mL/min (>60); Estimated Creatinine Clearance 68.67 ml/min; Glucose 99 mg/dL (74-106); Phosphorus 3.3 mg/dL (2.5-4.9); Potassium 3.7 mmol/L (3.5-5.1); Protein, Total 7.1 g/dL (6.4-8.2); Sodium Level 134 mmol/L (136-145); Thyroid Stim Hormone (TSH) 0.487 uIU/mL (0.358-3.740)
--- NOTE | 2024-07-31 10:00 | MRI_ITS ---
PROCEDURE: MRCP ABDOMEN WITHOUT CONTRAST REASON FOR EXAM: Pain, vomiting, biliary ductal dilation TECHNIQUE: Multisequence multiplanar MR images of the abdomen were obtained without the administration of intravenous contrast. COMPARISON: 07/30/2024 FINDINGS: Liver, spleen, pancreas and adrenal glands are within normal limits. Dilated gallbladder with several small calculi. Borderline generalized gallbladder wall thickening. No significant pericholecystic fluid or edema. No intrahepatic ductal dilation. Borderline dilation of the common bile duct measuring 6 mm. No biliary ductal filling defects, strictures or cystic changes. Normal caliber pancreatic duct. Mild wall thickening of the duodenum, nonspecific. Kidneys are within normal limits. No significant hydronephrosis. No abdominal aortic aneurysm or bulky adenopathy. Lung bases are clear. MRI/MRCP Abdomen without Contrast IMPRESSION: 1. Borderline dilation of the common bile duct measuring 6 mm. No intrahepatic ductal dilation. No evidence of choledocholithiasis. 2. Mild wall thickening of the duodenum, potentially related to duodenitis. Pl ease correlate. 3. Dilated gallbladder with several small dependent calculi and borderline wall thickening. Cholecystitis not excluded. Reading Location: [facility]
--- NOTE | 2024-07-31 10:15 | PCM.PN.HOSP ---
Subjective Subjective Doing well, no issues overnight Objective Data Objective Data Vital Signs: Vital Signs Temp Pulse Resp BP Pulse Ox O2 Del Method 99.1 F 109 H 18 141/90 H 93 Room Air 07/31/24 06:01 07/31/24 06:01 07/31/24 06:01 07/31/24 06:01 07/31/24 06:01 07/31/24 08:12 Oxygen Delivery Method Room Air Weight: 162 lb 14.746 oz Body Mass Index (BMI) 29.7 Intake & Output: Intake and Output for Last 24 Hours 07/30/24 07/31/24 08/01/24 03:59 03:59 03:59 Intake Total 515 / 515 906.46 / 906.46 Balance 515 / 515 906.46 / 906.46 Lab / Micro Data 07/31/24 08:43 07/31/24 08:43 Labs: Laboratory Results - last 24 hr 07/30/24 17:05: Urine Opiates Screen NEGATIVE, Urine Methadone Screen NEGATIVE, Ur Barbiturates Screen NEGATIVE, Ur Phencyclidine Scrn NEGATIVE, Ur Amphetamines Screen POSITIVE H, MDMA (Ecstasy) Screen POSITIVE H, U Benzodiazepines Scrn NEGATIVE, Urine Cocaine Screen NEGATIVE, U Cannabinoids Screen NEGATIVE, Ur Drug Screen Comment 07/30/24 17:36: WBC 27.6 H, RBC 4.89, Hgb 14.6, Hct 43.2, MCV 88.3, MCH 29.9, MCHC 33.8, RDW Std Deviation 42.8, RDW Coeff of Anatoliy 13.2, Plt Count 479 H, MPV 9.9, Immature Gran % (Auto) 0.700, Neut % (Auto) 84.7 H, Lymph % (Auto) 6.8 L, [place] % (Auto) 7.0, Eos % (Auto) 0.5, Baso % (Auto) 0.3, Absolute Neuts (auto) 23.4 H, Absolute Lymphs (auto) 1.87, Nucleated RBC % 0, Diff Path Review May foll, Reactive Lymphocytes 2+, Platelet Estimate SLT INC, Plt Morphology Comment GIANT, RBC Morphology NORM C+C, Sodium 128 L, Potassium 3.9, Chloride 91 L, Carbon Dioxide 24.0, Anion Gap 13, BUN 30 H, Creatinine 0.95, Estim Creat Clear Calc 60.19, Est GFR (MDRD) Af Amer 77, Est GFR (MDRD) Non-Af 63, BUN/Creatinine Ratio 31.5 H, Glucose 118 H, Calcium 9.4, Total Bilirubin 3.10 H, AST 258 H, ALT 157 H, Alkaline Phosphatase 579 H, Total Protein 7.8, Albumin 3.5, Globulin 4.3 H, Albumin/Globulin Ratio 0.8 L, Ethyl Alcohol < 3.0 07/30/24 18:56: PT 13.8, INR 1.0, Procalcitonin 0.83 H 07/30/24 19:45: ESR 54 H, Lactic Acid 0.8 07/31/24 03:09: Urine Color Yellow, Urine Clarity Clear, Urine pH 6.5, Ur Specific [place] 1.010, Urine Protein 30 H, Urine Glucose (UA) Normal, Urine Ketones 5 H, Urine Occult Blood Negative, Urine Nitrite Negative, Urine Bilirubin 1 H, Urine Urobilinogen 4 H, Ur Leukocyte Esterase Negative, Urine RBC 0 SEEN, Urine WBC 0-5 SEEN, Ur Squamous Epith Cells 0-5 SEEN, Urine Bacteria 2+, Urine Mucus 0 SEEN 07/31/24 08:43: WBC 16.0 H, RBC 4.42, Hgb 13.3, Hct 39.6, MCV 89.6, MCH 30.1, MCHC 33.6, RDW Std Deviation 44.1 H, RDW Coeff of Anatoliy 13.4, Plt Count 437, MPV 9.9, Immature Gran % (Auto) 0.700, Neut % (Auto) 83.9 H, Lymph % (Auto) 7.9 L, [place] % (Auto) 7.0, Eos % (Auto) 0.1, Baso % (Auto) 0.4, Absolute Neuts (auto) 13.4 H, Absolute Lymphs (auto) 1.27, Nucleated RBC % 0, Sodium 134 L, Potassium 3.7, Chloride 101, Carbon Dioxide 21.0, Anion Gap 12, BUN 21 H, Creatinine 0.82, Estim Creat Clear Calc 68.67, Est GFR (MDRD) Af Amer 91, Est GFR (MDRD) Non-Af 75, BUN/Creatinine Ratio 25.6 H, Glucose 99, Calcium 9.3, Phosphorus 3.3, Magnesium 2.0, Total Bilirubin 3.70 H, AST 181 H, ALT 183 H, Alkaline Phosphatase 554 H, Total Protein 7.1, Albumin 3.1 L, Globulin 4.0, Albumin/Globulin Ratio 0.8 L, TSH 0.487 Micro: Microbiology 07/30/24 22:00 Stool Clostridioides difficile (PCR) - Final 07/30/24 22:00 Stool Stool Lactoferrin - Final Radiography Diagnostic Testing: Radiology Impression Abdomen/Pelvis CT 07/30/24 19:18 IMPRESSION: 1. Distention of the common bile duct, main pancreatic duct and gallbladder without evidence of a radiopaque gallstone or lesion. MRI with and without contrast and with MRCP is recommended for further assessment. 2. Distention of the C-loop of the duodenum without a transition point, possibly due to mild ileus. 3. Enlarged lymph node in the hepatic hilar region, which is nonspecific, and possibly reactive. Reading Location: [facility] Physical Exam Narrative General: Alert, Oriented x3, Cooperative, No apparent distress HEENT: Atraumatic, PERRLA, EOMI, Normocephalic, scleral icterus Oral: Moist Mucosa Neck: Supple, No JVD Lungs: Diminished, Normal air movement, No rhonchi, scattered wheeze, No rales Cardiovascular: Regular rate, Regular Rhythm, Normal S1, Normal S2, No murmurs Abdomen: Soft, mild tender to epigastric region, Non-Distended, No Hepato-splenomegaly Extremities: No edema, Capillary Refill Less than 3 Seconds Skin: No rashes, No breakdown Musculoskeletal: No Tenderness to Palpation of Joints or Extremities Neurological: No focal neurological deficits, Motor Exam 5/5 strength throughout, Sensory exam intact to light touch and pain Psych/Mental Status: Normal Affect, Appropriate Assessment & Plan Assessment/Plan (1) Transaminitis: (2) Ileus: (3) Dilated pancreatic duct: (4) Dilated bile duct: (5) Opiate abuse, continuous: (6) Nausea vomiting and diarrhea: PLAN: Plan 1. Hyperbilirubinemia and elevated LFTs in the setting of a dilated pancreatic and bile duct with ileus ? The ileus is likely cause of her nausea and vomiting though enteric pathogen panel is pending, C. difficile was negative ? Continue with IV fluids ? N.p.o. ? MRCP ? Tumor markers are being checked ? Appreciate GIs assistance, will likely need an ERCP ? Continue PPI ? Leukocytosis is resolving, continue with vancomycin and Zosyn will narrow as culture data comes back 2. Opiate abuse with withdrawal/history of withdrawal seizures from benzos/tobacco abuse/anxiety/depression/agoraphobia/insomnia ? Continue with the opiate detox protocol ? Will have her follow-up with 180 ? She does not take anything for her mental health problems, would recommend outpatient follow-up ? Continue nicotine patch, discussed cessation 3. Elevated blood pressure ? Unclear if she has a history of hypertension she is not taking the clonidine that is on her med list ? Will treat her withdrawal symptoms and her ileus and if she continues to have elevated blood pressures then we will start medications ? In the meantime we will monitor and make adjustments as necessary DVT: Jemmax Charges/Coding Visit Charges Inpatient E&M: 29445 Subs Hosp L2
[2024-07-31] MEDS: Enoxaparin 40 MG/0.4 ML Syringe SC (10:22)
[2024-07-31] MEDS: hydrALAZINE 20 MG/ML Vial 10 MG IV (10:31)
[2024-07-31] MEDS: 0.9% Normal Saline (1000mL) 1,000 ML 100 ML IV (10:36)
--- NOTE | 2024-07-31 11:57 | CASEMGMT ---
EDWARD LIM Assessment: Face to Face with pt for initial transition planning/care coordination assessment. EDWARD LIM introduced self and role at [facility], pt voices understanding and consents to assessment. Pt is A&O x4 and answers all questions appropriately at this time. Pt is sitting up in bed in no distress. Care providers, pharmacy, and demographics verified/updated. Strata: 2 Admitting Dx: Ileus Dilated Pancreatic duct fenanyl withdrawl PCP: No PCP, provided pt with a list of local PCP providers. Specialists: Denies [facility] Insurance: [employer] Prescription Benefit: yes LNOK: [employer] [place] Living Arrangements: Pt lives with sig. other in a trailer with 3 steps to enter. ADLs: Pt states I with ADLs and IADLs. Transportation: Pt sig. other provides transportation. DME: [facility] H[facility]/SNF: Denies Hx of. Pt states no concerns with going home at time of dc. Pt states no further concerns/needs. CM to follow. Advised pt to ask CM if any further question/concerns/needs arise, voices understanding. Pt Goal: Home Plan: Home, follow plan of care. Daphne LEON CM
[2024-07-31] MEDS: Pantoprazole Sodium 40 MG in 0.9% Normal Saline (100mL MB+) 100 ML 330 MG IV ×2 (12:44→22:20)
[2024-07-31] MEDS: Gabapentin 300 MG Capsule PO (14:00)
[2024-07-31] MEDS: Vancomycin HCl 750 MG in 0.9% Normal Saline (250mL Bag) 250 ML 250 MG IV (14:03)
[2024-07-31] MEDS: Methocarbamol 750 MG Tablet PO (15:24)
[2024-07-31] MEDS: Acetaminophen 325 MG Tablet 650 MG PO (15:25)
[2024-07-31 16:09] LABS: Pathologist Review Reviewed
[2024-08-01] VITALS (10 sets, daily range): BP systolic 148–198; BP diastolic 76–109; PULSE 97–112; RESP 16–18; TEMP 36.7–37.1; O2SAT 94–99; BMI 29.7
[2024-08-01] MEDS: Vancomycin HCl 750 MG in 0.9% Normal Saline (250mL Bag) 250 ML 250 MG IV ×3 (00:11→23:34)
[2024-08-01] MEDS: Ketorolac 15 MG/ML Vial IV ×5 (00:12→23:35)
[2024-08-01] MEDS: 0.9% Normal Saline (1000mL) 1,000 ML 100 ML IV (01:15)
[2024-08-01] MEDS: hydrALAZINE 20 MG/ML Vial 10 MG IV ×3 (02:20→21:28)
[2024-08-01 04:07] LABS: CRP, High Sensitivity 7.33 mg/L (0.00-3.00)
[2024-08-01] MEDS: Buprenorphine HCl 2 MG TAB.SUBL SL ×3 (06:19→22:15)
[2024-08-01] MEDS: hydrOXYzine PAM 25 MG Capsule 50 MG PO ×2 (06:20→21:28)
[2024-08-01] MEDS: Metoclopramide 10 MG/2 ML Vial IV ×3 (06:20→21:27)
[2024-08-01] MEDS: Dicyclomine 10 MG Capsule 20 MG PO (06:20)
[2024-08-01] MEDS: Piperacil/Tazobactam 3.375 GM in 0.9% Normal Saline (50mL MB+) 50 ML IV ×3 (06:20→21:27)
[2024-08-01 07:14] LABS: Absolute Lymphocyte Count 1.05 X10^3/uL (0.83-4.51); Absolute Neutrophil Count 15.1 X10^3/uL (2.0-7.7); Basophil# 0.04 X10^3/uL; Basophil% 0.2 % (0-1); Eosinophil# 0.11 X10^3/uL; Eosinophils% 0.6 % (0-5); Hematocrit 34.4 % (37-47); Hemoglobin 11.1 g/dL (12.0-15.0); Lymphocyte # 1.05 X10^3/ul (0.83-4.51); Lymphocyte % 6.1 % (19-41); Mean Corp Hgb Conc 32.3 g/dL (32-36); Mean Corpuscular Hgb 29.3 pg (27.0-32.0); Mean Corpuscular Volume 90.8 fL (81-99); Mean Platelet Vol. 10.1 fl (6.2-12.0); Monocyte# 1.03 X10^3/uL; Monocyte% 5.9 % (0-10); NRBC Flagged by Analyzer 0 % (0-5); Neutrophil # 15.06 X10^3/uL (2.7-7.7); Neutrophil % 86.9 % (47-70); Platelet Count 331 K/mm3 (150-450); RBC Distribution Width SD 46.6 fl (35.1-43.9); Red Blood Count 3.79 M/mm3 (4.2-5.4); White Blood Count 17.4 K/mm3 (4.4-11.0)
[2024-08-01] MEDS: Gabapentin 300 MG Capsule PO (07:58)
[2024-08-01 08:08] LABS: Carbohydrate AG 19-9 17 U/mL (0-35); Carcinoembryonic Antigen 1.8 ng/mL (0.0-4.7)
[2024-08-01 08:36] LABS: ALB/GLOB Ratio 0.8 RATIO (0.9-2.4); AST(SGOT) 105 U/L (15-37); Alanine Aminotransfer ALT/SGPT 133 U/L (13-56); Albumin, Serum 2.6 g/dL (3.2-5.0); Alkaline Phosphatase 473 U/L (45-117); Anion Gap 8 (5-15); BUN 15 mg/dL (7-18); BUN/Creat Ratio 19.4 RATIO (10-20); Calcium,Total 8.8 mg/dL (8.5-10.1); Chloride 109 mmol/L (98-107); Creatinine, Serum 0.78 mg/dL (0.55-1.02); EST Glomerular Filtration Rate 81 mL/min (>60); Est Glom Filt Rate - Afr Amer 97 mL/min (>60); Estimated Creatinine Clearance 72.19 ml/min; Globulin 3.3 g/dL (2.2-4.2); Glucose 96 mg/dL (74-106); Potassium 3.6 mmol/L (3.5-5.1); Protein, Total 5.9 g/dL (6.4-8.2); Sodium Level 137 mmol/L (136-145)
--- NOTE | 2024-08-01 10:10 | ADDICTION ---
Met with patient to complete RAMP assessment and to discuss discharge planning. Pt was very resistant to discussing any changes that need to be made other than quitting use. Pt did not have any interest in any tx recommendations and as soon as clinician entered her room expressed her lack of interest. She reports that her sweetie won't let me do it anymore and that should be enough . Clinician offered resources. She was only willing to accept a business card.
[2024-08-01] MEDS: Vancomycin Trough/Random Due 1 LAB MC (10:44)
[2024-08-01] MEDS: Enoxaparin 40 MG/0.4 ML Syringe SC (10:45)
[2024-08-01] MEDS: Pantoprazole Sodium 40 MG in 0.9% Normal Saline (100mL MB+) 100 ML 330 MG IV ×2 (10:50→21:28)
[2024-08-01] MEDS: Methocarbamol 750 MG Tablet PO (10:55)
--- NOTE | 2024-08-01 11:08 | PN.HOSP_ITS ---
Subjective Subjective Feels better than when she came in. White blood cell count little bit more elevated today than it was yesterday Objective Data Objective Data Vital Signs: Vital Signs Temp Pulse Resp BP Pulse Ox O2 Del Method 98.4 F 107 H 18 189/83 H 97 Room Air 08/01/24 10:42 08/01/24 10:42 08/01/24 10:42 08/01/24 10:42 08/01/24 10:42 08/01/24 10:42 Oxygen Delivery Method Room Air Weight: 162 lb 14.746 oz Body Mass Index (BMI) 29.7 Intake & Output: Intake and Output for Last 24 Hours 07/31/24 08/01/24 08/02/24 03:59 03:59 03:59 Intake Total 515 / 515 2821.66 / 2821.66 50 / 50 Balance 515 / 515 2821.66 / 2821.66 50 / 50 Lab / Micro Data 08/01/24 06:53 08/01/24 06:53 Labs: Laboratory Results - last 24 hr 07/30/24 17:36: Diff Path Review Reviewed 07/30/24 19:45: C-React Prot High Sens 7.33 H 07/31/24 08:43: Carcinoembryonic Ag 1.8, CA 19-9 Antigen 17 08/01/24 06:53: WBC 17.4 H, RBC 3.79 L, Hgb 11.1 L, Hct 34.4 L, MCV 90.8, MCH 29.3, MCHC 32.3, RDW Std Deviation 46.6 H, RDW Coeff of Anatoliy 14.0, Plt Count 331, MPV 10.1, Immature Gran % (Auto) 0.300, Neut % (Auto) 86.9 H, Lymph % (Auto) 6.1 L, [place] % (Auto) 5.9, Eos % (Auto) 0.6, Baso % (Auto) 0.2, Absolute Neuts (auto) 15.1 H, Absolute Lymphs (auto) 1.05, Nucleated RBC % 0, Sodium 137, Potassium 3.6, Chloride 109 H, Carbon Dioxide 20.0 L, Anion Gap 8, BUN 15, Creatinine 0.78, Estim Creat Clear Calc 72.19, Est GFR (MDRD) Af Amer 97, Est GFR (MDRD) Non-Af 81, BUN/Creatinine Ratio 19.4, Glucose 96, Calcium 8.8, Total Bilirubin 5.40 H, AST 105 H, ALT 133 H, Alkaline Phosphatase 473 H, Total Protein 5.9 L, A lbumin 2.6 L, Globulin 3.3, Albumin/Globulin Ratio 0.8 L Micro: Microbiology 07/30/24 22:00 Stool Stool Lactoferrin - Final 07/30/24 22:00 Stool Enteric Bacteriology - Final 07/30/24 22:00 Stool Clostridioides difficile (PCR) - Final Physical Exam Narrative General: Alert, Oriented x3, Cooperative, No apparent distress HEENT: Atraumatic, PERRLA, EOMI, Normocephalic, scleral icterus Oral: Moist Mucosa Neck: Supple, No JVD Lungs: Diminished, Normal air movement, No rhonchi, scattered wheeze, No rales Cardiovascular: Regular rate, Regular Rhythm, Normal S1, Normal S2, No murmurs Abdomen: Soft, mild tender to epigastric region, Non-Distended, No Hepato- splenomegaly Extremities: No edema, Capillary Refill Less than 3 Seconds Skin: No rashes, No breakdown Musculoskeletal: No Tenderness to Palpation of Joints or Extremities Neurological: No focal neurological deficits, Motor Exam 5/5 strength throughout, Sensory exam intact to light touch and pain Psych/Mental Status: Normal Affect, Appropriate Assessment & Plan Assessment/Plan (1) Transaminitis: (2) Ileus: (3) Dilated pancreatic duct: (4) Dilated bile duct: (5) Opiate abuse, continuous: (6) Nausea vomiting and diarrhea: PLAN: Plan 1. Hyperbilirubinemia and elevated LFTs in the setting of a dilated pancreatic and bile duct with ileus ? The ileus is likely cause of her nausea and vomiting though enteric pathogen panel is pending, C. difficile was negative ? Continue with IV fluids ?Clear liquids ? MRCP does not show any obstruction ? Tumor markers are being checked ? Appreciate GIs assistance, may need an ERCP, LFTs are trending down possible that she had passed a stone just before the CT scan ? Continue PPI ?Continue with vancomycin and Zosyn will narrow as culture data comes back 2. Opiate abuse with withdrawal/history of withdrawal seizures from benzos/tobacco abuse/anxiety/depression/agoraphobia/insomnia ? Continue with the opiate detox protocol ? Will have her follow-up with 180 ? She does not take anything for her mental health problems, would recommend outpatient follow-up ? Continue nicotine patch, discussed cessation 3. Elevated blood pressure ? Unclear if she has a history of hypertension she is not taking the clonidine that is on her med list ? Will treat her withdrawal symptoms and her ileus and if she continues to have elevated blood pressures then we will start medications ? In the meantime we will monitor and make adjustments as necessary DVT: [place] Charges/Coding Visit Charges Inpatient E&M: 66403 Subs Hosp L2
[2024-08-01 11:17] LABS: Vancomycin, Trough Level 17.6 ug/mL (5.0-15.0)
--- NOTE | 2024-08-01 11:29 | PCM.RX.CS ---
Consult Antibiotic Management Pharmacy has been consulted to manage selected antibiotic: Vancomycin Type of Intervention Type of Consult: Follow-up Suspected Infection Suspected Infection: Other (EMPIRIC) Prior Doses of Antibiotics Prior Doses of Antibiotics Received/Current Regimen: Vancomycin 750 mg IV Q12H last dose given 08/01/24 @ 0011 Labs Labs: Sodium 137 mmol/L (136-145) 08/01/24 06:53 Potassium 3.6 mmol/L (3.5-5.1) 08/01/24 06:53 Chloride 109 mmol/L (98-107) H 08/01/24 06:53 Carbon Dioxide 20.0 mmol/L (21.0-32.0) L 08/01/24 06:53 Anion Gap 8 (5-15) 08/01/24 06:53 BUN 15 mg/dL (7-18) 08/01/24 06:53 Creatinine 0.78 mg/dL (0.55-1.02) 08/01/24 06:53 Est GFR (MDRD) Af Amer 97 mL/min (>60) 08/01/24 06:53 Est GFR (MDRD) Non-Af 81 mL/min (>60) 08/01/24 06:53 BUN/Creatinine Ratio 19.4 RATIO (10-20) 08/01/24 06:53 Glucose 96 mg/dL (74-106) 08/01/24 06:53 Vancomycin Trough 17.6 ug/mL (5.0-15.0) H 08/01/24 10:35 Microbiology Microbiology: Microbiology 07/30/24 22:00 Stool Stool Lactoferrin - Final 07/30/24 22:00 Stool Enteric Bacteriology - Final 07/30/24 22:00 Stool Clostridioides difficile (PCR) - Final Dosing Weight Weight used for dosin kg Estimated Creatinine Clearance Estimated Creatinine Clearance: ~ 72 Goal Trough Goal Trough: 15-20 mcg/mL Pharmacy Plan for Drug Dosing Pharmacy Plan for Drug Dosing: Vancomycin trough = 17.6, continue current dosing Pharmacy Service will continue to monitor and adjust dosing as required. Follow-Up Labs Follow-Up Labs: Trough: Vancomycin Date/Time Labs Ordered Labs to be done on [date and time ordered]: 08/03/24 @ 1030
[2024-08-01] MEDS: amLODIPine 10 MG Tablet PO (11:43)
[2024-08-01] MEDS: 0.9% Saline Lock 10 ML Syringe IV ×4 (12:17→18:02)
--- NOTE | 2024-08-01 17:22 | CON.PCM.GI_ITS ---
HPI Consult Data Date of Consult: 08/01/24 HPI Narrative Reason for Consultation: Dilated common bile duct HPI Narrative: EMILY DELACRUZ, is a 59 F who presented to the emergency department at [facility] on 07/30/2024 for opiate detox. On arrival she reported that she has had some nausea vomiting and some diarrhea with about 5-6 stools daily that were watery in nature since or Wednesday of last week. She had epigastric pain associated and now is currently dry heaving. She was admitted here on 07/14/2024 for opiate detox and left AGAINST MEDICAL ADVICE on 07/15/2024. Vital signs on presentation showed a temperature of 98.1, heart rate 122, blood pressure 212/101, respiratory rate 16 and pulse ox is 95% on room air. CBC shows a leukocytosis of 27.6 and a left shift with an 84.7% neutrophilia. Platelet count was 479,000. Coags were unremarkable. Chemistry panel showed hyponatremia with a sodium of 128 which is lower than her baseline, normal renal function, significantly elevated transaminases with a total bilirubin of 3.1 AST of 258, ALT of 157, and alk phos of 579 all which are uptrending. C CT of the abdomen pelvis with IV contrast was obtained and demonstrated distention of the common bile duct, main pancreatic duct and gallbladder without evidence of radiopaque gallstone or lesion, distention of the C-loop of the duodenum without a transition point suspicious for ileus and enlarged lymph nodes in the hepatic hilar region which were nonspecific. MRI/MRCP 1. Borderline dilation of the common bile duct measuring 6 mm. No intrahepatic ductal dilation. No evidence of choledocholithiasis. 2. Mild wall thickening of the duodenum, potentially related to duodenitis. Please correlate. 3. Dilated gallbladder with several small dependent calculi and borderline wall thickening. Cholecystitis not excluded. FORMERLY [facility], [facility] Medical History Polysubstance abuse Substance abuse Chronic pain Seizures Insomnia Anxiety Neuropathy Opiate dependence Opiate dependence Ophthalmic herpes zoster infection Agoraphobia Fusion of lumbar spine Smoker Hypertension Fibromyalgia Lupus Hypertension Fibromyalgia Alcohol abuse SLE (systemic lupus erythematosus) Home Medications ?Medication ?Instructions ?Recorded ?Last Taken ?Type clonidine HCl 0.1 mg tablet 0.1 mg PO TID Check with jase vargas 09/08/22 09/08/22 History doctor Allergy/AdvReac Type Severity Reaction Status Date / Time hydrocodone bitartrate (From Allergy Rash Verified 07/30/24 16:25 Vicodin) nortriptyline HCl (From Allergy Rash Verified 07/30/24 16:25 Pamelor) gabapentin AdvReac Other Verified 07/30/24 16:25 prednisone AdvReac Other Verified 07/30/24 16:25 pregabalin (From Lyrica) AdvReac Other Verified 07/30/24 16:25 zolpidem tartrate (From AdvReac Other Verified 07/30/24 16:25 Ambien) Family History Other Cancer Leukemia Surgical History History of back surgery H/O: hysterectomy Social History household members: significant other Smoking Status: Current every day smoker tobacco type: cigarettes alcohol intake: former substance use type: former substance user ROS Constitutional Constitutional: Denies fatigue, fever(s), poor appetite, weight gain or weight loss Gastrointestinal Gastrointestinal: Denies belching, bloating, change in bowel habits, change in stool character, chewing difficulty, coffee ground emesis, constipation, cramping, diarrhea, dyspepsia, dysphagia, early satiety, excessive flatus, fecal incontinence, heartburn, hematemesis, hematochezia, hemorrhoids, loose stools, melena, nausea, odynophagia, rectal bleeding, tenesmus, vomiting or weight changes Physical Exam Narrative General: Alert, Oriented x3, Cooperative, No apparent distress HEENT: Atraumatic, PERRLA, EOMI, Normocephalic, scleral icterus Oral: Moist Mucosa Neck: Supple, No JVD Lungs: Diminished, Normal air movement, No rhonchi, scattered wheeze, No rales Cardiovascular: Regular rate, Regular Rhythm, Normal S1, Normal S2, No murmurs Abdomen: Soft, mild tender to epigastric region, Non-Distended, No Hepato- splenomegaly Extremities: No edema, Capillary Refill Less than 3 Seconds Skin: No rashes, No breakdown Musculoskeletal: No Tenderness to Palpation of Joints or Extremities Neurological: No focal neurological deficits, Motor Exam 5/5 strength throughout, Sensory exam intact to light touch and pain Psych/Mental Status: Normal Affect, Appropriate Lab / Micro Data 08/01/24 06:53 08/01/24 06:53 Labs: Laboratory Results - last 24 hr 07/30/24 19:45: C-React Prot High Sens 7.33 H 07/31/24 08:43: Carcinoembryonic Ag 1.8, CA 19-9 Antigen 17 08/01/24 06:53: WBC 17.4 H, RBC 3.79 L, Hgb 11.1 L, Hct 34.4 L, MCV 90.8, MCH 29.3, MCHC 32.3, RDW Std Deviation 46.6 H, RDW Coeff of Anatoliy 14.0, Plt Count 331, MPV 10.1, Immature Gran % (Auto) 0.300, Neut % (Auto) 86.9 H, Lymph % (Auto) 6.1 L, [place] % (Auto) 5.9, Eos % (Auto) 0.6, Baso % (Auto) 0.2, Absolute Neuts (auto) 15.1 H, Absolute Lymphs (auto) 1.05, Nucleated RBC % 0, Sodium 137, Potassium 3.6, Chloride 109 H, Carbon Dioxide 20.0 L, Anion Gap 8, BUN 15, Creatinine 0.78, Estim Creat Clear Calc 72.19, Est GFR (MDRD) Af Amer 97, Est GFR (MDRD) Non-Af 81, BUN/Creatinine Ratio 19.4, Glucose 96, Calcium 8.8, Total Bilirubin 5.40 H, AST 105 H, ALT 133 H, Alkaline Phosphatase 473 H, Total Protein 5.9 L, A lbumin 2.6 L, Globulin 3.3, Albumin/Globulin Ratio 0.8 L 08/01/24 10:35: Vancomycin Trough 17.6 H Micro: Microbiology 07/30/24 22:00 Stool Stool Lactoferrin - Final 07/30/24 22:00 Stool Enteric Bacteriology - Final Assessment & Plan Assessment/Plan (1) Transaminitis: (2) Hyperbilirubinemia: (3) Leukocytosis: (4) Thrombocytosis: (5) Hyponatremia: (6) Ileus: (7) Dilated pancreatic duct: (8) Dilated bile duct: (9) Opiate abuse, continuous: (10) Nausea vomiting and diarrhea: PLAN: Plan Dilated pancreatic and bile duct with transaminitis and hyperbilirubinemia -I suspect this is either from ampullary stenosis, poor flow through the duodenum causing everything to backup versus past gallstone with acute on chronic cholecystitis. At this time she is feeling better without abdominal pain and tolerating diet. Her white blood cell count is still elevated. She may need ERCP in the future depending on how her white count trends. She did have a cholestatic hepatitis when she presented with the CT and MRCP findings makes it highly suspicious for obstructive physiology. There is also the possibility that she passed a stone. Recommend continue supportive therapy and if she goes home tomorrow she will need to be on antibiotics to complete a 14-day course. Charges/Coding Visit Charges Inpatient E&M: 45797 Init Hosp L3
[2024-08-02] VITALS (13 sets, daily range): BP systolic 126–202; BP diastolic 59–95; PULSE 80–110; RESP 16–18; TEMP 36.6–36.9; O2SAT 94–97; BMI 30.9
[2024-08-02] MEDS: cloNIDine HCl 0.1 MG Tablet PO (02:01)
[2024-08-02] MEDS: 0.9% Saline Lock 10 ML Syringe IV ×6 (02:32→21:39)
[2024-08-02] MEDS: hydrALAZINE 20 MG/ML Vial 10 MG IV ×2 (02:32→06:56)
[2024-08-02] MEDS: Metoclopramide 10 MG/2 ML Vial IV ×3 (05:57→21:30)
[2024-08-02] MEDS: Piperacil/Tazobactam 3.375 GM in 0.9% Normal Saline (50mL MB+) 50 ML IV ×3 (05:57→21:37)
[2024-08-02] MEDS: hydrOXYzine PAM 25 MG Capsule 50 MG PO (05:57)
[2024-08-02] MEDS: Ketorolac 15 MG/ML Vial IV ×4 (05:57→23:54)
[2024-08-02 06:15] LABS: Absolute Lymphocyte Count 1.63 X10^3/uL (0.83-4.51); Absolute Neutrophil Count 9.3 X10^3/uL (2.0-7.7); Basophil% 0.8 % (0-1); Hematocrit 37.4 % (37-47); Hemoglobin 12.4 g/dL (12.0-15.0); Lymphocyte # 1.63 X10^3/ul (0.83-4.51); Lymphocyte % 13.1 % (19-41); Mean Corp Hgb Conc 33.2 g/dL (32-36); Mean Corpuscular Volume 90.6 fL (81-99); Mean Platelet Vol. 10.3 fl (6.2-12.0); Monocyte# 0.93 X10^3/uL; Monocyte% 7.4 % (0-10); NRBC Flagged by Analyzer 0 % (0-5); Neutrophil # 9.26 X10^3/uL (2.7-7.7); Neutrophil % 74.1 % (47-70); Platelet Count 360 K/mm3 (150-450); RBC Distribution Width CV 14.2 % (11.6-14.6); RBC Distribution Width SD 47.1 fl (35.1-43.9); Red Blood Count 4.13 M/mm3 (4.2-5.4); White Blood Count 12.5 K/mm3 (4.4-11.0)
[2024-08-02 06:43] LABS: ALB/GLOB Ratio 0.7 RATIO (0.9-2.4); AST(SGOT) 50 U/L (15-37); Alanine Aminotransfer ALT/SGPT 111 U/L (13-56); Alkaline Phosphatase 511 U/L (45-117); Anion Gap 10 (5-15); BUN 8 mg/dL (7-18); BUN/Creat Ratio 12.1 RATIO (10-20); Calcium,Total 9.2 mg/dL (8.5-10.1); Chloride 103 mmol/L (98-107); Creatinine, Serum 0.66 mg/dL (0.55-1.02); EST Glomerular Filtration Rate 97 mL/min (>60); Est Glom Filt Rate - Afr Amer 118 mL/min (>60); Estimated Creatinine Clearance 86.97 ml/min; Globulin 4.1 g/dL (2.2-4.2); Glucose 125 mg/dL (74-106); Potassium 3.2 mmol/L (3.5-5.1); Protein, Total 7.1 g/dL (6.4-8.2); Sodium Level 135 mmol/L (136-145)
[2024-08-02] MEDS: amLODIPine 10 MG Tablet PO (09:25)
[2024-08-02] MEDS: Buprenorphine HCl 2 MG TAB.SUBL SL (10:26)
[2024-08-02] MEDS: Pantoprazole Sodium 40 MG in 0.9% Normal Saline (100mL MB+) 100 ML 300 MG IV (10:32)
[2024-08-02] MEDS: Vancomycin HCl 750 MG in 0.9% Normal Saline (250mL Bag) 250 ML 250 MG IV ×2 (10:33→22:25)
[2024-08-02] MEDS: cloNIDine HCl 0.2 MG Tablet PO (11:07)
--- NOTE | 2024-08-02 12:05 | PN_ITS ---
Subjective Subjective Patient seen and examined. She had no active complaints. Review of symptoms otherwise negative. She is due for ERCP today. Objective Data Objective Data Vital Signs: Vital Signs Temp Pulse Resp BP Pulse Ox O2 Del Method 98.1 F 108 H 18 142/71 H 96 Room Air 08/02/24 09:19 08/02/24 09:19 08/02/24 09:19 08/02/24 11:56 08/02/24 09:19 08/02/24 09:19 Oxygen Delivery Method Room Air Weight: 169 lb 5.04 oz Body Mass Index (BMI) 30.9 Intake & Output: Intake and Output for Last 24 Hours 07/31/24 08/01/24 08/02/24 23:59 23:59 23:59 Intake Total 2141.66 / 2141.66 2600 / 2600 630 / 630 Balance 2141.66 / 2141.66 2600 / 2600 630 / 630 Lab / Micro Data 08/02/24 05:44 08/02/24 05:44 Labs: Laboratory Results - last 24 hr 08/02/24 05:44: WBC 12.5 H, RBC 4.13 L, Hgb 12.4, Hct 37.4, MCV 90.6, MCH 30.0, MCHC 33.2, RDW Std Deviation 47.1 H, RDW Coeff of Anatoliy 14.2, Plt Count 360, MPV 10.3, Immature Gran % (Auto) 0.600, Neut % (Auto) 74.1 H, Lymph % (Auto) 13.1 L, [place] % (Auto) 7.4, Eos % (Auto) 4.0, Baso % (Auto) 0.8, Absolute Neuts (auto) 9.3 H, Absolute Lymphs (auto) 1.63, Nucleated RBC % 0, Sodium 135 L, Potassium 3.2 L, Chloride 103, Carbon Dioxide 22.0, Anion Gap 10, BUN 8, Creatinine 0.66, Estim Creat Clear Calc 86.97, Est GFR (MDRD) Af Amer 118, Est GFR (MDRD) Non-Af 97, BUN/Creatinine Ratio 12.1, Glucose 125 H, Calcium 9.2, Total Bilirubin 1.90 H, AST 50 H, ALT 111 H, Alkaline Phosphatase 511 H, Total Protein 7.1, Albumin 3.0 L, Globulin 4.1, Albumin/Globulin Ratio 0.7 L Micro: Microbiology 07/30/24 19:15 Blood Culture (Wb) - Anticubital Right Blood Culture - Preliminary No growth in 48 hours. 07/30/24 18:56 Blood Culture (Wb) - Anticubital Right Blood Culture - Preliminary No growth in 48 hours. 07/30/24 22:00 Stool Stool Lactoferrin - Final 07/30/24 22:00 Stool Enteric Bacteriology - Final 07/30/24 22:00 Stool Clostridioides difficile (PCR) - Final Physical Exam Const alert, oriented x3, no apparent distress and well nourished General Appearance: cooperative and well developed HEENT normocephalic, head/scalp atraumatic, moist oral mucous membranes, oropharynx normal and gingiva normal Eyes PERRL and EOMs intact bilaterally Neck no lymphadenopathy and supple Lymph Lymphatic: no lymphadenopathy noted and no lymphedema noted Resp normal respiratory effort, normal air movement and clear to auscultation bilaterally Cardio regular rate, regular rhythm, S1 normal heart sound, S2 normal heart sound and no murmurs Peripheral Pulses: pulses 2+ throughout GI normal to inspection, nondistended, normoactive bowel sounds, soft to palpation, non-tender and non-distended Extremity normal capillary refill, no clubbing, cyanosis or edema and no calf tenderness General Extremity: no tenderness to palpation of joints or extremities Skin General Skin Exam: no breakdown Neuro CN's II-XII intact bilaterally, no focal motor deficits and no sensory deficits noted Motor Exam: strength 5/5 throughout and general weakness Psych thought process normal and cooperative Appearance: appropriate Assessment & Plan Assessment/Plan (1) Dilated bile duct: (2) Dilated pancreatic duct: (3) Nausea vomiting and diarrhea: (4) Ileus: PLAN: Plan #Hyperbilirubinemia and elevated liver enzymes * In the setting of dilated pancreatic and common bile duct. Also has ileus. * nausea and vomiting have improved. C diff negative * MRCP showed no evidence of obstruction * on IV vacnomycin and zosyn * GI on board. Liver enzymes trending donwards * for ERCP today * # History of opioid abuse * Was placed on opioid withdrawal protocol. Follow-up at 180 on outpatient basis. #History of anxiety and depression as well as benzodiazepine abuse * Has had withdrawal seizures from benzodiazepines in the past. Currently not any medications for anxiety and depression. Follow-up with PCP on outpatient basis. #Elevated blood pressure * Started on p.o. amlodipine. However blood pressure remains markedly elevated. Will adjust BP meds. Patient given clonidine 0.2 mg x 1 today. * Will add on p.o. metoprolol 25 mg twice daily. * #Hypokalemia: Potassium is 3.3. Will replace and trend. DVT prophylaxis: Lovenox Charges/Coding Visit Charges Inpatient E&M: 01645 Subs Hosp L2
[2024-08-02] MEDS: Metoprolol Tartrate 25 MG Tablet PO ×2 (12:52→20:51)
[2024-08-02] MEDS: Pantoprazole Sodium 40 MG in 0.9% Normal Saline (100mL MB+) 100 ML 330 MG IV (20:53)
[2024-08-03] VITALS (17 sets, daily range): BP systolic 115–190; BP diastolic 77–103; PULSE 16–98; RESP 14–84; TEMP 36.2–36.9; O2SAT 92–100; BMI 31.1
[2024-08-03] MEDS: hydrOXYzine PAM 25 MG Capsule 50 MG PO ×2 (05:11→21:14)
[2024-08-03] MEDS: Metoclopramide 10 MG/2 ML Vial IV ×3 (05:11→21:14)
[2024-08-03] MEDS: Piperacil/Tazobactam 3.375 GM in 0.9% Normal Saline (50mL MB+) 50 ML IV ×2 (05:12→18:16)
[2024-08-03] MEDS: 0.9% Saline Lock 10 ML Syringe IV ×5 (05:21→21:16)
[2024-08-03] MEDS: Ketorolac 15 MG/ML Vial IV ×4 (05:26→23:23)
[2024-08-03] MEDS: Metoprolol Tartrate 25 MG Tablet PO ×2 (08:42→21:17)
[2024-08-03] MEDS: amLODIPine 10 MG Tablet PO (08:42)
[2024-08-03] MEDS: Pantoprazole Sodium 40 MG in 0.9% Normal Saline (100mL MB+) 100 ML 330 MG IV ×2 (10:06→22:28)
[2024-08-03] MEDS: 0.9% Normal Saline (100mL Bag) 100 ML 15 ML IV (10:12)
[2024-08-03] MEDS: Vancomycin Trough/Random Due 1 LAB MC (10:15)
[2024-08-03 10:28] LABS: Absolute Lymphocyte Count 1.78 X10^3/uL (0.83-4.51); Absolute Neutrophil Count 9.2 X10^3/uL (2.0-7.7); Basophil# 0.11 X10^3/uL; Basophil% 0.8 % (0-1); Eosinophil# 0.69 X10^3/uL; Eosinophils% 5.3 % (0-5); Hematocrit 35.4 % (37-47); Hemoglobin 11.6 g/dL (12.0-15.0); Lymphocyte # 1.78 X10^3/ul (0.83-4.51); Lymphocyte % 13.7 % (19-41); Mean Corp Hgb Conc 32.8 g/dL (32-36); Mean Corpuscular Hgb 29.8 pg (27.0-32.0); Mean Platelet Vol. 10.2 fl (6.2-12.0); Monocyte# 1.12 X10^3/uL; Monocyte% 8.6 % (0-10); NRBC Flagged by Analyzer 0 % (0-5); Neutrophil # 9.22 X10^3/uL (2.7-7.7); Neutrophil % 71.2 % (47-70); Platelet Count 355 K/mm3 (150-450); RBC Distribution Width CV 14.4 % (11.6-14.6); RBC Distribution Width SD 47.9 fl (35.1-43.9); Red Blood Count 3.89 M/mm3 (4.2-5.4)
[2024-08-03 10:55] LABS: Anion Gap 8 (5-15); BUN 11 mg/dL (7-18); BUN/Creat Ratio 9.1 RATIO (10-20); Calcium,Total 8.7 mg/dL (8.5-10.1); Chloride 107 mmol/L (98-107); Creatinine, Serum 1.21 mg/dL (0.55-1.02); EST Glomerular Filtration Rate 48 mL/min (>60); Est Glom Filt Rate - Afr Amer 58 mL/min (>60); Estimated Creatinine Clearance 47.63 ml/min; Glucose 109 mg/dL (74-106); Potassium 3.4 mmol/L (3.5-5.1); Sodium Level 138 mmol/L (136-145)
--- NOTE | 2024-08-03 11:00 | PN_ITS ---
Subjective Subjective Patient seen and examined. She had no complaints. She was unable to have the ERCP yesterday and is due to have it today. She says if she needs cholecystectomy, she will want to have it done on outpatient basis as she wants to go home and get herself in the right frame of mind. She has remained hemodynamically stable. Objective Data Objective Data Vital Signs: Vital Signs Temp Pulse Resp BP Pulse Ox O2 Del Method 98.2 F 74 16 162/82 H 96 Room Air 08/03/24 10:20 08/03/24 10:20 08/03/24 10:20 08/03/24 10:20 08/03/24 10:20 08/03/24 10:20 Oxygen Delivery Method Room Air Weight: 170 lb 10.205 oz Body Mass Index (BMI) 31.1 Intake & Output: Intake and Output for Last 24 Hours 08/01/24 08/02/24 08/03/24 23:59 23:59 23:59 Intake Total 2600 / 2600 900 / 1140 605 / 605 Balance 2600 / 2600 900 / 1140 605 / 605 Lab / Micro Data 08/03/24 10:15 08/03/24 10:15 Labs: Laboratory Results - last 24 hr 08/03/24 10:15: WBC 13.0 H, RBC 3.89 L, Hgb 11.6 L, Hct 35.4 L, MCV 91.0, MCH 29.8, MCHC 32.8, RDW Std Deviation 47.9 H, RDW Coeff of Anatoliy 14.4, Plt Count 355, MPV 10.2, Immature Gran % (Auto) 0.400, Neut % (Auto) 71.2 H, Lymph % (Auto) 13.7 L, [place] % (Auto) 8.6, Eos % (Auto) 5.3 H, Baso % (Auto) 0.8, Absolute Neuts (auto) 9.2 H, Absolute Lymphs (auto) 1.78, Nucleated RBC % 0, Sodium 138, P otassium 3.4 L, Chloride 107, Carbon Dioxide 24.0, Anion Gap 8, BUN 11, C reatinine 1.21 H, Estim Creat Clear Calc 47.63, Est GFR (MDRD) Af Amer 58 L, Est GFR (MDRD) Non-Af 48 L, BUN/Creatinine Ratio 9.1 L, Glucose 109 H, Calcium 8.7 Micro: Microbiology 07/30/24 19:15 Blood Culture (Wb) - Anticubital Right Blood Culture - Preliminary No growth in 48 hours. 07/30/24 18:56 Blood Culture (Wb) - Anticubital Right Blood Culture - Preliminary No growth in 48 hours. 07/30/24 22:00 Stool Stool Lactoferrin - Final 07/30/24 22:00 Stool Enteric Bacteriology - Final 07/30/24 22:00 Stool Clostridioides difficile (PCR) - Final Physical Exam Const alert, oriented x3, no apparent distress and well nourished; Negative for average body habitus or healthy appearing General Appearance: cooperative and well developed HEENT normocephalic, head/scalp atraumatic, hearing grossly normal bilaterally, moist oral mucous membranes, oropharynx normal and gingiva normal Eyes PERRL, EOMs intact bilaterally and conjunctivae normal Eyes Narrative: Mild scleral icterus Neck no lymphadenopathy and supple Neck Narrative: Trachea midline, no thyroid enlargement Lymph Lymphatic: no lymphadenopathy noted and no lymphedema noted Resp normal respiratory effort, normal air movement, no retractions, no use of accessory muscles and clear to auscultation bilaterally Resp Narrative: Diminished diffusely with few scattered end expiratory wheezes Auscultation: wheezes; Negative for rales or rhonchi Cardio regular rate, regular rhythm, S1 normal heart sound, S2 normal heart sound, no murmurs, no rub, no gallops and no clicks Peripheral Pulses: pulses 2+ throughout GI normal to inspection, nondistended, normoactive bowel sounds, soft to palpation, non-tender and non-distended Extremity normal capillary refill, no clubbing, cyanosis or edema and no calf tenderness Extremity Narrative: Pedal pulses and radial pulses are 2+ General Extremity: no tenderness to palpation of joints or extremities Skin skin turgor normal General Skin Exam: no breakdown Neuro oriented x3, CN's II-XII intact bilaterally, moves all extremities, no focal motor deficits and no sensory deficits noted Speech: speech normal Motor Exam: strength 5/5 throughout and general weakness Psych thought process normal, cooperative and affect normal Appearance: appropriate Assessment & Plan Assessment/Plan (1) Dilated bile duct: (2) Dilated pancreatic duct: (3) Nausea vomiting and diarrhea: (4) Ileus: PLAN: Plan #Hyperbilirubinemia and elevated liver enzymes * In the setting of dilated pancreatic and common bile duct. Also has ileus. * nausea and vomiting have improved. C diff negative * MRCP showed no evidence of obstruction * on IV vacnomycin and zosyn * GI on board. Liver enzymes trending donwards * could not have ERCP yesterday. To have it done today * patient says she will want to have cholecystectomy on outpatient basis if needed. * #elevated Cr: * Cr is 1.21 today. Was 0.66 yesterday. Should improve with IV hydration. * Likely due to decreased intake as she was NPO all of yesterday awaiting ERCP. * # History of opioid abuse * Was placed on opioid withdrawal protocol. Follow-up at 180 on outpatient basis. #History of anxiety and depression as well as benzodiazepine abuse * Has had withdrawal seizures from benzodiazepines in the past. * Currently not any medications for anxiety and depression. Follow-up with PCP on outpatient basis. #Hypertension * BP has been elevated during this admission. * Started on PO amlodipine and PO metoprolol. * IV hydralazine prn. * #Hypokalemia: Potassium is 3.4 today. Will replace and trend. DVT prophylaxis: Lovenox Charges/Coding Visit Charges Inpatient E&M: 58506 Subs Hosp L2
[2024-08-03 11:11] LABS: Vancomycin, Trough Level 19.7 ug/mL (5.0-15.0)
--- NOTE | 2024-08-03 11:24 | PCM.RX.CS ---
Consult Antibiotic Management Pharmacy has been consulted to manage selected antibiotic: Vancomycin Type of Intervention Type of Consult: Follow-up Suspected Infection Suspected Infection: Other (EMPIRIC) Prior Doses of Antibiotics Prior Doses of Antibiotics Received/Current Regimen: Vancomycin 750 mg Q12H last dose given 08/02 @ 2225 Labs Labs: Sodium 138 mmol/L (136-145) 08/03/24 10:15 Potassium 3.4 mmol/L (3.5-5.1) L 08/03/24 10:15 Chloride 107 mmol/L (98-107) 08/03/24 10:15 Carbon Dioxide 24.0 mmol/L (21.0-32.0) 08/03/24 10:15 Anion Gap 8 (5-15) 08/03/24 10:15 BUN 11 mg/dL (7-18) 08/03/24 10:15 Creatinine 1.21 mg/dL (0.55-1.02) H 08/03/24 10:15 Est GFR (MDRD) Af Amer 58 mL/min (>60) L 08/03/24 10:15 Est GFR (MDRD) Non-Af 48 mL/min (>60) L 08/03/24 10:15 BUN/Creatinine Ratio 9.1 RATIO (10-20) L 08/03/24 10:15 Glucose 109 mg/dL (74-106) H 08/03/24 10:15 Vancomycin Trough 19.7 ug/mL (5.0-15.0) H 08/03/24 10:15 Microbiology Microbiology: Microbiology 07/30/24 19:15 Blood Culture (Wb) - Anticubital Right Blood Culture - Preliminary No growth in 48 hours. 07/30/24 18:56 Blood Culture (Wb) - Anticubital Right Blood Culture - Preliminary No growth in 48 hours. 07/30/24 22:00 Stool Stool Lactoferrin - Final 07/30/24 22:00 Stool Enteric Bacteriology - Final 07/30/24 22:00 Stool Clostridioides difficile (PCR) - Final Dosing Weight Weight used for dosin.4 kg Estimated Creatinine Clearance Estimated Creatinine Clearance: ~ 48 Goal Trough Goal Trough: 15-20 mcg/mL Pharmacy Plan for Drug Dosing Pharmacy Plan for Drug Dosing: Vancomycin trough = 19.7, with worsening creatinine will change to 1500 mg Q24H Pharmacy Service will continue to monitor and adjust dosing as required. Follow-Up Labs Follow-Up Labs: Trough: Vancomycin Date/Time Labs Ordered Labs to be done on [date and time ordered]: 08/05/24 @ 9187
[2024-08-03] MEDS: Vancomycin HCl 1,500 MG in 0.9% Normal Saline (500mL Bag) 500 ML 250 MG IV (12:07)
--- NOTE | 2024-08-03 15:34 | PCM.PRE.AN2 ---
ASA Classification* ASA Classification ASA Classification: 3 Assessment & Plan Anesthesia* Anesthesia Assessment Anesthesia Assessment: Discussed sedation and/or anesthesia options, risks, benefits, and alternatives with patient/parents/legal guardian/POA. Questions invited. The patient/parents/legal guardian/POA seems to understand and agrees to proceed with anesthesia plan. Reviewed the physical assessment, medical history, allergy history and patient home medications list prior to surgery/procedure/anesthetic and documented any changes. Performed airway and anesthesia risk assessments. Anesthesia Type Anesthesia Type: General History Source History Obtained from:: Patient and Chart Anesthesia Focused Assessment* Temperature: 97.8 F Pulse Rate: 88 Blood Pressure: 163/83 Respiratory Rate: 16 Pulse Ox: 94 Oxygen Delivery Method: Room Air Airway Assessment Mouth opens: >3 cm Mallampati Score: II Teeth Condition: Chipped/Broken Neck Range of motion (ROM): Limited ROM Focused Labs Anesthesia Preop lab: CBC WBC 13.0 K/mm3 (4.4-11.0) H 08/03/24 10:15 08/03/24 RBC 3.89 M/mm3 (4.2-5.4) L 08/03/24 10:15 08/03/24 Hgb 11.6 g/dL (12.0-15.0) L 08/03/24 10:15 08/03/24 Hct 35.4 % (37-47) L 08/03/24 10:15 08/03/24 Plt Count 355 K/mm3 (150-450) 08/03/24 10:15 08/03/24 CHEMISTRY Potassium 3.4 mmol/L (3.5-5.1) L 08/03/24 10:15 08/03/24 Sodium 138 mmol/L (136-145) 08/03/24 10:15 08/03/24 Magnesium 2.0 mg/dL (1.6-2.6) 07/31/24 08:43 07/31/24 Phosphorus 3.3 mg/dL (2.5-4.9) 07/31/24 08:43 07/31/24 BUN 11 mg/dL (7-18) 08/03/24 10:15 08/03/24 Creatinine 1.21 mg/dL (0.55-1.02) H 08/03/24 10:15 08/03/24 Glucose 109 mg/dL (74-106) H 08/03/24 10:15 08/03/24 TSH 0.487 uIU/mL (0.358-3.740) 07/31/24 08:43 07/31/24 COAG PT 13.8 SECONDS (11.7-14.9) 07/30/24 18:56 07/30/24 Pre-Assessment Diagnosis/Proposed Procedure Planned Operative Procedure(s): ERCP Anesthesia History 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 When Was Last Pacemaker Check QUESTION #4 FULL TEXT: You/Your Family Experience fever (hyperthermia) with Anesthesia Last Oral Intake Last Oral intake: Last Oral Intake NPO since 00:00 08/03/24 13:50 Meds taken in AM with sips of Yes 08/03/24 13:50 water? 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 Has anyone observed you stop No 07/30/24 21:43 breathing during sleep? STOP Results Positive 07/30/24 21:43 QUESTION #5 FULL TEXT : Do you snore loudly (louder than talking or can be heard through closed doors)? 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 Specify any problems Hx of Preganancy in last 3 No 07/30/24 21:43 Months Nurse Filling Out Transfusion AGILL 07/30/24 21:43 & Questions: Date: 07/30/24 07/30/24 21:43 Time: 21:44 07/30/24 21:43 Patient unable to answer at this time (ie. 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 INHALATION Q2H PRN PRN SOB &/OR WHEEZING Amlodipine Besylate 10 mg 08/01/24 11:15 08/03/24 08:42 Amlodipine 10 Mg Tablet PO 10 mg DAILY BINU Administration Protocol Clonidine 0.1 mg 07/30/24 21:27 08/02/24 02:01 Clonidine Hcl 0.1 Mg Tablet PO 0.1 mg Q8H PRN PRN Administration RESTLESSNESS Dicyclomine HCl 20 mg 07/30/24 21:27 08/01/24 06:20 Dicyclomine 10 Mg Capsule PO 20 mg Q6H PRN PRN Administration Abdominal Discomfort Enoxaparin Sodium 40 mg 07/31/24 10:00 08/03/24 08:43 Enoxaparin 40 Mg/0.4 Ml Syringe SC Not Given DAILY BINU Gabapentin 300 mg 07/30/24 21:27 08/01/24 07:58 Gabapentin 300 Mg Capsule PO 300 mg Q8H PRN PRN Administration moderate to severe anxiety Hydralazine HCl 10 mg 08/02/24 02:14 08/02/24 06:56 Hydralazine 20 Mg/Ml Vial IV 10 mg Q4H PRN PRN Administration SBP>160 Protocol Hydroxyzine Pamoate 50 mg 07/30/24 21:27 08/03/24 05:11 Hydroxyzine Geno 25 Mg Capsule PO 50 mg Q6H PRN PRN Administration mild anxiety Piperacillin Sod/Tazobactam 50 mls @ 12.5 mls/hr 07/30/24 22:00 08/03/24 09:30 Sod 3.375 gm/ Sodium Chloride IV Infused Q8 BINU Infusion Vancomycin IV-PHARMACY TO DOSE 500 mls @ 250 mls/hr 07/30/24 21:27 1 each/ Sodium Chloride IV PRN PRN Rx to Dose Protocol Pantoprazole Sodium 40 mg/ 110 mls @ 330 mls/hr 07/30/24 22:00 08/03/24 11:01 Sodium Chloride IV Infused Q12 BINU Infusion Sodium Chloride 100 mls @ 15 mls/hr 07/30/24 21:40 08/03/24 10:12 IV 15 mls/hr .Q6H40M PRN Administration Additional IVPB Infusion Sodium Chloride 100 mls @ 15 mls/hr 07/30/24 21:40 IV .Q6H40M PRN Saline Flush Vancomycin HCl 1,500 mg/ 530 mls @ 250 mls/hr 08/03/24 12:00 08/03/24 12:07 Sodium Chloride IV 250 mls/hr Q24H BINU Administration Sodium Chloride 1,000 mls @ 15 mls/hr 08/03/24 15:25 IV 08/06/24 10:04 .Q48H BINU Protocol Ketorolac Tromethamine 15 mg 07/30/24 22:15 08/03/24 12:11 Ketorolac 15 Mg/Ml Vial IV 08/04/24 22:16 15 mg Q6 BINU Administration Loperamide HCl 2 mg 07/30/24 21:27 07/31/24 00:18 Loperamide 2 Mg Capsule PO 2 mg Q4H PRN PRN Administration Loose Stools Methocarbamol 750 mg 07/30/24 21:27 08/01/24 10:55 Methocarbamol 750 Mg Tablet PO 750 mg Q6H PRN PRN Administration MUSCLE SPASM Metoclopramide HCl 10 mg 07/31/24 06:00 08/03/24 14:59 Metoclopramide 10 Mg/2 Ml Vial IV 10 mg TID BINU Administration Metoprolol Tartrate 25 mg 08/02/24 12:20 08/03/24 08:42 Metoprolol Tartrate 25 Mg Tablet PO 25 mg BID BINU Administration Protocol Nicotine 21 mg 07/30/24 22:15 08/03/24 08:42 Nicotine 21 Mg Patch TD 21 mg DAILY BINU Administration Ondansetron HCl 8 mg 07/30/24 21:27 Ondansetron 8 Mg Tablet PO Q8H PRN PRN NAUSEA Ondansetron HCl 4 mg 07/30/24 21:27 Ondansetron 4 Mg/2 Ml Vial IV Q8H PRN PRN NAUSEA/VOMITING Prochlorperazine Edisylate 5 mg 07/30/24 21:27 Prochlorperazine 10 Mg/2 Ml Vial IV Q4H PRN PRN Breakthrough Nausea/Vomiting Sodium Chloride 10 - 40 ml 07/30/24 21:40 08/03/24 14:59 0.9% Saline Lock 10 Ml Syringe IV 10 ml UD PRN Administration SALINE FLUSH Trazodone HCl 100 mg 07/30/24 21:27 Trazodone 100 Mg Tablet PO QHS PRN PRN INSOMNIA Vancomycin Protocol 1 lab 08/05/24 09:30 Vancomycin Trough/Random Due MC 08/05/24 13:30 DAILY BINU [facility] Medical History Polysubstance abuse Substance abuse Chronic pain Seizures Insomnia Anxiety Neuropathy Opiate dependence Opiate dependence Ophthalmic herpes zoster infection Agoraphobia Fusion of lumbar spine Smoker Hypertension Fibromyalgia Lupus Hypertension Fibromyalgia Alcohol abuse SLE (systemic lupus erythematosus) Home Medications ?Medication ?Instructions ?Recorded ?Last Taken ?Type clonidine HCl 0.1 mg tablet 0.1 mg PO TID Check with primary 09/08/22 09/08/22 History doctor Allergy/AdvReac Type Severity Reaction Status Date / Time hydrocodone bitartrate (From Allergy Rash Verified 07/30/24 16:25 Vicodin) nortriptyline HCl (From Allergy Rash Verified 07/30/24 16:25 Pamelor) gabapentin AdvReac Other Verified 07/30/24 16:25 prednisone AdvReac Other Verified 07/30/24 16:25 pregabalin (From Lyrica) AdvReac Other Verified 07/30/24 16:25 zolpidem tartrate (From AdvReac Other Verified 07/30/24 16:25 Ambien) Family History Other Cancer Leukemia Surgical History History of back surgery H/O: hysterectomy Social History household members: significant other Smoking Status: Current every day smoker tobacco type: cigarettes alcohol intake: former substance use type: former substance user Review of Systems (Anesthesia) ROS Narrative System reviewed and no additional complaints, except as documented.
--- NOTE | 2024-08-03 15:39 | PCM.PN.BLA ---
Progress Note Patient is been n.p.o. for ERCP today. All questions were answered regarding patient's procedure today. Physical Exam Const alert, oriented x3, no apparent distress and healthy appearing General Appearance: cooperative GI normal to inspection, nondistended, normoactive bowel sounds, soft to palpation, non-tender and non-distended Percussion: normal to percussion Rectal Exam: deferred Assessment & Plan Assessment/Plan (1) Transaminitis: (2) Hyperbilirubinemia: (3) Leukocytosis: (4) Thrombocytosis: (5) Hyponatremia: (6) Dilated pancreatic duct: (7) Dilated bile duct: (8) Opiate abuse, continuous: (9) Nausea vomiting and diarrhea: PLAN: Plan Dilated pancreatic and bile duct with transaminitis and hyperbilirubinemia -I suspect this is either from ampullary stenosis, poor flow through the duodenum causing everything to backup versus past gallstone with acute on chronic cholecystitis. At this time she is feeling better without abdominal pain and tolerating diet. Her white blood cell count is still elevated. She may need ERCP in the future depending on how her white count trends. She did have a cholestatic hepatitis when she presented with the CT and MRCP findings makes it highly suspicious for obstructive physiology. There is also the possibility that she passed a stone. Patient still has abdominal pain and with her numbers not decreasing as expected she will undergo ERCP and possible cholecystectomy.
--- NOTE | 2024-08-03 16:00 | FLU_PTH ---
PATIENT: EMILY DELACRUZ LOC: [facility] U#:[id number] AGE/SX: 59/F ROOM: [facility] RE07/30/[address]: Dr. Leslie Starkey MD : 1965 BED: 1 DIS: 08/04/2024 SPEC #: [id number] RECD: 08/03/24 17:27 STATUS: CHRIS HORACIO #: [id number] CL: 08/03/24 16:[address]: Amilcar Tanner DEPT: CYTOLOGY RECD BY: Anthony Carrizales ENTERED: 08/04/24 06:58 SP TYPE: Fluid OTHR DR: DO Dr. Leslie Cruz MD Dr. Nicholas F Kotsonis, MD No Primary Care Phys Tissues: A - Biliary tract, NOS B - Biliary tract, NOS Procedures: Special Stain Group II Surgery Specimen Level IV Cytospin Fluid HEADER OPERATION: Endoscopic retrograde cholangiopancreatography PRE-OP DIAGNOSIS: Choledocholithiasis and biliary stricture TISSUE SUBMITTED: A- Biliary stricture brush head, B- Biliary stricture brushings DIAGNOSIS CYTOLOGY A. Biliary stricture brush head fluid for cytology (cytospins and cellblock): Negative for malignant cells. B. Biliary stricture brushings (smears): Negative for malignant cells. 08/07/2024 COMMENT Clinical correlation and appropriate follow up are necessary. CYTOLOGY STUDY Slides are reviewed. CYTOLOGY GROSS A. Received is one brush tip with 0.5cc with of light-yellow fluid labeled with the patient's name and and designated per the requisition as Biliary stricture brush head. Submitted for cytology preparation including cell block. B. Received are 3 smears labeled with the patient's name and designated per the requisition as Biliary stricture brushings. Submitted for staining. Mr 08/04/2024 TC:5 CPT: 20080,80401,47442
--- NOTE | 2024-08-03 16:51 | RAD_ITS ---
EXAM: INTRAOPERATIVE FLUOROSCOPY CLINICAL HISTORY: ERCP COMPARISON: None TECHNIQUE: 9 intraoperative images are submitted for review. 46.8 seconds of fluoroscopy 15.55 mGy FINDINGS: Contrast is injected in the biliary ducts. Mild dilatation left biliary dilatation. No right biliary ductal dilatation. Cystic duct opacifies. Filling defects are noted likely representing air. There is placement of a plastic biliary stent in the common bile duct. RAD/ERCP Biliary/Pancreas IMPRESSION: As above Reading Location: [facility]
--- NOTE | 2024-08-03 17:33 | PCM.POST.ANE ---
Anesthesia: Postop Eval I Current Vital Signs Temperature: 97.1 F Pulse Rate: 96 Blood Pressure: 149/89 Respiratory Rate: 14 Pulse Ox: 100 Oxygen Delivery Method: Room Air Assessment Airway patent: Yes Spontaneous unlabored respirations: Yes Mental status: Awake and Calm nausea: No Vomiting: No Anesthesia Complication: No Fluid Hydration Crystalloid volume administer (ml): 500 Total IV fluid infused: 500 Progress Note Anesthesia document: Postop Eval 1 completed: Yes
--- NOTE | 2024-08-03 17:34 | PCM.POSTANE2 ---
Anesthesia Postop Eval I Sum Postop Eval Completion status Anesthesia document: Postop Eval 1 completed: Yes Anesthesia Postop Eval I Summary Anesthesia Postop Eval I Summary: Anesthesia Postop Eval I: Assessment Summary Airway patent Yes 08/03/24 17:34 Spontaneous unlabored Yes 08/03/24 17:34 respirations Mental status Awake,Calm 08/03/24 17:34 nausea No 08/03/24 17:34 Vomiting No 08/03/24 17:34 Anesthesia Postop Eval I: Fluid Summary Crystalloid volume administer 500 08/03/24 17:34 (ml) Colloids volume administered ( ml) Blood Product volume administered (ml) Total IV fluid infused 500 08/03/24 17:34 Anesthesia Postop Eval I: Summary Notes Anesthesia Complication No 08/03/24 17:34 Anesthesia Complication Comment: Post-operative progress note Anesthesia: Postop Eval II Evaluation Mental status: Awake and Calm Pain Level: 0 nausea: No Vomiting: No Complications Anesthesia Complication: No
--- NOTE | 2024-08-03 18:04 | PCM.PN.BLA ---
Progress Note follow-up in office: [7 days] Patient does not take blood thinners New GI related medications for discharge: [Protonix 40 mg a day] Follow-up procedures needed: [Follow-up on biopsies from ERCP repeat ERCP with Stent removal ] Visit Charges Inpatient E&M: 52954 Subs Hosp L1
[2024-08-04 02:11] VITALS: BP 158/84; PULSE 79; RESP 16; TEMP 36.9; O2SAT 94
[2024-08-04] MEDS: Ketorolac 15 MG/ML Vial IV ×2 (05:20→12:14)
[2024-08-04] MEDS: Metoclopramide 10 MG/2 ML Vial IV (05:20)
[2024-08-04] MEDS: 0.9% Saline Lock 10 ML Syringe IV ×2 (05:20→12:13)
[2024-08-04] MEDS: Piperacil/Tazobactam 3.375 GM in 0.9% Normal Saline (50mL MB+) 50 ML IV (05:32)
[2024-08-04 05:55] VITALS: BMI 32.3
[2024-08-04 06:33] LABS: Absolute Lymphocyte Count 2.06 X10^3/uL (0.83-4.51); Absolute Neutrophil Count 9.1 X10^3/uL (2.0-7.7); Basophil# 0.09 X10^3/uL; Basophil% 0.7 % (0-1); Eosinophil# 0.64 X10^3/uL; Eosinophils% 4.8 % (0-5); Hematocrit 34.3 % (37-47); Hemoglobin 11.1 g/dL (12.0-15.0); Lymphocyte # 2.06 X10^3/ul (0.83-4.51); Lymphocyte % 15.5 % (19-41); Mean Corp Hgb Conc 32.4 g/dL (32-36); Mean Corpuscular Hgb 29.8 pg (27.0-32.0); Mean Platelet Vol. 10.9 fl (6.2-12.0); Monocyte# 1.35 X10^3/uL; Monocyte% 10.2 % (0-10); NRBC Flagged by Analyzer 0 % (0-5); Neutrophil # 9.05 X10^3/uL (2.7-7.7); Neutrophil % 68.3 % (47-70); Platelet Count 364 K/mm3 (150-450); RBC Distribution Width CV 14.6 % (11.6-14.6); RBC Distribution Width SD 48.8 fl (35.1-43.9); Red Blood Count 3.73 M/mm3 (4.2-5.4); White Blood Count 13.3 K/mm3 (4.4-11.0)
[2024-08-04 07:11] LABS: Anion Gap 10 (5-15); BUN 16 mg/dL (7-18); BUN/Creat Ratio 10.2 RATIO (10-20); Calcium,Total 8.3 mg/dL (8.5-10.1); Chloride 106 mmol/L (98-107); Creatinine, Serum 1.57 mg/dL (0.55-1.02); EST Glomerular Filtration Rate 36 mL/min (>60); Est Glom Filt Rate - Afr Amer 43 mL/min (>60); Estimated Creatinine Clearance 37.38 ml/min; Glucose 119 mg/dL (74-106); Potassium 3.1 mmol/L (3.5-5.1); Sodium Level 138 mmol/L (136-145)
[2024-08-04 08:01] VITALS: BP 165/93; PULSE 84; RESP 16; TEMP 36.8; O2SAT 94
[2024-08-04 08:06] VITALS: BP 165/93; PULSE 84
[2024-08-04] MEDS: amLODIPine 10 MG Tablet PO (08:06)
[2024-08-04] MEDS: Metoprolol Tartrate 25 MG Tablet PO (08:06)
[2024-08-04] MEDS: Potassium Chloride Oral Tablet 20 MEQ 40 MEQ PO (08:06)
[2024-08-04] MEDS: Acetaminophen 325 MG Tablet 650 MG PO (08:12)
[2024-08-04] MEDS: Pantoprazole Sodium 40 MG Tablet PO (08:12)
--- NOTE | 2024-08-04 08:53 | OP.ERCP_ITS ---
Patient Name: Janina Chen Procedure Date: 08/03/2024 3:52 PM Date of : 1965 Age: 59 Procedure: ERCP Indications: Common bile duct stricture, Abdominal pain of suspected biliary origin, Jaundice, Elevated liver enzymes Providers: Amilcar Tanner DO Medicines: See the Anesthesia note for documentation of the administered medications Patient Profile: This is a 59 year old female. Refer to note in patient chart for documentation of history and physical. Patient has symptoms of acute right upper quadrant abdominal pain and acute jaundice. Complications: No immediate complications. Procedure: Pre-Anesthesia Assessment: - Prior to the procedure, a History and Physical was performed, and patient medications and allergies were reviewed. The patient is competent. The risks and benefits of the procedure and the sedation options and risks were discussed with the patient. All questions were answered and informed consent was obtained. Patient identification and proposed procedure were verified by the nurse in the pre-procedure area. Mental Status Examination: normal. Airway Examination: normal oropharyngeal airway and neck mobility. Respiratory Examination: clear to auscultation. CV Examination: normal. ASA Grade Assessment: II - A patient with mild systemic disease. After reviewing the risks and benefits, the patient was deemed in satisfactory condition to undergo the procedure. The anesthesia plan was to use general anesthesia. Immediately prior to administration of medications, the patient was re-assessed for adequacy to receive sedatives. The heart rate, respiratory rate, oxygen saturations, blood pressure, adequacy of pulmonary ventilation, and response to care were monitored throughout the procedure. The physical status of the patient was re-assessed after the procedure. After obtaining informed consent, the scope was passed under direct vision. Throughout the procedure, the patient's blood pressure, pulse, and oxygen saturations were monitored continuously. The Duodenoscope was introduced through the mouth, and advanced to the duodenum and used to inject contrast into the bile duct. Scope In: 4:55:55 PM Scope Out: 5:09:10 PM Total Procedure Duration Time 0 hours 13 minutes 15 seconds Findings: The leather coverer film was normal. The esophagus was successfully intubated under direct vision. The scope was advanced to a normal major papilla in the descending duodenum without detailed examination of the pharynx, larynx and associated structures, and upper GI tract. The upper GI tract was grossly normal. The bile duct was deeply cannulated with the short-nosed traction sphincterotome. Contrast was injected. I personally interpreted the bile duct images. There was brisk flow of contrast through the ducts. Image quality was adequate. Contrast extended to the entire biliary tree. Opacification of the entire opacified area, main bile duct, common bile duct, cystic duct, common hepatic duct, hepatic duct bifurcation, left and right hepatic ducts and all intrahepatic branches and entire biliary tree was successful. The maximum diameter of the ducts was 9 mm. The lower third of the main bile duct and middle third of the main bile duct contained multiple stones, the largest of which was 6 mm in diameter. The main bile duct was diffusely dilated, with a stone causing an obstruction. The largest diameter was 5 mm. A long 0.025 inch Jagwire was passed into the biliary tree. A 5 mm biliary sphincterotomy was made with a traction (standard) sphincterotome using ERBE electrocautery. There was no post-sphincterotomy bleeding. The biliary tree was swept with a 12 mm balloon starting at the upper third of the main bile duct, middle third of the main bile duct, lower third of the main duct, bifurcation, left intrahepatic duct(s), left main hepatic duct, right intrahepatic duct(s) and right main hepatic duct. Sludge was swept from the duct. All stones were removed. Cells for cytology were obtained by brushing in the lower third of the main bile duct and the hepatic duct bifurcation. One 10 Fr by 5 cm temporary stent with a single external flap and a single internal flap was placed 5 cm into the common bile duct. Bile flowed through the stent. The stent was in good position. Impression: - The entire main bile duct was dilated, with a stone causing an obstruction. - Choledocholithiasis was found. Complete removal was accomplished by biliary sphincterotomy and balloon extraction. - A biliary sphincterotomy was performed. - The biliary tree was swept. - Cells for cytology obtained in the lower third of the main duct and at the hepatic duct bifurcation. - One temporary stent was placed into the common bile duct. Procedure Code(s): --- Professional --- 71406, Endoscopic retrograde cholangiopancreatography (ERCP); with placement of endoscopic stent into biliary or pancreatic duct, including pre- and post-dilation and guide wire passage, when performed, including sphincterotomy, when performed, each stent [id number], Endoscopic retrograde cholangiopancreatography (ERCP); with removal of calculi/debris from biliary/pancreatic duct(s) 99121, 26, Endoscopic catheterization of the biliary ductal system, radiological supervision and interpretation CPT copyright 2021 [employer]. All rights reserved. The codes documented in this report are preliminary and upon sales marketing manager review may be revised to meet current compliance requirements. Amilcar Tanner DO 08/04/2024 8:53:31 AM This report has been signed electronically. Number of Addenda: 0 Note Initiated On: 08/03/2024 3:52 PM
--- NOTE | 2024-08-04 08:54 | OP.CCLET_ITS ---
08/04/2024 No Primary Care Physician Re : ERCP procedure for Janina Chen Dear Care Physician This procedure was performed on July. My impressions and recommendations are as follows: Impressions : - The entire main bile duct was dilated, with a stone causing an obstruction. - Choledocholithiasis was found. Complete removal was accomplished by biliary sphincterotomy and balloon extraction. - A biliary sphincterotomy was performed. - The biliary tree was swept. - Cells for cytology obtained in the lower third of the main duct and at the hepatic duct bifurcation. - One temporary stent was placed into the common bile duct. Recommendations : My findings are described in the full procedure note, which is enclosed. If I can be of further assistance, please feel free to contact me at . Sincerely, Amilcar Tanner, 08/04/2024 8:53:31 AM This report has been signed electronically.
[2024-08-04 10:00] VITALS: BP 151/74; PULSE 82; RESP 16; TEMP 36.6; O2SAT 97
--- NOTE | 2024-08-04 10:38 | DCINST_ITS ---
Discharge Instructions Diet Discharge Diet: Low fat / Low cholesterol DC O2, CPAP, BIPAP needs Home O2 Discharge instructions: No Dressing / Incision Discharge Activity: Return to Normal Activity Weight Bearing Status: Weight bearing as tolerated Dressing / Incision Call your doctor if you observe: Fever of 101 or Higher, Shortness of breath, Dizziness, Swelling in the ankles and Chest pain Follow Up Care Test Results: Test results from this visit will be discussed in further detail at your follow- up appointment, if applicable. Discharge Plan Admission Admit Date/Time: 07/30/24 20:12 Primary Reason for Your Visit: hyperbilirubinemia Attending Provider: Leslie Starkey Primary Care Provider: Care Physician,No Primary Consulting Providers: Smitha Smith; Aubrey Agarwal Instructions Patient Instructions: Liver Problems Signs Ch Discharge Orders/Prescriptions Prescriptions: New amlodipine 10 mg Tablet 10 mg PO DAILY Qty: 30 2RF metoprolol tartrate 25 mg Tablet 25 mg PO BID Qty: 60 2RF Discontinued clonidine HCl 0.1 mg tablet 0.1 mg PO TID Referrals / Follow Up: Magdalena Rodriguez MD [Med Staff - Active Staff] - Within 1 Week (see to establish PCP care and to get repeat BMP within 1-2 weeks to trend Cr) Amilcar Tanner DO [Med Staff - Active Staff] - Within 2 Weeks Care Physician,No Primary [Primary Care Provider] - Disposition Disposition (needs filled in before D/C Order can be placed): Home, Self Care
--- NOTE | 2024-08-04 10:41 | PCM.DC.SUM ---
Providers Date of Admission: 07/30/24 Date of Discharge: 08/04/24 Primary Care Physician: Poppy Primary Care Phys Consultations 07/30/24 21:27 Consult: Gastroenterology Routine Consulting Provider: Curt G[facility] Reason for Consult: dilated pancreatic duct EMERGENT Consult: No MD Notified: Yes Date Notified: 07/31/24 Time Notified: 06:51 Method of Notification: Text Reason For Visit: ILEUS DILATED PANCREATIC DUCT FENTANYL WITHDRAWAL Diagnosis Discharge Diagnosis (1) Transaminitis: Status: Acute Code(s): R74.01 - Elevation of levels of liver transaminase levels (2) Hyperbilirubinemia: Status: Acute Code(s): E80.6 - Other disorders of bilirubin metabolism (3) Leukocytosis: Status: Acute Code(s): D72.829 - Elevated white blood cell count, unspecified (4) Thrombocytosis: Status: Acute Code(s): D75.839 - Thrombocytosis, unspecified (5) Hyponatremia: Status: Acute Code(s): E87.1 - Hypo-osmolality and hyponatremia (6) Dilated pancreatic duct: Status: Acute Code(s): K86.89 - Other specified diseases of pancreas (7) Dilated bile duct: Status: Acute Code(s): K83.8 - Other specified diseases of biliary tract (8) Opiate abuse, continuous: Status: Acute Code(s): F11.10 - Opioid abuse, uncomplicated (9) Nausea vomiting and diarrhea: Status: Acute Code(s): R11.2 - Nausea with vomiting, unspecified; R19.7 - Diarrhea, unspecified Plan #Hyperbilirubinemia and elevated liver enzymes In the setting of dilated pancreatic and common bile duct. Also has ileus. nausea and vomiting have improved. C diff negative MRCP showed no evidence of obstruction on IV vacnomycin and zosyn GI on board. Liver enzymes trending donwards could not have ERCP yesterday. To have it done today patient says she will want to have cholecystectomy on outpatient basis if needed. #elevated Cr: Cr is 1.21 today. Was 0.66 yesterday. Should improve with IV hydration. Likely due to decreased intake as she was NPO all of yesterday awaiting ERCP. # History of opioid abuse Was placed on opioid withdrawal protocol. Follow-up at 180 on outpatient basis. #History of anxiety and depression as well as benzodiazepine abuse Has had withdrawal seizures from benzodiazepines in the past. Currently not any medications for anxiety and depression. Follow-up with PCP on outpatient basis. #Hypertension BP has been elevated during this admission. Started on PO amlodipine and PO metoprolol. IV hydralazine prn. #Hypokalemia: Potassium is 3.4 today. Will replace and trend. DVT prophylaxis: Lovenox Medications at Discharge Home Medications amlodipine 10 mg tablet 10 mg PO DAILY #30 tabs 08/04/24 metoprolol tartrate 25 mg tablet 25 mg PO BID #60 tabs 08/04/24 Hospital Course Operations None Procedures - (ERCP) Summary of Care Provided Minutes Spent on Discharge: 45 Hospital Course: Patient is a 59-year-old female with a past medical history as outlined was admitted through the ED on 07/30/2024 for acute opioid detox. She also admitted to some nausea and vomiting and diarrhea with about 5-6 loose stools daily since the week before admission. She also had some epigastric pain and also complained of dry heaving. She had mid admitted for acute opioid detox from July 14, 2024 and left AMA on July 15, 2024. She was using 2 g of fentanyl daily. On admission she had elevated total bilirubin of 3.1 with ALT of 157, ALP elevated at 570 and AST of 258. Urinalysis showed no evidence of UTI and urine tox screen showed amphetamines and MDMA. CT of the abdomen and pelvis showed distention of the common bile duct, main pancreatic duct and gallbladder with no evidence of gallstone or lesion and there was distention of the C-loop of the duodenum without a transition point suspicious for ileitis and enlarged lymph loads in the hepatic hilar region which were nonspecific. She was admitted and managed for hyperbilirubinemia and transaminitis in the setting of dilated pancreatic and bile duct as well as ileitis. She was kept NPO. Gastroenterology was consulted. Stool enteric panel was negative. She had MRCP which showed no evidence of obstruction. She was placed on IV vancomycin and Zosyn. Liver enzymes started trending downwards. She had ERCP which showed dilatation of the entire main bile duct with a stone causing obstruction and evidence of choledocholithiasis. There was complete removal by biliary sphincterotomy and balloon extraction and cells for cytology were obtained in the lower part of the main duct. 1 temporary stent was placed into the common bile duct. Patient remained stable afterwards. Creatinine was elevated at 1.57 on the day of discharge. Patient was hydrated with IV fluids and plan was to repeat the BMP but patient refused blood work and threatening to sign out AMA. Patient was counseled to follow-up with PCP for recheck of her BMP within 1 week to trend the creatinine and was encouraged to remain well-hydrated. She is follow-up with her PCP and with gastroenterology within 1 to 2 weeks. Patient seen and examined prior to discharge. She had no active complaints. Review of systems otherwise negative. He was eager to be discharged. Labs and vitals reviewed. Home medication reviewed and reconciled. Physical Exam Const alert, oriented x3, no apparent distress, average body habitus, healthy appearing and well nourished General Appearance: cooperative, comfortable and well developed Orientation / Consciousness: awake Exam Limitations: no limitations HEENT normocephalic, head/scalp atraumatic, hearing grossly normal bilaterally, moist oral mucous membranes, oropharynx normal and gingiva normal Eyes PERRL, EOMs intact bilaterally and conjunctivae normal Eyes Narrative: Mild scleral icterus Neck no lymphadenopathy and supple Lymph Lymphatic: no lymphadenopathy noted and no lymphedema noted Resp normal respiratory effort, normal air movement, no retractions, no use of accessory muscles and clear to auscultation bilaterally Auscultation: wheezes; Negative for rales or rhonchi Cardio regular rate, regular rhythm, S1 normal heart sound, S2 normal heart sound, no murmurs, no rub, no gallops and no clicks Peripheral Pulses: pulses 2+ throughout GI normal to inspection, nondistended, normoactive bowel sounds, soft to palpation, non-tender and non-distended Extremity normal to inspection, full ROM, normal capillary refill, no clubbing, cyanosis or edema and no calf tenderness General Extremity: no tenderness to palpation of joints or extremities Skin no rashes or lesions noted, skin turgor normal, no petechiae and no mottling Skin Narrative: Skin tenting General Skin Exam: no breakdown Neuro oriented x3, CN's II-XII intact bilaterally, moves all extremities, no focal motor deficits and no sensory deficits noted Speech: speech normal Motor Exam: strength 5/5 throughout and general weakness Psych thought process normal, cooperative and affect normal Psych Narrative: Pleasant interacts appropriately Appearance: appropriate Weight / BMI Weight Weight: 176 lb 12.972 oz Body Mass Index (BMI) 32.3 ABG / Lab / Microbiology Data 08/04/24 05:17 08/04/24 05:17 Laboratory: Laboratory Results - last 24 hr 08/04/24 05:17: WBC 13.3 H, RBC 3.73 L, Hgb 11.1 L, Hct 34.3 L, MCV 92.0, MCH 29.8, MCHC 32.4, RDW Std Deviation 48.8 H, RDW Coeff of Anatoliy 14.6, Plt Count 364, MPV 10.9, Immature Gran % (Auto) 0.500, Neut % (Auto) 68.3, Lymph % (Auto) 15.5 L, [place] % (Auto) 10.2 H, Eos % (Auto) 4.8, Baso % (Auto) 0.7, Absolute Neuts (auto) 9.1 H, Absolute Lymphs (auto) 2.06, Nucleated RBC % 0, Sodium 138, Potassium 3.1 L, Chloride 106, Carbon Dioxide 22.0, Anion Gap 10, BUN 16, Creatinine 1.57 H, Estim Creat Clear Calc 37.38, Est GFR (MDRD) Af Amer 43 L, Est GFR (MDRD) Non-Af 36 L, BUN/Creatinine Ratio 10.2, Glucose 119 H, Calcium 8.3 L Microbiology: Microbiology 07/30/24 19:15 Blood Culture (Wb) - Anticubital Right Blood Culture - Preliminary No growth in 48 hours. 07/30/24 18:56 Blood Culture (Wb) - Anticubital Right Blood Culture - Preliminary No growth in 48 hours. 07/30/24 22:00 Stool Stool Lactoferrin - Final 07/30/24 22:00 Stool Enteric Bacteriology - Final 07/30/24 22:00 Stool Clostridioides difficile (PCR) - Final Radiography Diagnostic Testing: Radiology Impression Endo Retro Cholangiopancreatogram 08/03/24 16:51 IMPRESSION: As above Reading Location: [facility] Instructions Discharge Diet: Low fat / Low cholesterol Discharge Activity: Return to Normal Activity Weight Bearing Status: Weight bearing as tolerated Call your doctor if you observe: Fever of 101 or Higher, Shortness of breath, Dizziness, Swelling in the ankles and Chest pain DC O2, CPAP, BIPAP Needs Home O2 Discharge instructions: No DC home with Oxygen: No Meaningful Use Info Meaningful Use Meaningful Use Diagnoses (Choose all that apply): None applicable Ischemic Stroke Statin Dosing Therapy Reference: STATIN DOSE THERAPY REFERENCE: * Patients > 75 years receive moderate or high dose statin therapy. * Patients 75 years or YOUNGER should receive HIGH intensity statin dose unless contraindicated. You will be required to document reason for non-treatment if statin daily dose does not meet guidelines. HIGH DOSE STATIN THERAPY DAILY Atorvastatin > than or = to 40 mg Rosuvastatin > than or = to 20 mg Amlodipine + Atorvastatin > than or = to 2.5/40 mg Ezetimibe + Simvastatin 10/80 mg Simvastatin 80mg Discharge Plan Admission Admit Date/Time: 07/30/24 20:12 Primary Reason for Your Visit: hyperbilirubinemia Attending Provider: Leslie Starkey Primary Care Provider: Care Physician,No Primary Consulting Providers: Smitha Smith; Aubrey Agarwal Instructions Patient Instructions: Liver Problems Signs Ch Discharge Orders/Prescriptions Prescriptions: New amlodipine 10 mg Tablet 10 mg PO DAILY Qty: 30 2RF metoprolol tartrate 25 mg Tablet 25 mg PO BID Qty: 60 2RF Discontinued clonidine HCl 0.1 mg tablet 0.1 mg PO TID Referrals / Follow Up: Magdalena Rodriguez MD [Med Staff - Active Staff] - Within 1 Week (see to establish PCP care and to get repeat BMP within 1-2 weeks to trend Cr) Amilcar Tanner DO [Med Staff - Active Staff] - Within 2 Weeks Care Physician,No Primary [Primary Care Provider] - Disposition Disposition (needs filled in before D/C Order can be placed): Home, Self Care Charges/Coding Visit Charges Inpatient E&M: 52913 Disch Hosp >30min
[2024-08-04] MEDS: 0.9% Normal Saline (500mL Bag) 500 ML IV ×2 (10:58→12:18)
[2024-08-04 11:31] VITALS: PULSE 77
--- NOTE | 2024-08-04 12:47 | NURSING ---
Very anxious to leave. Originally agreeable to plan but now saying she will not stay for additional fluids and blood work. Offered anxiety med and pt refused. Adamant that she is leaving. Dr. Starkey updated and states Discharge has already been complete so OK for patient to leave if she chooses.
== END 2024-08-04 13:35 | disposition home or self-care (01) | DRG 445 ==
LOC: ED 20:39 → PCU 07-31 03:33
PROVIDERS: Family Medicine; Internal Medicine Gastroenterology; Nurse Practitioner; Admitting Provider Internal Medicine; Emergency Provider Emergency Medicine; Visit Provider Student in an Organized Health Care Education/Training Program
PROC: 0FC98ZZ Extirpation of Matter from Common Bile Duct, Via Natural or Artificial Opening Endoscopic (ICD-10-PCS; CPT 43260; principal; 2024-08-03 15:40)
DX: K80.51 Calculus of bile duct without cholangitis or cholecystitis with obstruction (principal); K56.7 Ileus, unspecified; E87.1 Hypo-osmolality and hyponatremia; Z66 Do not resuscitate; J44.9 Chronic obstructive pulmonary disease, unspecified; F11.10 Opioid abuse, uncomplicated; I10 Essential (primary) hypertension; F32.A Depression, unspecified; K83.8 Other specified diseases of biliary tract; E86.1 Hypovolemia; M54.50 Low back pain, unspecified; M79.7 Fibromyalgia; F17.210 Nicotine dependence, cigarettes, uncomplicated; E87.6 Hypokalemia; D72.829 Elevated white blood cell count, unspecified; E80.6 Other disorders of bilirubin metabolism; D75.839 Thrombocytosis, unspecified; F41.9 Anxiety disorder, unspecified; R74.01 Elevation of levels of liver transaminase levels; Z90.710 Acquired absence of both cervix and uterus; G89.29 Other chronic pain; Z79.891 Long term (current) use of opiate analgesic; G47.00 Insomnia, unspecified; F40.00 Agoraphobia, unspecified
CPT/HCPCS: 36415; 74177; 74181; 74330; 76000; 80048; 80053; 80202; 80307; 81001; 82077; 82378; 83605; 83630; 83735; 84100; 84145; 84443; 85025; 85610; 85652; 86141; 86301; 87040; 87493; 87506; 88108; 88305; 88313; 93005; 94668; 97802; 99252; 99284; Q9967; A4216; G0463; J2405

== ENCOUNTER 2024-08-05 08:48 | Emergency (ER) | payer MEDICARE, SELFPAY ==
[2024-08-05 08:49] VITALS: BP 159/106; PULSE 115; RESP 18; TEMP 37; O2SAT 98; BMI 29.2
--- NOTE | 2024-08-05 09:03 | ED.VIS.GI ---
HPI HPI - GI History of Present Illness Chief Complaint: Abd Pain Informant: patient Narrative Narrative: 59-year-old female presenting with upper abdominal pain, nausea, vomiting, diarrhea. She was discharged from the hospital yesterday afternoon and an hour or 2 after getting home after eating some broth which she was eating in the hospital, she started having the symptoms and they have been persistent all evening and overnight into this morning, the diarrhea is less now. Pain radiates straight through into her back, bilaterally. She states she was having episodes of this for several months, triggered by fatty foods which she tried to stop but she was high on fentanyl all the time so she was having trouble registering all the details until she was admitted recently for detox and she was discharged yesterday. During her admission they diagnosed her with gallstones and she ended up having a biliary stent placed but she is not sure where to go from here or what the general plan is. [facility] Medical History Polysubstance abuse Substance abuse Chronic pain Seizures Insomnia Anxiety Neuropathy Opiate dependence Opiate dependence Ophthalmic herpes zoster infection Agoraphobia Fusion of lumbar spine Smoker Hypertension Fibromyalgia Lupus Hypertension Fibromyalgia Alcohol abuse SLE (systemic lupus erythematosus) Home Medications ?Medication ?Instructions ?Recorded ?Last Taken ?Type amlodipine 10 mg tablet 10 mg PO DAILY #30 tabs 08/04/24 Unknown Rx metoprolol tartrate 25 mg tablet 25 mg PO BID #60 tabs 08/04/24 Unknown Rx cefdinir 300 mg capsule 300 mg PO BID #20 caps 08/05/24 Unknown Rx metoclopramide HCl 10 mg tablet 10 mg PO Q6H PRN nausea and 08/05/24 Unknown Rx vomiting #20 tabs metronidazole 500 mg tablet 500 mg PO BID #20 tabs 08/05/24 Unknown Rx Allergy/AdvReac Type Severity Reaction Status Date / Time hydrocodone bitartrate (From Allergy Rash Verified 07/30/24 16:25 Vicodin) nortriptyline HCl (From Allergy Rash Verified 07/30/24 16:25 Pamelor) gabapentin AdvReac Other Verified 07/30/24 16:25 prednisone AdvReac Other Verified 07/30/24 16:25 pregabalin (From Lyrica) AdvReac Other Verified 07/30/24 16:25 zolpidem tartrate (From AdvReac Other Verified 07/30/24 16:25 Ambien) Family History Other Cancer Leukemia Surgical History History of back surgery H/O: hysterectomy Social History household members: significant other Smoking Status: Current every day smoker tobacco type: cigarettes alcohol intake: former substance use type: former substance user ROS ROS ED Constitutional Constitutional ED: Denies chills or fever(s) Eyes Eyes: Denies change in vision or diplopia ENT ENT ED: Denies rhinorrhea or sore throat Cardiovascular Cardiovascular: Denies chest pain or palpitations Respiratory/Chest Respiratory/Chest: Denies cough or dyspnea Gastrointestinal Gastrointestinal: Reports abdominal pain, diarrhea, nausea and vomiting; Denies hematemesis, hematochezia or melena Genitourinary Genitourinary ED: Denies dysuria or hematuria Musculoskeletal Musculoskeletal: Denies back pain or neck pain Integumentary Denies abscess or rash Neurologic Neurologic: Denies headache(s), paresthesias or weakness Psychiatric Psychiatric: Denies anxiety or suicidal thoughts EXAM Physical Exam Const Vital Signs: 08/05/24 08:49 08/05/24 11:00 08/05/24 13:00 Temperature 98.6 F Temperature Source Temporal Pulse Rate 115 H 107 H 98 Respiratory Rate 18 16 20 H Blood Pressure 159/106 H 205/98 H 188/81 H Blood Pressure Mean 123 133 116 Pulse Ox 98 97 99 Oxygen Delivery Method Room Air Room Air Room Air 08/05/24 15:33 Temperature Temperature Source Pulse Rate 86 Respiratory Rate 18 Blood Pressure 165/84 H Blood Pressure Mean 111 Pulse Ox 94 Oxygen Delivery Method Room Air Positive well nourished and well developed General Appearance ED: well developed and NAD HEENT Reports moist mucous membranes normocephalic and atraumatic Eyes PERRL and EOMs intact bilaterally Neck full ROM and supple Resp normal respiratory effort and clear to auscultation bilaterally Cardio regular rate, regular rhythm and no murmurs GI non-distended GI Narrative: Tender epigastrium mostly, less tender right upper quadrant negative Garsia, otherwise benign abdomen. No guarding or rebound. No pulsatile masses. Auscultation: normoactive bowel sounds Palpation: soft Back/Spine no CVA tenderness General Back: other FROM Extremity normal to inspection General Extremety ED: Negative for edema, pulses abnormal or tenderness General Extremity: Negative for edema or pulses abnormal Neuro oriented x3, CN's II-XII intact bilaterally and no sensory deficits noted Sensorium / Orientation: awake and alert Motor Exam: strength 5/5 throughout Skin no rashes or lesions noted and no wounds MDM MDM MDM Narrative Medical decision making narrative: Patient is well-appearing with some epigastric tenderness and symptoms that may represent biliary colic. I did some cursory review of her prior admission, including her MRCP and the fact that she had a biliary stent placed; the MRCP showed suspicion of cholelithiasis and they were not able to rule out cholecystitis based on that image alone, it did not show choledocholithiasis but when the patient had the ERCP there indeed was an obstructing stone that was removed via sphincterotomy and therefore stent was placed with follow-up advised in the next 1 or 2 weeks with GI. She did not have an ultrasound. I reviewed the labs and then compared those to the ones we obtained today while we treated her with IV fluids, Reglan, Toradol. Afterwards, patient is feeling much better. She states her pain is gone her nausea is better. Her blood pressure was elevated around 200, she states she was just prescribed 2 new blood pressure medications and she has yet to pick them up from the pharmacy. Before giving her anything I rechecked it, she is 170s systolic. I ordered her doses of her 2 new medications amlodipine and metoprolol tartrate. Looking at her labs, her liver enzymes have normalized except for alkaline phosphatase, with total bilirubin down down to the normal range at 0.8. However her leukocytosis is worsening slightly compared to the most recent, however not near the 27 white blood count that she had at admission. Her creatinine is also trending a little higher. She states she has been drinking fluids, we gave her a liter of IV fluids anyway. So to evaluate for cholecystitis I sent her for an ultrasound, and reexamined her, nontender right upper quadrant. I reviewed the ultrasound images and the result which I agree with, it shows some gallbladder wall thickening, stones, with a stone in the neck, no pericholecystic fluid or obvious inflammatory changes and negative sonographic Garsia but not able to rule out possible cholecystitis. Discussed all this with surgery Dr. Plata, who agrees patient does not need emergency surgery, and given her recent detox would recommend and cholecystectomy at a later date if possible, certainly the patient is not septic and she is currently pain-free. Surgeon recommends antibiotics to help cool things off and gale off possible early acute cholecystitis which the patient does not definitively have especially without any pain now. GI not available this weekend for consultation. Therefore given her a dose of IV antibiotics here ceftriaxone 1 g, I gave her something to eat, and observed her for a little while. She had no recurrence of her pain and felt well. We discussed admission or discharge, she prefers to be discharged and I think that is reasonable since she is pain-free even after eating. She understands reasons to return specially if she gets into more pain that will not go away. Discharging her on cefdinir and metronidazole and follow-up instructions given. History & Record Review Additional record(s) reviewed:: Prior inpatient record Lab Data Attestation: I reviewed the patient's lab results. Labs: Laboratory Results - last 24 hr 08/05/24 09:32 WBC 15.9 H RBC 3.68 L Hgb 11.1 L Hct 33.8 L MCV 91.8 MCH 30.2 MCHC 32.8 RDW Std Deviation 48.4 H RDW Coeff of Anatoliy 14.3 Plt Count 360 MPV 10.5 Immature Gran % (Auto) 0.700 Neut % (Auto) 72.8 H Lymph % (Auto) 15.4 L Oliver % (Auto) 7.6 Eos % (Auto) 2.8 Baso % (Auto) 0.7 Absolute Neuts (auto) 11.5 H Absolute Lymphs (auto) 2.44 Nucleated RBC % 0 Sodium 139 Potassium 3.2 L Chloride 106 Carbon Dioxide 23.0 Anion Gap 10 BUN 26 H Creatinine 1.94 H Estim Creat Clear Calc 28.77 Est GFR (MDRD) Af Amer 34 L Est GFR (MDRD) Non-Af 28 L BUN/Creatinine Ratio 13.4 Glucose 118 H Calcium 9.1 Total Bilirubin 0.80 AST 28 ALT 47 Alkaline Phosphatase 320 H Total Protein 7.1 Albumin 2.9 L Globulin 4.2 Albumin/Globulin Ratio 0.7 L Lipase 109 Radiography Diagnostic Testing: Clinical Impression(s) from Imaging Studies Abdomen Ultrasound 08/05/24 12:07 IMPRESSION: Cholelithiasis with gallbladder wall thickening concerning for acute cholecystitis despite negative sonographic Garsia's sign. Reading Location: [facility] Discharge Plan Triage Chief Complaint: Abd Pain ED Provider: Alex Lewis Dx/Rx/DC Orders Clinical Impression: Acute upper abdominal pain, Cholelithiasis Instructions: ED Gallstones with Biliary Colic Prescriptions: New cefdinir 300 mg capsule 300 mg PO BID Qty: 20 0RF metronidazole 500 mg tablet 500 mg PO BID Qty: 20 0RF metoclopramide HCl 10 mg tablet 10 mg PO Q6H PRN (Reason: nausea and vomiting) Qty: 20 0RF No Action amlodipine 10 mg Tablet 10 mg PO DAILY Qty: 30 2RF metoprolol tartrate 25 mg Tablet 25 mg PO BID Qty: 60 2RF Primary Care Provider: Care Physician,No Primary Referrals: Friend,DO Amilcar [Med Staff - Active Staff] - 1-2 Weeks (call to make appt) Sammy Plata MD [Med Staff - Active Staff] - (next week - call for appt) Print Language: Czech Disposition Disposition: Home, Self Care
[2024-08-05] MEDS: Ketorolac 30 MG/ML Syringe 15 MG IV (09:27)
[2024-08-05] MEDS: Metoclopramide 10 MG/2 ML Vial 5 MG IV (09:27)
[2024-08-05] MEDS: 0.9% Normal Saline (500mL Bag) 500 ML 999 ML IV (09:28)
[2024-08-05 09:41] LABS: Absolute Lymphocyte Count 2.44 X10^3/uL (0.83-4.51); Absolute Neutrophil Count 11.5 X10^3/uL (2.0-7.7); Basophil# 0.11 X10^3/uL; Basophil% 0.7 % (0-1); Eosinophil# 0.45 X10^3/uL; Eosinophils% 2.8 % (0-5); Hematocrit 33.8 % (37-47); Hemoglobin 11.1 g/dL (12.0-15.0); Lymphocyte # 2.44 X10^3/ul (0.83-4.51); Lymphocyte % 15.4 % (19-41); Mean Corp Hgb Conc 32.8 g/dL (32-36); Mean Corpuscular Hgb 30.2 pg (27.0-32.0); Mean Corpuscular Volume 91.8 fL (81-99); Mean Platelet Vol. 10.5 fl (6.2-12.0); Monocyte% 7.6 % (0-10); NRBC Flagged by Analyzer 0 % (0-5); Neutrophil # 11.54 X10^3/uL (2.7-7.7); Neutrophil % 72.8 % (47-70); Platelet Count 360 K/mm3 (150-450); RBC Distribution Width CV 14.3 % (11.6-14.6); RBC Distribution Width SD 48.4 fl (35.1-43.9); Red Blood Count 3.68 M/mm3 (4.2-5.4); White Blood Count 15.9 K/mm3 (4.4-11.0)
[2024-08-05 09:56] LABS: ALB/GLOB Ratio 0.7 RATIO (0.9-2.4); AST(SGOT) 28 U/L (15-37); Alanine Aminotransfer ALT/SGPT 47 U/L (13-56); Albumin, Serum 2.9 g/dL (3.2-5.0); Alkaline Phosphatase 320 U/L (45-117); Anion Gap 10 (5-15); BUN 26 mg/dL (7-18); BUN/Creat Ratio 13.4 RATIO (10-20); Calcium,Total 9.1 mg/dL (8.5-10.1); Chloride 106 mmol/L (98-107); Creatinine, Serum 1.94 mg/dL (0.55-1.02); EST Glomerular Filtration Rate 28 mL/min (>60); Est Glom Filt Rate - Afr Amer 34 mL/min (>60); Estimated Creatinine Clearance 28.77 ml/min; Globulin 4.2 g/dL (2.2-4.2); Glucose 118 mg/dL (74-106); Lipase 109 U/L (73-393); Potassium 3.2 mmol/L (3.5-5.1); Protein, Total 7.1 g/dL (6.4-8.2); Sodium Level 139 mmol/L (136-145)
[2024-08-05 11:00] VITALS: BP 205/98; PULSE 107; RESP 16; O2SAT 97
--- NOTE | 2024-08-05 12:07 | US_ITS ---
PROCEDURE: ABDOMEN LIMITED REASON FOR EXAM: Pain, stones, leukocytosis COMPARISON: None FINDINGS: Liver: Measures 15 cm and normal echotexture Gallbladder: Multiple stones with possible stone in gallbladder neck.. Wall measures 6 mm. Negative sonographic Garsia's sign. No pericholecystic fluid. Common bile duct: 5.5 mm with stent . Pancreas: Visualized portions are sonographically unremarkable. Right kidney: 11.2 x 5.0 x 5.0 cm. US/Abdomen Limited IMPRESSION: Cholelithiasis with gallbladder wall thickening concerning for acute cholecysti tis despite negative sonographic Garsia's sign. [facility]
[2024-08-05] MEDS: Metoprolol Tartrate 25 MG Tablet PO (12:43)
[2024-08-05] MEDS: amLODIPine 10 MG Tablet PO (12:43)
[2024-08-05 13:00] VITALS: BP 188/81; PULSE 98; RESP 20; O2SAT 99
[2024-08-05 15:33] VITALS: BP 165/84; PULSE 86; RESP 18; O2SAT 94
[2024-08-05] MEDS: Ceftriaxone 1 GM/50 ML BAG IV (15:40)
[2024-08-05 16:04] VITALS: BP 165/84; PULSE 82; RESP 16; TEMP 37; O2SAT 97
== END 2024-08-05 16:25 | disposition home or self-care (01) ==
PROVIDERS: Emergency Provider Emergency Medicine; Visit Provider Emergency Medicine
DX: R10.10 Upper abdominal pain, unspecified (principal); K80.20 Calculus of gallbladder without cholecystitis without obstruction; I10 Essential (primary) hypertension; Z90.710 Acquired absence of both cervix and uterus; F17.210 Nicotine dependence, cigarettes, uncomplicated; R19.7 Diarrhea, unspecified; M79.7 Fibromyalgia
CPT/HCPCS: 76705; 80053; 83690; 85025; 96361; 96365; 96375; 99284; A4216

== ENCOUNTER 2024-09-30 12:12 | Inpatient (IN) | payer MEDICARE, SELFPAY ==
[2024-09-30] VITALS (7 sets, daily range): BP systolic 162–187; BP diastolic 87–114; PULSE 75–93; RESP 16–18; TEMP 36.6–36.7; O2SAT 94–98; BMI 26.9
--- NOTE | 2024-09-30 12:22 | EDS_ITS ---
HPI History of Present Illness Chief Complaint: Substance Abuse Informant: patient Onset/Context/Timing Onset: Days (4) Context: Gradual Onset Timing: Continuous Worsened by: Nothing Relieved by: Nothing Associated Symptoms Associated Symptoms: Positive for vomiting*, diarrhea*, palpatations and no; Negative for fever*, rash*, seizure, tremor, trauma, suicidal ideation or homicidal ideation Narrative Narrative: Patient presents requesting detox from fentanyl. Patient states her last use was 4 days ago. Patient states she was recently admitted for detox 1 to 2 months ago. Patient states that she started using again 3 weeks ago. Patient states she uses 1 g of fentanyl every 2 to 3 days. Patient admits to some nausea, vomiting, and diarrhea. Patient admits to some palpitations. Patient denies any suicidal homicidal ideations. Prior similar symptoms: Yes PFSH PFS Medical History Dilated bile duct Dilated pancreatic duct Hyperbilirubinemia Transaminitis Polysubstance abuse Substance abuse Chronic pain Seizures Insomnia Anxiety Neuropathy Opiate dependence Ophthalmic herpes zoster infection Agoraphobia Fusion of lumbar spine Smoker Lupus Hypertension Fibromyalgia Alcohol abuse SLE (systemic lupus erythematosus) Home Medications ?Medication ?Instructions ?Recorded ?Last Taken ?Type amlodipine 10 mg tablet 10 mg PO DAILY 09/30/24 Unkn own History metoprolol tartrate 25 mg tablet 25 mg PO BID 09/30/24 Unknown History Allergy/AdvReac Type Severity Reaction Status Date / Time hydrocodone bitartrate (From Allergy Rash Verified 09/30/24 12:13 Vicodin) nortriptyline HCl (From Allergy Rash Verified 09/30/24 12:13 Pamelor) gabapentin AdvReac Other Verified 09/30/24 12:13 prednisone AdvReac Other Verified 09/30/24 12:13 pregabalin (From Lyrica) AdvReac Other Verified 09/30/24 12:13 zolpidem tartrate (From AdvReac Other Verified 09/30/24 12:13 Ambien) Family History Other Cancer Leukemia Surgical History History of back surgery H/O: hysterectomy Social History household members: significant other Smoking Status: Current every day smoker tobacco type: cigarettes alcohol intake: former substance use type: former substance user ROS ROS ED Constitutional Constitutional ED: Denies chills or fever(s) Eyes Eyes: Denies blurry vision or change in vision ENT ENT ED: Denies rhinorrhea or sore throat Cardiovascular Cardiovascular: Reports palpitations; Denies chest pain Respiratory/Chest Respiratory/Chest: Denies cough or dyspnea Gastrointestinal Gastrointestinal: Reports diarrhea, nausea and vomiting Genitourinary Genitourinary ED: Denies dysuria or hematuria Musculoskeletal Musculoskeletal: Reports back pain; Denies neck pain Integumentary Denies abscess or rash Neurologic Neurologic: Denies headache(s) or weakness Allergic/Immunologic Allergic/Immunologic ED: Denies mouth swelling or urticaria EXAM Physical Exam Const Vital Signs: 09/30/24 12:12 09/30/24 14:12 09/30/24 14:35 Temperature 98 F 98.1 F 98 F Temperature Source Oral Oral Pulse Rate 93 75 77 Respiratory Rate 18 16 18 Blood Pressure 163/106 H 187/114 H 173/98 H Blood Pressure Mean 125 138 123 Pulse Ox 95 94 94 Oxygen Delivery Method Room Air Room Air Positive well nourished and well developed General Appearance ED: well developed and NAD HEENT Reports moist mucous membranes Eyes General Eye ED: Negative for scleral icterus Neck supple and no JVD Resp normal respiratory effort and clear to auscultation bilaterally Cardio regular rate and regular rhythm GI soft to palpation, non-tender and non-distended Neuro oriented x3, CN's II-XII intact bilaterally and no sensory deficits noted Morton Coma Scale: document GCS findings Spontaneous Obeys Commands Oriented 15 Sensorium / Orientation: alert Speech: speech normal Motor Exam: strength 5/5 throughout Psych mental status grossly normal and thought process normal MDM MDM MDM Narrative Medical decision making narrative: Medical screening labs will be obtained. CBC will be obtained to assess for leukocytosis and anemia. Comprehensive metabolic profile will be obtained to assess for hepatic function, renal function, and electrolyte abnormality. Lipase will be obtained to assess for pancreatitis. Urinalysis will be obtained to assess for urinary tract infection and hematuria. Serum alcohol level will be obtained to assess for alcohol intoxication. Urine drug screen will be obtained to assess for substance abuse. History & Record Review Additional record(s) reviewed:: Prior inpatient record, Prior ED visit and Prior labs Lab Data Attestation: I reviewed the patient's lab results. Lab results narrative: CBC was reviewed. There is a mild leukocytosis of 17.2. This was similar to previous results. Comprehensive metabolic profile was reviewed. Potassium was slightly low at 3.2. Alkaline phos was slightly elevated at 206. The remainder is within normal limits. Lipase was reviewed and was normal at 68. Urinalysis was reviewed. There is no evidence of urinary tract infection or hematuria. Urine drug screen was reviewed and was positive for fentanyl and benzodiazepines. Serum alcohol level was reviewed and was less than 10.1. Labs: Laboratory Results - last 24 hr 09/30/24 09/30/24 12:48 12:49 WBC 17.2 H RBC 5.08 Hgb 15.4 H Hct 45.9 MCV 90.4 MCH 30.3 MCHC 33.6 RDW Std Deviation 46.9 H RDW Coeff of Anatoliy 14.1 Plt Count 435 MPV 11.4 Immature Gran % (Auto) 0.600 Neut % (Auto) 80.4 H Lymph % (Auto) 13.0 L [place] % (Auto) 5.6 Eos % (Auto) 0.1 Baso % (Auto) 0.3 Absolute Neuts (auto) 13.9 H Absolute Lymphs (auto) 2.24 Nucleated RBC % 0 Sodium 138 Potassium 3.2 L Chloride 93 L Carbon Dioxide 23.9 Anion Gap 21 H BUN 22 H Creatinine 0.99 Estim Creat Clear Calc 54.14 Est GFR (MDRD) Non-Af 66 BUN/Creatinine Ratio 22.5 H Glucose 142 H Calcium 10.4 Total Bilirubin 0.51 AST 19 ALT 11 Alkaline Phosphatase 206 H Total Protein 8.5 H Albumin 5.0 H Globulin 3.5 Albumin/Globulin Ratio 1.4 Lipase 68 Urine Color Yellow Urine Clarity Clear Urine pH 7.0 Ur Specific Ashley 1.010 Urine Protein 500 H Urine Glucose (UA) Normal Urine Ketones 50 H Urine Occult Blood 25 H Urine Nitrite Negative Urine Bilirubin 1 H Urine Urobilinogen 1 H Ur Leukocyte Esterase 25 H Urine RBC 0 SEEN Urine WBC 0 SEEN Ur Squamous Epith Cells 0-5 SEEN Urine Bacteria 0 SEEN Urine Mucus 1+ Urine Opiates Screen NEGATIVE U Buprenorphine Qual NEGATIVE Ur Oxycodone Screen NEGATIVE Urine Methadone Screen NEGATIVE Urine Fentanyl Screen PRESUMPTIVE POSITIVE Ur Barbiturates Screen NEGATIVE Ur Phencyclidine Scrn NEGATIVE Ur Amphetamines Screen NEGATIVE U Benzodiazepines Scrn PRESUMPTIVE POSITIVE Urine Cocaine Screen NEGATIVE U Cannabinoids Screen NEGATIVE Ethyl Alcohol < 10.1 Treatment and Re-Evaluation Narrative: Patient was given a dose of clonidine here. Patient was given a nicotine patch. Patient started having some nausea. Patient was given a dose of Zofran. Patient was given a dose of potassium. Patient was advised of her findings. Case was discussed with the hospitalist. She will admit the patient to her service. Patient understood and was agreeable with the plan. All questions were answered. Discharge Plan Triage Chief Complaint: Substance Abuse ED Provider: Matthew Reynolds Dx/Rx/DC Orders Clinical Impression: Opiate withdrawal, Elevated blood pressure reading without diagnosis of hypertension, Hypokalemia Prescriptions: No Action amlodipine 10 mg tablet 10 mg PO DAILY metoprolol tartrate 25 mg tablet 25 mg PO BID Primary Care Provider: Care Physician,No Primary Referrals: Care Physician,No Primary [Primary Care Provider] - Print Language: Albanian Disposition Disposition: Acute Care [facility]
[2024-09-30] MEDS: cloNIDine HCl 0.1 MG Tablet PO (12:56)
[2024-09-30 13:21] LABS: Bacteria 0 SEEN /hpf (None Seen); Red Blood Cells-Urine 0 SEEN /hpf (0-5); White Blood Cells 0 SEEN /hpf (0-5)
[2024-09-30 13:23] LABS: Absolute Lymphocyte Count 2.24 X10^3/uL (0.83-4.51); Absolute Neutrophil Count 13.9 X10^3/uL (2.0-7.7); Basophil# 0.05 X10^3/uL; Basophil% 0.3 % (0-1); Eosinophil# 0.01 X10^3/uL; Eosinophils% 0.1 % (0-5); Hematocrit 45.9 % (37-47); Hemoglobin 15.4 g/dL (12.0-15.0); Lymphocyte # 2.24 X10^3/ul (0.83-4.51); Mean Corp Hgb Conc 33.6 g/dL (32-36); Mean Corpuscular Hgb 30.3 pg (27.0-32.0); Mean Corpuscular Volume 90.4 fL (81-99); Mean Platelet Vol. 11.4 fl (6.2-12.0); Monocyte# 0.96 X10^3/uL; Monocyte% 5.6 % (0-10); NRBC Flagged by Analyzer 0 % (0-5); Neutrophil # 13.85 X10^3/uL (2.7-7.7); Neutrophil % 80.4 % (47-70); Platelet Count 435 K/mm3 (150-450); RBC Distribution Width CV 14.1 % (11.6-14.6); RBC Distribution Width SD 46.9 fl (35.1-43.9); Red Blood Count 5.08 M/mm3 (4.2-5.4); White Blood Count 17.2 K/mm3 (4.4-11.0)
[2024-09-30 13:26] LABS: Color, Urine Yellow (Yellow); Glucose, Dipstick Normal (Normal); Ketone-Dipstick 50 mg/dl (Negative); Leukocyte Esterase-Dipstick 25 /ul (Negative); Nitrite-Dipstick Negative (Negative); Occult Blood-Urine 25 /ul (Negative); Protein-Dipstick 500 mg/dl (Negative); Urine Clarity Clear (Clear); Urine Urobilinogen 1 mg/dl (Normal)
[2024-09-30 13:30] LABS: Urine Bilirubin Dipstick 1 mg/dL (Negative)
--- NOTE | 2024-09-30 13:30 | CM.ED ---
Social Work: Date of referral: 09/30/24 Reason for referral: Substance Abuse Referred by: Social Work Identification Patient provided consent to social work visit. Patient recently went through detox and stated her recent relapse was due to patient not feeling good and not being able to get anything done. Patient described herself as a chronic pain patient and is trying to get connected with pain management. garbage pick up worker asked patient if she is connected to any community resources for her addiction or for any other supports which patient stated she is not, stated she's not into that and declined resources at this time. Patient very nauseous and declined any additional supports due to not feeling well. Bharati Vasquez, COMMERCIAL GREEN BUILDING DESIGNER, ROAD [employer] MEMBER
[2024-09-30 13:42] LABS: Mucous, Urine 1+ /hpf (<or=2+); Squamous Epithelial Cells - UA 0-5 SEEN /hpf (5-10)
[2024-09-30 13:51] LABS: ALB/GLOB Ratio 1.4 RATIO (0.9-2.4); AST(SGOT) 19 U/L (<=31); Alanine Aminotransfer ALT/SGPT 11 U/L (<=34); Alkaline Phosphatase 206 U/L (35-104); Anion Gap 21 (5-15); BUN 22 mg/dL (4-19); BUN/Creat Ratio 22.5 RATIO (10-20); Calcium,Total 10.4 mg/dL (7.6-11.0); Carbon Dioxide 23.9 mmol/L (21.0-32.0); Chloride 93 mmol/L (98-108); Creatinine, Serum 0.99 mg/dL (0.70-1.20); EST Glomerular Filtration Rate 66 (>60); Estimated Creatinine Clearance 54.14 ml/min (50-250); Globulin 3.5 g/dL (2.2-4.2); Glucose 142 mg/dL (70-99); Lipase 68 U/L (13-75); Potassium 3.2 mmol/L (3.3-5.1); Protein, Total 8.5 g/dL (5.9-8.4); Sodium Level 138 mmol/L (133-145); Total Bilirubin 0.51 mg/dL (0.00-1.30)
[2024-09-30 13:55] LABS: Alcohol, Blood (Medical)-Serum < 10.1 mg/dL (<=10.0)
[2024-09-30 14:10] LABS: Amphetamine Urine NEGATIVE (<1000 ng/mL); Barbiturate Urine NEGATIVE (< 200 ng/mL); Benzodiazepine Urine PRESUMPTIVE POSITIVE (< 200 ng/mL); Buprenorphine Urine NEGATIVE (< 200 ng/mL); Cocaine Urine NEGATIVE (< 300 ng/mL); Fentanyl, Urine PRESUMPTIVE POSITIVE; Methadone Urine NEGATIVE (< 300 ng/mL); Opiates Urine NEGATIVE (< 300 ng/mL); Oxycodone, Urine NEGATIVE (< 100 ng/mL); PCP Urine NEGATIVE (< 25 ng/mL); THC Urine NEGATIVE (< 50 ng/mL)
--- NOTE | 2024-09-30 14:35 | HP.PCM.HOS_ITS ---
HPI - General General Date of Admission: 09/30/24 Date of Service: 09/30/24 Chief Complaint: Acute Opiate Withdrawal HPI Narrative The patient is a 59 y/o F w/ PMHx: Anxiety and Depression/agoraphobia, Prior BZD withdrawal seizure history, SLE, Fibromyalgia, HTN, HLD, Tobacco use, Chronic back pain with neuropathy, Former EtOH abuse, Polysubstance abuse (primarily opiates, currently fentanyl usually snorted, approximately 2 g/week secondary to chronic underlying pain unable to have prescription narcotics) who presents to the [facility] ED on 09/30/24 w/ noted acute opiate withdrawal onset starting on day of presentation following last dose ~ with muscle aches and pains, nausea with dry heaving, piloerection, rhinorrhea, restlessness, frequent tearing, yawning, fatigue, mild tremors, diarrhea requesting detoxification. Patient interested in attaining clean status. Workup in the ED included T98, heart rate 93, BP 163/106, respiratory rate 18, 95% room air, CBC with WBC 17.2, hgb 15.4, platelet 435 with left shift, CMP with potassium 3.2, chloride 93, BUN/Inez 22/0.99, glucose 142, alk phos 206 otherwise hepatic profile not marked appearing, urinalysis with urine protein 500, urine ketone 50, occult blood 25, negative nitrite, leukocyte esterase 25 with no obvious evidence of UTI, ethyl alcohol less than 10.1, UDS with presumptive positive fentanyl and benzos otherwise negative. In the ED patient ministered nicotine patch 21 mg x 1 as well as clonidine 0.1 mg p.o. x 1. [facility] Medical History Dilated bile duct Dilated pancreatic duct Hyperbilirubinemia Transaminitis Polysubstance abuse Substance abuse Chronic pain Seizures Insomnia Anxiety Neuropathy Opiate dependence Ophthalmic herpes zoster infection Agoraphobia Fusion of lumbar spine Smoker Lupus Hypertension Fibromyalgia Alcohol abuse SLE (systemic lupus erythematosus) Home Medications ?Medication ?Instructions ?Recorded ?Last Taken ?Type amlodipine 10 mg tablet 10 mg PO DAILY 09/30/24 Unkn own History metoprolol tartrate 25 mg tablet 25 mg PO BID 09/30/24 Unknown History Allergy/AdvReac Type Severity Reaction Status Date / Time hydrocodone bitartrate (From Allergy Rash Verified 09/30/24 12:13 Vicodin) nortriptyline HCl (From Allergy Rash Verified 09/30/24 12:13 Pamelor) gabapentin AdvReac Other Verified 09/30/24 12:13 prednisone AdvReac Other Verified 09/30/24 12:13 pregabalin (From Lyrica) AdvReac Other Verified 09/30/24 12:13 zolpidem tartrate (From AdvReac Other Verified 09/30/24 12:13 Ambien) Family History Mother Colon cancer Father CLL (chronic lymphocytic leukemia) Surgical History History of back surgery H/O: hysterectomy Social History household members: significant other Smoking Status: Current every day smoker tobacco type: cigarettes Smoking packs per day: 1 Smoking cigarettes per day: 20.0 alcohol intake: former details: Sober for ~ 7-10 years. substance use type: other details: Fentanyl, snorted, currently 2 gm/week. ROS ROS Narrative Admission Review of Systems: CONSTITUTIONAL: No weight loss, fever, + chills, weakness or fatigue. HEENT: + Congestion, rhinorrhea. Eyes: No visual loss, blurred vision, double vision or yellow sclerae. Ears, Nose, Throat: No hearing loss, sneezing, sore throat. SKIN: No rash or itching, lesions, wounds except + piloerection, very stage ecchymoses, abrasions. CARDIOVASCULAR: No chest pain, chest pressure or chest discomfort, palpitations, edema, orthopnea, syncopal events. RESPIRATORY: No shortness of breath, cough or sputum, wheezing, hemoptysis. GASTROINTESTINAL: + Anorexia, nausea with dry heaving, diarrhea, abdominal cramping. No melena, BRBPR. GENITOURINARY: No dysuria, frequency, urgency or retention. NEUROLOGICAL: + Restlessness, tremulousness. No headache, dizziness, syncope, paralysis, ataxia, numbness or tingling in the extremities, focal weakness, change in bowel or bladder control, seizure. MUSCULOSKELETAL: + muscle, back pain, joint pain or stiffness. HEMATOLOGIC: No anemia, bleeding or bruising. LYMPHATICS: No enlarged nodes. No history of splenectomy. PSYCHIATRIC: + History of anxiety depression/agoraphobia. ENDOCRINOLOGIC: No reports of sweating, cold or heat intolerance. No polyuria or polydipsia. ALLERGIES: No history of asthma, hives, eczema or rhinitis. Vital Signs Vital Signs Vital Signs: 09/30/24 12:12 09/30/24 14:12 Temperature 98 F 98.1 F Temperature Source Oral Oral Pulse Rate 93 75 Respiratory Rate 18 16 Blood Pressure 163/106 H 187/114 H Blood Pressure Mean 125 138 Pulse Ox 95 94 Oxygen Delivery Method Room Air Room Air Weight Weight: 147 lb 2 oz Body Mass Index (BMI) 26.9 Physical Exam Narrative Physical Examination: General: Awake, alert, oriented x 3 and cooperative, seated upright in ED bed, fatigued. Except occasional stage ecchymoses, abrasion. Skin: Normal color, normal turgor, no icterus, no cyanosis. HEENT: AT/NC, EOMI, PERRLA, mildly dry MM, mildly evident rhinorrhea, no carotid bruits or JVD noted. Lungs: Mildly diminished, greater bases, appropriate effort, occasional expiratory wheeze but minimal, no rales or rhonchi. Heart: Regular rate and rhythm; no gallop, rub audible. Abdomen: Soft, mild generalized discomfort with palpation but no rebound or guarding, nondistended, hyperactive BS, no marked HSM discern Extremities: No cyanosis, clubbing, or edema. Neurological: Patient awake, alert, oriented as no, cognitive function intact; pupils equally reactive to light and accommodation, cranial nerves grossly normal, moving all 4 extremities, no focal deficits, strength moderately to severely globally decreased secondary to acute withdrawal, restless, tremulous. Psychiatric: Affect appears uncomfortable, evident withdrawal, no acute evidence of depressive or anxiety feelings but does have underlying history. Results Lab / Micro Data 09/30/24 12:48 09/30/24 12:48 Labs: Laboratory Results - last 24 hr 09/30/24 12:48: WBC 17.2 H, RBC 5.08, Hgb 15.4 H, Hct 45.9, MCV 90.4, MCH 30.3, MCHC 33.6, RDW Std Deviation 46.9 H, RDW Coeff of Anatoliy 14.1, Plt Count 435, MPV 11.4, Immature Gran % (Auto) 0.600, Neut % (Auto) 80.4 H, Lymph % (Auto) 13.0 L, [place] % (Auto) 5.6, Eos % (Auto) 0.1, Baso % (Auto) 0.3, Absolute Neuts (auto) 13.9 H, Absolute Lymphs (auto) 2.24, Nucleated RBC % 0, Sodium 138, Potassium 3.2 L, Chloride 93 L, Carbon Dioxide 23.9, Anion Gap 21 H, BUN 22 H, Creatinine 0.99, Estim Creat Clear Calc 54.14, Est GFR (MDRD) Non-Af 66, BUN/Creatinine Ratio 22.5 H, Glucose 142 H, Calcium 10.4, Total Bilirubin 0.51, AST 19, ALT 11, Alkaline Phosphatase 206 H, Total Protein 8.5 H, Albumin 5.0 H, Globulin 3.5, Albumin/Globulin Ratio 1.4, Lipase 68, Urine Opiates Screen NEGATIVE, U Buprenorphine Qual NEGATIVE, Ur Oxycodone Screen NEGATIVE, Urine Methadone Screen NEGATIVE, Urine Fentanyl Screen PRESUMPTIVE POSITIVE, Ur Barbiturates Screen NEGATIVE, Ur Phencyclidine Scrn NEGATIVE, Ur Amphetamines Screen NEGATIVE, U Benzodiazepines Scrn PRESUMPTIVE POSITIVE, Urine Cocaine Screen NEGATIVE, U Cannabinoids Screen NEGATIVE, Ethyl Alcohol < 10.1 09/30/24 12:49: Urine Color Yellow, Urine Clarity Clear, Urine pH 7.0, Ur Specific [place] 1.010, Urine Protein 500 H, Urine Glucose (UA) Normal, Urine Ketones 50 H, Urine Occult Blood 25 H, Urine Nitrite Negative, Urine Bilirubin 1 H, Urine Urobilinogen 1 H, Ur Leukocyte Esterase 25 H, Urine RBC 0 SEEN, Urine WBC 0 SEEN, Ur Squamous Epith Cells 0-5 SEEN, Urine Bacteria 0 SEEN, Urine Mucus 1+ Assessment & Plan Assessment/Plan (1) Opiate withdrawal: PLAN: Plan The patient is a 59 y/o F w/ PMHx: Anxiety and Depression/agoraphobia, Prior BZD withdrawal seizure history, SLE, Fibromyalgia, HTN, HLD, Tobacco use, Chronic back pain with neuropathy, Former EtOH abuse, Polysubstance abuse (primarily opiates, currently fentanyl usually snorted, approximately 2 g/week secondary to chronic underlying pain unable to have prescription narcotics) who presents to the [facility] ED on 09/30/24 w/ noted acute opiate withdrawal. #1. Acute Opiate Withdrawal: Will admit to MS, routine labs including CBC, CMP, urine for drug screen obtained in the ED [], will initiate and continue on protocol with tapering course of Subutex, as needed tylenol, ibuprofen, bowel regimen, gabapentin, Bentyl, Vistaril, methocarbamol, clonidine, PRN nightly trazodone for insomnia, IV fluids, IV antiemetics. Once patient clinically improved and completion of taper nearing will plan consultation with case management for transition to next level of rehabilitation care. #2. Leukocytosis, unclear etiology, possibly reactive, possible component dehydration: UA without markedly elevated specific gravity but currently in the throes of withdrawal, certainly could be component of dehydration, will hydrate with 1 L upon presentation per protocol, will obtain procalcitonin to be cautious, urinalysis not marked appearing, no pulmonary complaints. #3. Hypokalemia: Admission K+ 3.2, magnesium level requested, supplementation given, repeat level in AM. #4. Hyperglycemia, possibly stress response: Admission glucose 142, given possibility for follow-up although suspect stress response will obtain hemoglobin A1c to be cautious #5. Polysubstance Abuse, Former alcohol abuse: Encouraged continued sobriety, given ongoing opiate abuse as noted above although denies IVDA encouraged to be cautious testing syphilis, HIV, hepatitis panel however patient declined. #6. Hypertension: Continue home regimen including amlodipine, metoprolol, PRN hydralazine. #7. Hyperlipidemia: Noted history, not on regimen per current list, defer to outpatient. #8. Anxiety and depression/agoraphobia: Likely contributing significantly to her substance abuse history in addition to chronic pain, not on any regimen per current list, encourage continued follow-up outpatient, 180/case management consulted #9. Seizure, withdrawal related: Noted seizure history, occurred after withdrawing from xanax per record, not on any antiepileptic medications. #10. SLE: Per current list not on any rheumatological medications, encourage continued follow-up outpatient with rheumatology. #11. Chronic pain syndrome with chronic back pain, fibromyalgia: Patient reports using snorted chronic fentanyl secondary to inability to be prescribed narcotic therapy, encourage offloading, positional changes, would benefit from alternate nonopioid agents to help with pain to avoid returning to substance abuse. #12. Tobacco Abuse: Encouraged cessation, inpatient consultation per RT, NR if desired. #13. DVT prophylaxis: Low risk for type of presentation, encourage ambulation. Charges/Coding Visit Charges Inpatient E&M: 85244 Init Hosp L3
[2024-09-30] MEDS: Potassium Chloride Oral Tablet 20 MEQ 40 MEQ PO (14:38)
[2024-09-30] MEDS: Ondansetron ODT 4 MG Tablet PO (14:38)
[2024-09-30] MEDS: Metoclopramide 5 MG TABLET PO ×2 (15:47→21:46)
[2024-09-30] MEDS: 0.9% Saline Lock 10 ML Syringe IV (15:47)
[2024-09-30] MEDS: Lactated Ringers 1,000 ML 125 ML IV (15:47)
[2024-09-30] MEDS: Buprenorphine HCl 2 MG TAB.SUBL SL ×2 (15:54→23:59)
--- NOTE | 2024-09-30 16:29 | NURSING ---
OBSTETRICS SCRUB NURSE NOTIFIED NEED FOR LAB DRAW, LAB AND THIS RN UNABLE TO OBTAIN.
[2024-09-30] MEDS: Acetaminophen 325 MG Tablet 650 MG PO (18:52)
[2024-09-30 20:00] LABS: Procalcitonin 0.06 ng/mL (<=0.10)
[2024-09-30 20:29] LABS: ALB/GLOB Ratio 1.5 RATIO (0.9-2.4); AST(SGOT) 18 U/L (<=31); Alanine Aminotransfer ALT/SGPT 10 U/L (<=34); Albumin, Serum 4.7 g/dL (3.4-4.8); Alkaline Phosphatase 188 U/L (35-104); Anion Gap 23 (5-15); BUN 23 mg/dL (4-19); BUN/Creat Ratio 23.7 RATIO (10-20); Calcium,Total 9.9 mg/dL (7.6-11.0); Carbon Dioxide 18.8 mmol/L (21.0-32.0); Chloride 95 mmol/L (98-108); Creatinine, Serum 0.97 mg/dL (0.70-1.20); EST Glomerular Filtration Rate 67 (>60); Estimated Creatinine Clearance 55.24 ml/min (50-250); Globulin 3.2 g/dL (2.2-4.2); Glucose 134 mg/dL (70-99); Phosphorus 3.6 mg/dL (2.7-4.5); Potassium 3.8 mmol/L (3.3-5.1); Protein, Total 7.9 g/dL (5.9-8.4); Sodium Level 137 mmol/L (133-145); Total Bilirubin 0.42 mg/dL (0.00-1.30)
[2024-09-30] MEDS: Metoprolol Tartrate 25 MG Tablet PO (21:45)
[2024-09-30] MEDS: hydrOXYzine PAM 25 MG Capsule 50 MG PO (23:59)
[2024-09-30] MEDS: Dicyclomine 10 MG Capsule 20 MG PO (23:59)
[2024-10-01] VITALS (7 sets, daily range): BP systolic 130–176; BP diastolic 74–122; PULSE 65–80; RESP 13–18; TEMP 36.6–37.1; O2SAT 92–98
[2024-10-01 00:40] LABS: Hemoglobin A1c 5.7 % (<=5.6)
[2024-10-01] MEDS: Metoprolol Tartrate 25 MG Tablet PO ×2 (05:44→21:53)
[2024-10-01] MEDS: cloNIDine HCl 0.1 MG Tablet PO ×2 (05:44→16:22)
[2024-10-01] MEDS: Acetaminophen 325 MG Tablet 650 MG PO (05:44)
[2024-10-01 08:15] LABS: Lactic Acid < 1.0 mmol/L (0.0-2.0)
[2024-10-01] MEDS: Metoclopramide 5 MG TABLET PO ×3 (09:20→22:22)
[2024-10-01] MEDS: hydrOXYzine PAM 25 MG Capsule 50 MG PO ×3 (09:20→22:22)
[2024-10-01] MEDS: amLODIPine 10 MG Tablet PO (09:21)
[2024-10-01] MEDS: Buprenorphine HCl 2 MG TAB.SUBL SL ×2 (09:22→16:22)
--- NOTE | 2024-10-01 13:29 | PN_ITS ---
Subjective Subjective Patient seen and examined. She complained of abdominal cramping. She also complained of nausea and vomiting. That is all related to acute opioid withdrawal. Review systems otherwise negative. Objective Data Objective Data Vital Signs: Vital Signs Temp Pulse Resp BP Pulse Ox O2 Del Method 97.8 F 66 13 151/89 H 94 Room Air 10/01/24 09:00 10/01/24 09:00 10/01/24 09:00 10/01/24 09:00 10/01/24 09:00 10/01/24 09:00 Oxygen Delivery Method Room Air Weight: 147 lb Body Mass Index (BMI) 26.9 Intake & Output: Intake and Output for Last 24 Hours 09/29/24 09/30/24 10/01/24 23:59 23:59 23:59 Intake Total 1200 / 1500 500 / 500 Balance 1200 / 1500 500 / 500 Lab / Micro Data 09/30/24 12:48 09/30/24 17:24 Labs: Laboratory Results - last 24 hr 09/30/24 12:48: Sodium 138, Potassium 3.2 L, Chloride 93 L, Carbon Dioxide 23.9, Anion Gap 21 H, BUN 22 H, Creatinine 0.99, Estim Creat Clear Calc 54.14, Est GFR (MDRD) Non-Af 66, BUN/Creatinine Ratio 22.5 H, Glucose 142 H, Hemoglobin A1c 5.7, Calcium 10.4, Phosphorus Cancelled, Magnesium Cancelled, Total Bilirubin 0.51, AST 19, ALT 11, Alkaline Phosphatase 206 H, Total Protein 8.5 H, Albumin 5.0 H, Globulin 3.5, Albumin/Globulin Ratio 1.4, Lipase 68, Urine Opiates Screen NEGATIVE, U Buprenorphine Qual NEGATIVE, Ur Oxycodone Screen NEGATIVE, Urine Methadone Screen NEGATIVE, Urine Fentanyl Screen PRESUMPTIVE POSITIVE, Ur Barbiturates Screen NEGATIVE, Ur Phencyclidine Scrn NEGATIVE, Ur Amphetamines Screen NEGATIVE, U Benzodiazepines Scrn PRESUMPTIVE POSITIVE, Urine Cocaine Screen NEGATIVE, U Cannabinoids Screen NEGATIVE, Ethyl Alcohol < 10.1 09/30/24 12:49: Urine Color Yellow, Urine Clarity Clear, Urine pH 7.0, Ur Specific [place] 1.010, Urine Protein 500 H, Urine Glucose (UA) Normal, Urine Ketones 50 H, Urine Occult Blood 25 H, Urine Nitrite Negative, Urine Bilirubin 1 H, Urine Urobilinogen 1 H, Ur Leukocyte Esterase 25 H, Urine RBC 0 SEEN, Urine WBC 0 SEEN, Ur Squamous Epith Cells 0-5 SEEN, Urine Bacteria 0 SEEN, Urine Mucus 1+ 09/30/24 14:54: Phosphorus Cancelled, Magnesium Cancelled 09/30/24 17:24: Sodium 137, Potassium 3.8, Chloride 95 L, Carbon Dioxide 18.8 L, Anion Gap 23 H, BUN 23 H, Creatinine 0.97, Estim Creat Clear Calc 55.24, Est GFR (MDRD) Non-Af 67, BUN/Creatinine Ratio 23.7 H, Glucose 134 H, Calcium 9.9, Phosphorus 3.6, Magnesium 2.0, Total Bilirubin 0.42, AST 18, ALT 10, Alkaline Phosphatase 188 H, Total Protein 7.9, Albumin 4.7, Globulin 3.2, Albumin/Globulin Ratio 1.5, Procalcitonin 0.06 10/01/24 07:35: Lactic Acid < 1.0 Physical Exam Const alert, oriented x3 and no apparent distress General Appearance: cooperative HEENT normocephalic, head/scalp atraumatic, moist oral mucous membranes and oropharynx normal Eyes PERRL and EOMs intact bilaterally Neck no lymphadenopathy, supple and no JVD Lymph Lymphatic: no lymphadenopathy noted and no lymphedema noted Resp Resp Narrative: Mildly diminished breath sounds bibasilarly. No wheezes or crackles. On room air. Cardio regular rate, regular rhythm, S1 normal heart sound, S2 normal heart sound and no murmurs GI normal to inspection, nondistended, normoactive bowel sounds, soft to palpation, non-tender and non-distended Extremity normal capillary refill, no clubbing, cyanosis or edema and no calf tenderness General Extremity: no tenderness to palpation of joints or extremities Skin General Skin Exam: no breakdown Neuro CN's II-XII intact bilaterally, no focal motor deficits and no sensory deficits noted Motor Exam: strength 5/5 throughout and general weakness Psych thought process normal, cooperative and affect normal Appearance: appropriate Assessment & Plan Assessment/Plan (1) Elevated blood pressure reading without diagnosis of hypertension: (2) Opiate withdrawal: (3) Hypokalemia: PLAN: Plan #Acute opioid withdrawal * Patient uses fentanyl. On p.o. opioid withdrawal protocol with buprenorphine. * Adjunctive meds for symptomatic relief. 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 Will monitor. #Hypertension: On amlodipine and metoprolol. IV hydralazine as needed #Anxiety and depression: * Currently not on any meds. * has had withdrawal seizures in the past. * Follow-up with the PCP on outpatient basis. #Anion gap metabolic acidosis: * Bicarb was 18.8 yesterday with anion gap of 23 today. Etiology is unclear though I think he may be related to starvation ketosis though blood sugar was 134. * Will repeat BMP today and monitor. * #Leucocytosis: * wbc was 17.2 on admission. * WBC has been chronically elevated since June 2024. * There is no clear evidence of infection. * Will monitor closely for now. * #History of SLE: Not on any medications. Follow-up with rheumatology on outpatient basis. #Chronic pain syndrome with chronic back pain and fibromyalgia * Patient had hysteroscopy as she is unable to obtain pain meds. Will benefit from follow-up with pain management on outpatient basis. #Nicotine dependence, counseled to quit. Nicotine patch As needed. DVT prophylaxis: low risk, encourage to ambulate Charges/Coding Visit Charges Inpatient E&M: 82294 Subs Hosp L2
[2024-10-01 21:46] LABS: Anion Gap 13 (5-15); BUN 23 mg/dL (4-19); BUN/Creat Ratio 28.7 RATIO (10-20); Calcium,Total 9.2 mg/dL (7.6-11.0); Carbon Dioxide 22.7 mmol/L (21.0-32.0); Chloride 99 mmol/L (98-108); Creatinine, Serum 0.81 mg/dL (0.70-1.20); EST Glomerular Filtration Rate 83 (>60); Estimated Creatinine Clearance 66.15 ml/min (50-250); Glucose 110 mg/dL (70-99); Potassium 3.4 mmol/L (3.3-5.1); Sodium Level 135 mmol/L (133-145)
[2024-10-01] MEDS: Methocarbamol 750 MG Tablet PO (22:22)
[2024-10-02] MEDS: Buprenorphine HCl 2 MG TAB.SUBL SL ×3 (00:01→15:35)
[2024-10-02 04:12] VITALS: BP 132/68; PULSE 72; RESP 16; TEMP 36.6; O2SAT 95
[2024-10-02] MEDS: Loperamide 2 MG Capsule PO (08:05)
[2024-10-02] MEDS: hydrOXYzine PAM 25 MG Capsule 50 MG PO ×2 (08:05→15:35)
[2024-10-02 08:08] VITALS: PULSE 72
[2024-10-02] MEDS: Metoprolol Tartrate 25 MG Tablet PO (08:08)
[2024-10-02] MEDS: Methocarbamol 750 MG Tablet PO ×2 (08:08→15:35)
[2024-10-02] MEDS: Metoclopramide 5 MG TABLET PO ×2 (08:08→15:35)
[2024-10-02] MEDS: amLODIPine 10 MG Tablet PO (08:09)
[2024-10-02 08:17] VITALS: BP 126/81; PULSE 72; RESP 16; TEMP 36.6; O2SAT 93
[2024-10-02 08:23] VITALS: BP 126/81; PULSE 72; RESP 16; TEMP 36.6; O2SAT 93
--- NOTE | 2024-10-02 10:39 | ADDICTION ---
Met with patient to complete RAMP assessments. Pt declined to have conversation with clinician. Clinician informed her that having a conversation with the detox coordinator was part of the RAMP program requirements. She responded with well, then conversate Clinician asked her what her follow up plan treatment was, she reported Nothing, you can go. She reported, I don't like your attitude. Clinician empathized with her emotions and attempted to discuss her use. Patient was not interested and refused any more conversation.
--- NOTE | 2024-10-02 13:03 | DCINST_ITS ---
Discharge Instructions Diet Discharge Diet: No restrictions DC O2, CPAP, BIPAP needs Home O2 Discharge instructions: No Dressing / Incision Discharge Activity: Return to Normal Activity Weight Bearing Status: Full weight bearing Follow Up Care Test Results: Test results from this visit will be discussed in further detail at your follow- up appointment, if applicable. Discharge Plan Admission Admit Date/Time: 09/30/24 14:39 Primary Reason for Your Visit: Opiate withdrawal, opiate use disorder Attending Provider: Seng Eaton Primary Care Provider: Care Physician,No Primary Consulting Providers: Cassie Morris Nana Yaa Discharge Orders/Prescriptions Prescriptions: New amlodipine 10 mg Tablet 10 mg PO DAILY Qty: 30 0RF metoprolol tartrate 25 mg Tablet 25 mg PO BID Qty: 60 0RF Discontinued amlodipine 10 mg tablet 10 mg PO DAILY metoprolol tartrate 25 mg tablet 25 mg PO BID Referrals / Follow Up: Care Physician,No Primary [Primary Care Provider] - [facility]Non[facility]Staff[facility] - Within 1 Month (Call for an appointment) Disposition Disposition (needs filled in before D/C Order can be placed): Home, Self Care
--- NOTE | 2024-10-02 13:13 | DS.PCM_ITS ---
Providers Date of Admission: 09/30/24 Date of Discharge: 10/02/24 Primary Care Physician: No Primary Care Phys Reason For Visit: ACUTE OPIATE WITHDRAWAL Diagnosis Discharge Diagnosis (1) Elevated blood pressure reading without diagnosis of hypertension: Status: Acute Code(s): R03.0 - Elevated blood-pressure reading, without diagnosis of hypertension (2) Opiate withdrawal: Status: Acute Code(s): F11.93 - Opioid use, unspecified with withdrawal (3) Hypokalemia: Status: Acute Code(s): E87.6 - Hypokalemia Plan 1. Acute opiate withdrawal #2 opiate use disorder #3 essential hypertension-uncontrolled due to patient noncompliance #4 leukocytosis-etiology unclear #5 patient noncompliance Medications at Discharge Home Medications amlodipine 10 mg tablet 10 mg PO DAILY #30 tabs 10/02/24 metoprolol tartrate 25 mg tablet 25 mg PO BID #60 tabs 10/02/24 Hospital Course Operations None Procedures None Summary of Care Provided Minutes Spent on Discharge: 31 Hospital Course: Patient was seen in the emergency room at [facility] requesting services for opiate detox. She had also been on blood pressure medications in the past but had stopped the medications long ago. Workup in the emergency room included a CBC which showed an elevated white blood cell count at 17.2, chemistry profile was remarkable for a BUN of 23. Talk screen was positive for fentanyl and benzodiazepines. Patient's blood pressure was elevated in the emergency room. Patient was admitted to [facility] 3 orders were entered using the opiate detox order set, patient's blood pressure remained elevated and she was placed on blood pressure medication. Patient was seen by addiction social media executive, she refused to discuss follow-up plans with the addiction school social worker. On 10/02/2024, patient was seen and examined: On examination she appeared in good health and spirits, she does not appear to be in any distress. Vital signs as documented. Skin warm and dry and without overt rashes. Neck without JVD, thyroid appears normal, trachea is midline, neck is supple. Lungs clear, normal air movement was noted. Heart exam notable for regular rhythm, normal sounds and absence of murmurs, rubs or gallops. Abdomen unremarkable and without evidence of organomegaly, masses, or abdominal aortic enlargement, bowel sounds are present in all 4 quadrants, no abdominal tenderness was noted. Extremities nonedematous, no cyanosis was noted, no clubbing was noted. Neuro: Cranial nerves II through XII are grossly intact, no focal motor deficits were noted, sensation to light touch and pinprick is intact, motor exam 5/5 throughout. Psych: Patient is alert and oriented x3, she does not appear anxious or depressed, she does not appear agitated. Patient was discharged home in stable condition on 10/02/2024 Weight / BMI Weight Weight: 66.678 kg Body Mass Index (BMI) 26.9 ABG / Lab / Microbiology Data 09/30/24 12:48 10/01/24 20:45 Laboratory: Laboratory Results - last 24 hr 10/01/24 20:45: Sodium 135, Potassium 3.4, Chloride 99, Carbon Dioxide 22.7, Anion Gap 13, BUN 23 H, Creatinine 0.81, Estim Creat Clear Calc 66.15, Est GFR (MDRD) Non-Af 83, BUN/Creatinine Ratio 28.7 H, Glucose 110 H, Calcium 9.2 D/C Instructions Discharge Diet: No restrictions Weight Bearing Status: Full weight bearing DC O2, CPAP, BIPAP Needs Home O2 Discharge instructions: No Meaningful Use Info Meaningful Use Meaningful Use Diagnoses (Choose all that apply): None applicable Ischemic Stroke Statin Dosing Therapy Reference: STATIN DOSE THERAPY REFERENCE: * Patients > 75 years receive moderate or high dose statin therapy. * Patients 75 years or YOUNGER should receive HIGH intensity statin dose unless contraindicated. You will be required to document reason for non-treatment if statin daily dose does not meet guidelines. HIGH DOSE STATIN THERAPY DAILY Atorvastatin > than or = to 40 mg Rosuvastatin > than or = to 20 mg Amlodipine + Atorvastatin > than or = to 2.5/40 mg Ezetimibe + Simvastatin 10/80 mg Simvastatin 80mg Discharge Plan Admission Admit Date/Time: 09/30/24 14:39 Primary Reason for Your Visit: Opiate withdrawal, opiate use disorder Attending Provider: Seng Eaton Primary Care Provider: Care Physician,No Primary Consulting Providers: Cassie Morris Nana Yaa Discharge Orders/Prescriptions Prescriptions: New amlodipine 10 mg Tablet 10 mg PO DAILY Qty: 30 0RF metoprolol tartrate 25 mg Tablet 25 mg PO BID Qty: 60 0RF Discontinued amlodipine 10 mg tablet 10 mg PO DAILY metoprolol tartrate 25 mg tablet 25 mg PO BID Referrals / Follow Up: Care Physician,No Primary [Primary Care Provider] - [facility] [Non-[facility] - Within 1 Month (Call for an appointment) Disposition Disposition (needs filled in before D/C Order can be placed): Home, Self Care Charges/Coding Visit Charges Inpatient E&M: 26561 Disch Hosp >30min
--- NOTE | 2024-10-02 13:38 | PHA.DC.MR.R ---
Pharmacy [place] Med Reconciliation Pharmacy Service has performed discharge medication reconciliation for this patient. The patient's discharge medication list was reviewed for discrepancies and discrepancies were resolved. Medications at Discharge Home Medications amlodipine 10 mg tablet 10 mg PO DAILY #30 tabs 10/02/24 metoprolol tartrate 25 mg tablet 25 mg PO BID #60 tabs 10/02/24
[2024-10-02] MEDS: cloNIDine HCl 0.1 MG Tablet PO (15:35)
[2024-10-02] MEDS: Dicyclomine 10 MG Capsule 20 MG PO (15:35)
[2024-10-02 15:51] VITALS: BP 159/84; PULSE 78; RESP 16; TEMP 37.2; O2SAT 94
== END 2024-10-02 15:54 | disposition home or self-care (01) | DRG 897 ==
LOC: ED 14:44 → MS3 15:08
PROVIDERS: Student in an Organized Health Care Education/Training Program; Admitting Provider Family Medicine; Emergency Provider Emergency Medicine; Visit Provider Internal Medicine
DX: F11.93 Opioid use, unspecified with withdrawal (principal); E87.20 Acidosis, unspecified; M32.9 Systemic lupus erythematosus, unspecified; F32.A Depression, unspecified; I10 Essential (primary) hypertension; D72.829 Elevated white blood cell count, unspecified; M79.7 Fibromyalgia; E78.5 Hyperlipidemia, unspecified; E87.6 Hypokalemia; F17.210 Nicotine dependence, cigarettes, uncomplicated; F41.9 Anxiety disorder, unspecified; M54.9 Dorsalgia, unspecified; G89.4 Chronic pain syndrome; R73.9 Hyperglycemia, unspecified; Z90.710 Acquired absence of both cervix and uterus; R03.0 Elevated blood-pressure reading, without diagnosis of hypertension
CPT/HCPCS: 36415; 80048; 80053; 80307; 81001; 82077; 83036; 83605; 83690; 83735; 84100; 84145; 85025; 97802; 99284; A4216

== ENCOUNTER 2025-01-23 07:21 | Inpatient (IN) | payer MEDICARE, SELFPAY ==
[2025-01-23] VITALS (11 sets, daily range): BP systolic 134–195; BP diastolic 76–111; PULSE 78–127; RESP 14–22; TEMP 36.1–37.5; O2SAT 92–98; BMI 26.2; BMI 26.4
--- NOTE | 2025-01-23 07:44 | EX.ED.SAOD ---
HPI History of Present Illness Chief Complaint: Substance Abuse Informant: patient Narrative Narrative: 60-year-old female requesting inpatient detox for opioids. She snorts fentanyl daily for the last 1.5 months last time she was here in detox was in September. She started on fentanyl because her prescription pain medications were taken away from me for her chronic low back pain. She has not used fentanyl for 3 or 4 days and feels like she is in withdrawal; she is having sweats, nausea, dry heaving, decreased p.o. intake and trying to drink some water, abdominal cramping, anxiety/shaking, body aches. No fevers, chills, other recent illness. She has a history of a gallbladder stent, that has been doing well she denies having any abdominal pain related to that. She denies using alcohol or other substances and denies using IV drugs. [facility] Medical History (Updated 01/23/25 @ 14:10 by Gladis Black) Hypertension Hypokalemia Elevated blood pressure reading without diagnosis of hypertension Opiate withdrawal Dilated bile duct Dilated pancreatic duct Hyperbilirubinemia Transaminitis Polysubstance abuse Substance abuse Chronic pain Seizures Insomnia Anxiety Neuropathy Opiate dependence Ophthalmic herpes zoster infection Agoraphobia Fusion of lumbar spine Smoker Lupus Hypertension Fibromyalgia Alcohol abuse SLE (systemic lupus erythematosus) Home Medications ?Medication ?Instructions ?Recorded ?Last Taken ?Type amlodipine 10 mg tablet 10 mg PO DAILY bp #30 tabs 10/02/24 Unknown Rx metoprolol tartrate 25 mg tablet 25 mg PO BID bp , heart rate #60 10/02/24 Unknown Rx tabs Allergy/AdvReac Type Severity Reaction Status Date / Time hydrocodone bitartrate (From Allergy Rash Verified 01/23/25 12:58 Vicodin) nortriptyline HCl (From Allergy Rash Verified 01/23/25 12:58 Pamelor) gabapentin AdvReac Other Verified 01/23/25 12:58 prednisone AdvReac Other Verified 01/23/25 12:58 pregabalin (From Lyrica) AdvReac Other Verified 01/23/25 12:58 zolpidem tartrate (From AdvReac Other Verified 01/23/25 12:58 Ambien) Family History Mother Colon cancer Father CLL (chronic lymphocytic leukemia) Surgical History History of back surgery H/O: hysterectomy Social History household members: significant other Smoking Status: Current every day smoker tobacco type: cigarettes alcohol intake: former details: Sober for ~ 7-10 years. substance use type: other details: Fentanyl, snorted, currently 2 gm/week. ROS ROS ED Constitutional Constitutional ED: Reports body ache(s) and malaise; Denies chills or fever(s) Eyes Eyes: Denies change in vision or diplopia ENT ENT ED: Denies rhinorrhea or sore throat Cardiovascular Cardiovascular: Denies chest pain or palpitations Respiratory/Chest Respiratory/Chest: Denies cough or dyspnea Gastrointestinal Gastrointestinal: Reports abdominal pain, nausea and vomiting; Denies diarrhea Genitourinary Genitourinary ED: Denies dysuria or hematuria Musculoskeletal Musculoskeletal: Reports back pain; Denies neck pain Integumentary Denies abscess or rash Neurologic Neurologic: Denies headache(s), paresthesias or weakness Psychiatric Psychiatric: Reports anxiety; Denies suicidal thoughts EXAM Physical Exam Const Vital Signs: 01/23/25 07:21 01/23/25 07:21 Temperature 97 F L Temperature Source Temporal Pulse Rate 122 H 123 H Respiratory Rate 22 H 22 H Blood Pressure 180/109 H 182/111 H Blood Pressure Mean 132 134 Pulse Ox 97 98 Oxygen Delivery Method Room Air Room Air Positive well nourished and well developed Constitutional Narrative: Anxious and shaky but no distress General Appearance ED: well developed and NAD HEENT Reports moist mucous membranes normocephalic and atraumatic Eyes PERRL and EOMs intact bilaterally Neck full ROM and supple Resp normal respiratory effort and clear to auscultation bilaterally Cardio regular rate, regular rhythm and no murmurs Rate: tachycardic GI non-tender and non-distended Auscultation: normoactive bowel sounds Palpation: soft Back/Spine no CVA tenderness General Back: other FROM Extremity normal to inspection General Extremety ED: Negative for edema, pulses abnormal or tenderness General Extremity: Negative for edema or pulses abnormal Neuro oriented x3, CN's II-XII intact bilaterally and no sensory deficits noted Sensorium / Orientation: awake and alert Motor Exam: strength 5/5 throughout Psych thought process normal Psych Narrative: No suicidality Mood & Affect: anxious Skin no rashes or lesions noted and no wounds MDM MDM MDM Narrative Medical decision making narrative: Labs obtained and patient was treated for withdrawal, and given some fluids in the IV as well because of lack of intake for the last couple days due to withdrawal symptoms. She does have a significant leukocytosis which I suspect is due to demargination from the stress of the withdrawal, in addition to being a little prerenal and having hypertension again related to withdrawal. Alcohol is negative and she denies using. Lab Data Attestation: I reviewed the patient's lab results. Labs: Laboratory Results - last 24 hr 01/23/25 08:04 WBC 21.2 H RBC 5.33 Hgb 16.2 H Hct 47.8 H MCV 89.7 MCH 30.4 MCHC 33.9 RDW Std Deviation 47.4 H RDW Coeff of Anatoliy 14.5 Plt Count 403 MPV 10.3 Immature Gran % (Auto) 0.700 Neut % (Auto) 82.3 H Lymph % (Auto) 10.6 L Ector % (Auto) 5.9 Eos % (Auto) 0.0 Baso % (Auto) 0.5 Absolute Neuts (auto) 17.4 H Absolute Lymphs (auto) 2.24 Nucleated RBC % 0 Sodium 138 Potassium 3.2 L Chloride 93 L Carbon Dioxide 22.8 Anion Gap 22 H BUN 23 H Creatinine 1.19 Estim Creat Clear Calc 43.90 L Est GFR (MDRD) Non-Af 52 L BUN/Creatinine Ratio 19.4 Glucose 144 H Calcium 10.1 Total Bilirubin 0.61 AST 19 ALT 14 Alkaline Phosphatase 230 H Total Protein 8.3 Albumin 4.7 Globulin 3.6 Albumin/Globulin Ratio 1.3 Ethyl Alcohol < 10.1 Management Discussion w/another healthcare provider: Hospitalist Discharge Plan Dx/Rx/DC Orders Clinical Impression: Opiate dependence, Opiate withdrawal Disposition Disposition: Acute Care Hospital [facility] Discharge Date/Time: 01/23/25 14:08
[2025-01-23] MEDS: Lorazepam 2 MG/ML WCH Syringe 0.5 MG IV (08:12)
[2025-01-23] MEDS: 0.9% Normal Saline (1000mL) 1,000 ML 999 ML IV (08:13)
[2025-01-23 08:14] LABS: Hematocrit 47.8 % (37-47); Hemoglobin 16.2 g/dL (12.0-15.0); Immature Granulocytes Count 0.140 X10^3/uL (0.0-0.0); Mean Corp Hgb Conc 33.9 g/dL (32-36); Mean Corpuscular Volume 89.7 fL (81-99); Mean Platelet Vol. 10.3 fl (6.2-12.0); NRBC Flagged by Analyzer 0 % (0-5); Platelet Count 403 K/mm3 (150-450); RBC Distribution Width CV 14.5 % (11.6-14.6); RBC Distribution Width SD 47.4 fl (35.1-43.9); Red Blood Count 5.33 M/mm3 (4.2-5.4); White Blood Count 21.2 K/mm3 (4.4-11.0)
[2025-01-23 08:47] LABS: Alcohol, Blood (Medical)-Serum < 10.1 mg/dL (<=10.0)
[2025-01-23 08:48] LABS: AST(SGOT) 19 U/L (<=31); Alanine Aminotransfer ALT/SGPT 14 U/L (<=34); Albumin, Serum 4.7 g/dL (3.4-4.8); Alkaline Phosphatase 230 U/L (35-104); Anion Gap 22 (5-15); BUN 23 mg/dL (4-19); BUN/Creat Ratio 19.4 RATIO (10-20); Calcium,Total 10.1 mg/dL (7.6-11.0); Carbon Dioxide 22.8 mmol/L (21.0-32.0); Chloride 93 mmol/L (98-108); Estimated Creatinine Clearance 43.90 ml/min (50-250); Globulin 3.6 g/dL (2.2-4.2); Glucose 144 mg/dL (70-99); Potassium 3.2 mmol/L (3.3-5.1)
[2025-01-23 11:03] LABS: Barbiturate Urine NEGATIVE (< 200 ng/mL); Benzodiazepine Urine NEGATIVE (< 200 ng/mL); PCP Urine NEGATIVE (< 25 ng/mL); THC Urine NEGATIVE (< 50 ng/mL)
[2025-01-23] MEDS: hydrOXYzine PAM 25 MG Capsule 50 MG PO ×2 (14:40→22:47)
--- NOTE | 2025-01-23 16:02 | PCM.HP.STD ---
HPI - General General Date of Admission: 01/23/25 HPI Narrative EMILY DELACRUZ, is a 60 F who presents to the hospital requesting detox from opiates. She snorts fentanyl but her last use was 3 to 4 days ago, she had been checked for HIV and hepatitis C a couple years ago and has not used IV drugs since that time.. In the ER she was found to have a leukocytosis but is afebrile with no signs of infection and it does appear to be chronically elevated over the last couple years I do recommend outpatient follow-up. Hemoglobin is also elevated to 16.2 potential indicating some dehydration. She is currently going through active withdrawal and her blood pressures are elevated as is her heart rate but she is fairly restless and anxious on admission. The rest of her lab work is fairly benign but will monitor again tomorrow. [facility] Medical History (Updated 01/23/25 @ 14:10 by Gladis Black) Hypertension Hypokalemia Elevated blood pressure reading without diagnosis of hypertension Opiate withdrawal Dilated bile duct Dilated pancreatic duct Hyperbilirubinemia Transaminitis Polysubstance abuse Substance abuse Chronic pain Seizures Insomnia Anxiety Neuropathy Opiate dependence Ophthalmic herpes zoster infection Agoraphobia Fusion of lumbar spine Smoker Lupus Hypertension Fibromyalgia Alcohol abuse SLE (systemic lupus erythematosus) Home Medications ?Medication ?Instructions ?Recorded ?Last Taken ?Type amlodipine 10 mg tablet 10 mg PO DAILY bp #30 tabs 10/02/24 Unknown Rx metoprolol tartrate 25 mg tablet 25 mg PO BID bp , heart rate #60 10/02/24 Unknown Rx tabs Allergy/AdvReac Type Severity Reaction Status Date / Time hydrocodone bitartrate (From Allergy Rash Verified 01/23/25 12:58 Vicodin) nortriptyline HCl (From Allergy Rash Verified 01/23/25 12:58 Pamelor) gabapentin AdvReac Other Verified 01/23/25 12:58 prednisone AdvReac Other Verified 01/23/25 12:58 pregabalin (From Lyrica) AdvReac Other Verified 01/23/25 12:58 zolpidem tartrate (From AdvReac Other Verified 01/23/25 12:58 Ambien) Family History Mother Colon cancer Father CLL (chronic lymphocytic leukemia) Surgical History History of back surgery H/O: hysterectomy Social History household members: significant other Smoking Status: Current every day smoker tobacco type: cigarettes alcohol intake: former details: Sober for ~ 7-10 years. substance use type: other details: Fentanyl, snorted, currently 2 gm/week. ROS Constitutional Constitutional: Denies chills, fatigue, fever(s) or malaise Eyes Eyes: Denies blurry vision ENT HEENT: Denies headache(s) or nasal discharge Cardiovascular Cardiovascular: Denies chest pain, dyspnea on exertion or syncope Respiratory/Chest Respiratory/Chest: Denies cough, shortness of breath at rest or shortness of breath with exertion Gastrointestinal Gastrointestinal: Denies constipation, diarrhea, nausea or vomiting Genitourinary Genitourinary: Denies dysuria Neurologic Neurologic: Denies focal weakness, numbness or tremor(s) Psychiatric Psychiatric: Reports anxiety; Denies depression Vital Signs Vital Signs Vital Signs: 01/23/25 07:21 01/23/25 07:21 01/23/25 09:21 Temperature 97 F L Temperature Source Temporal Pulse Rate 122 H 123 H 99 Respiratory Rate 22 H 22 H 20 H Respiratory Effort Respiratory Depth Respiratory Pattern Blood Pressure 180/109 H 182/111 H 134/76 H Blood Pressure Mean 132 134 95 Blood Pressure Source Blood Pressure Position Blood Pressure Location Pulse Ox 97 98 98 Oxygen Delivery Method Room Air Room Air Room Air 01/23/25 11:00 01/23/25 13:00 01/23/25 14:06 Temperature 99.5 F H Temperature Source Oral Pulse Rate 122 H 78 127 H Respiratory Rate 14 16 18 Respiratory Effort Respiratory Depth Respiratory Pattern Blood Pressure 176/99 H 152/78 H 174/110 H Blood Pressure Mean 124 102 131 Blood Pressure Source Monitor Blood Pressure Position Semi-Fowlers Blood Pressure Location Right Arm Pulse Ox 96 98 95 Oxygen Delivery Method Room Air Room Air Room Air 01/23/25 14:45 01/23/25 15:14 Temperature Temperature Source Pulse Rate 113 H Respiratory Rate Respiratory Effort Normal Non-Labored Respiratory Depth Normal Respiratory Pattern Normal Blood Pressure 178/108 H Blood Pressure Mean Blood Pressure Source Blood Pressure Position Blood Pressure Location Pulse Ox Oxygen Delivery Method Room Air Weight Weight: 144 lb 11.2 oz Body Mass Index (BMI) 26.4 Physical Exam Narrative General: Alert, Oriented x3, Cooperative, No apparent distress, restless HEENT: Atraumatic, PERRLA, EOMI, Normocephalic Oral: Moist Mucosa Neck: Supple, No JVD Lungs: Clear to auscultation, Normal air movement, No rhonchi, No wheeze, No rales Cardiovascular: Tachycardic, Regular Rhythm, Normal S1, Normal S2, No murmurs Abdomen: Soft, Non Tender, Non-Distended, No Hepato-splenomegaly Extremities: No edema, Capillary Refill Less than 3 Seconds Skin: No rashes, No breakdown Musculoskeletal: No Tenderness to Palpation of Joints or Extremities Neurological: No focal neurological deficits, Motor Exam 5/5 strength throughout, Sensory exam intact to light touch and pain Psych/Mental Status: Anxious Results Lab / Micro Data 01/23/25 08:04 01/23/25 08:04 Labs: Laboratory Results - last 24 hr 01/23/25 08:04: WBC 21.2 H, RBC 5.33, Hgb 16.2 H, Hct 47.8 H, MCV 89.7, MCH 30.4, MCHC 33.9, RDW Std Deviation 47.4 H, RDW Coeff of Anatloiy 14.5, Plt Count 403, MPV 10.3, Immature Gran % (Auto) 0.700, Neut % (Auto) 82.3 H, Lymph % (Auto) 10.6 L, [place] % (Auto) 5.9, Eos % (Auto) 0.0, Baso % (Auto) 0.5, Absolute Neuts (auto) 17.4 H, Absolute Lymphs (auto) 2.24, Nucleated RBC % 0, Sodium 138, Potassium 3.2 L, Chloride 93 L, Carbon Dioxide 22.8, Anion Gap 22 H, BUN 23 H, Creatinine 1.19, Estim Creat Clear Calc 43.90 L, Est GFR (MDRD) Non-Af 52 L, BUN/Creatinine Ratio 19.4, Glucose 144 H, Calcium 10.1, Total Bilirubin 0.61, AST 19, ALT 14, Alkaline Phosphatase 230 H, Total Protein 8.3, Albumin 4.7, Globulin 3.6, Albumin/Globulin Ratio 1.3, Ethyl Alcohol < 10.1 01/23/25 10:29: Urine Opiates Screen NEGATIVE, U Buprenorphine Qual NEGATIVE, Ur Oxycodone Screen NEGATIVE, Urine Methadone Screen NEGATIVE, Urine Fentanyl Screen PRESUMPTIVE POSITIVE, Ur Barbiturates Screen NEGATIVE, Ur Phencyclidine Scrn NEGATIVE, Ur Amphetamines Screen NEGATIVE, U Benzodiazepines Scrn NEGATIVE, Urine Cocaine Screen NEGATIVE, U Cannabinoids Screen NEGATIVE Assessment & Plan Assessment/Plan (1) Opiate withdrawal: PLAN: Plan 1. Acute opiate withdrawal/tobacco abuse ? She was using fentanyl daily but was snorting it so we do not need to proceed with a hepatitis C or HIV panel ? Continue with opiate withdrawal protocol ? Evaluation by 180 for discharge planning ? Nicotine patch, discussed cessation 2. Essential HTN ? Will resume her home blood pressure medications ? It is unclear whether or not her blood pressure is elevated due to noncompliance versus withdrawal therefore will not make any adjustments 3. Hypokalemia ? Will replace ? Recheck in the morning DVT: Lovenox Charges/Coding Visit Charges Inpatient E&M: 47103 Init Hosp L2
[2025-01-23] MEDS: 0.9% Normal Saline (1000mL) 1,000 ML 100 ML IV (23:05)
[2025-01-24] VITALS (7 sets, daily range): BP systolic 144–189; BP diastolic 68–100; PULSE 77–106; RESP 15–17; TEMP 36.7–37.1; O2SAT 92–97
[2025-01-24] MEDS: hydrOXYzine PAM 25 MG Capsule 50 MG PO ×2 (06:31→15:18)
[2025-01-24 06:46] LABS: Hematocrit 46.6 % (37-47); Hemoglobin 15.4 g/dL (12.0-15.0); Immature Granulocytes Count 0.080 X10^3/uL (0.0-0.0); Mean Corp Hgb Conc 33.0 g/dL (32-36); Mean Corpuscular Volume 91.4 fL (81-99); Mean Platelet Vol. 10.8 fl (6.2-12.0); NRBC Flagged by Analyzer 0 % (0-5); Platelet Count 381 K/mm3 (150-450); RBC Distribution Width CV 14.6 % (11.6-14.6); RBC Distribution Width SD 49.1 fl (35.1-43.9); Red Blood Count 5.10 M/mm3 (4.2-5.4); White Blood Count 17.6 K/mm3 (4.4-11.0)
[2025-01-24 07:11] LABS: Anion Gap 18 (5-15); BUN 21 mg/dL (4-19); BUN/Creat Ratio 26.0 RATIO (10-20); Calcium,Total 9.1 mg/dL (7.6-11.0); Carbon Dioxide 20.3 mmol/L (21.0-32.0); Chloride 99 mmol/L (98-108); Estimated Creatinine Clearance 64.84 ml/min (50-250); Glucose 117 mg/dL (70-99); Potassium 3.6 mmol/L (3.3-5.1)
[2025-01-24] MEDS: 0.9% Normal Saline (1000mL) 1,000 ML 100 ML IV (09:02)
--- NOTE | 2025-01-24 09:51 | PN.HOSP_ITS ---
Subjective Subjective Cina score 7, blood pressure is little bit better controlled. Objective Data Objective Data Vital Signs: Vital Signs Temp Pulse Resp BP Pulse Ox O2 Del Method 98.7 F 83 15 151/68 H 95 Room Air 01/24/25 09:04 01/24/25 09:04 01/24/25 09:04 01/24/25 09:04 01/24/25 09:04 01/24/25 09:20 Oxygen Delivery Method Room Air Weight: 144 lb 11.2 oz Body Mass Index (BMI) 26.4 Intake & Output: Intake and Output for Last 24 Hours 01/23/25 01/24/25 01/25/25 03:59 03:59 03:59 Intake Total 1850 / 1850 1495 / 1495 Balance 1850 / 1850 1495 / 1495 Lab / Micro Data 01/24/25 06:16 01/24/25 06:16 Labs: Laboratory Results - last 24 hr 01/23/25 10:29: Urine Opiates Screen NEGATIVE, U Buprenorphine Qual NEGATIVE, Ur Oxycodone Screen NEGATIVE, Urine Methadone Screen NEGATIVE, Urine Fentanyl Screen PRESUMPTIVE POSITIVE, Ur Barbiturates Screen NEGATIVE, Ur Phencyclidine Scrn NEGATIVE, Ur Amphetamines Screen NEGATIVE, U Benzodiazepines Scrn NEGATIVE, Urine Cocaine Screen NEGATIVE, U Cannabinoids Screen NEGATIVE 01/24/25 06:16: WBC 17.6 H, RBC 5.10, Hgb 15.4 H, Hct 46.6, MCV 91.4, MCH 30.2, MCHC 33.0, RDW Std Deviation 49.1 H, RDW Coeff of Anatoliy 14.6, Plt Count 381, MPV 10.8, Immature Gran % (Auto) 0.500, Neut % (Auto) 74.5 H, Lymph % (Auto) 16.7 L, [place] % (Auto) 7.5, Eos % (Auto) 0.1, Baso % (Auto) 0.7, Absolute Neuts (auto) 13.1 H, Absolute Lymphs (auto) 2.94, Nucleated RBC % 0, Sodium 137, Potassium 3.6, Chloride 99, Carbon Dioxide 20.3 L, Anion Gap 18 H, BUN 21 H, Creatinine 0.81, Estim Creat Clear Calc 64.84, Est GFR (MDRD) Non-Af 83, BUN/Creatinine Ratio 26.0 H, Glucose 117 H, Calcium 9.1 Physical Exam Narrative General: Alert, Oriented x3, Cooperative, No apparent distress, restless HEENT: Atraumatic, PERRLA, EOMI, Normocephalic Oral: Moist Mucosa Neck: Supple, No JVD Lungs: Clear to auscultation, Normal air movement, No rhonchi, No wheeze, No rales Cardiovascular: Tachycardic, Regular Rhythm, Normal S1, Normal S2, No murmurs Abdomen: Soft, Non Tender, Non-Distended, No Hepato-splenomegaly Extremities: No edema, Capillary Refill Less than 3 Seconds Skin: No rashes, No breakdown Musculoskeletal: No Tenderness to Palpation of Joints or Extremities Neurological: No focal neurological deficits, Motor Exam 5/5 strength throughout, Sensory exam intact to light touch and pain Psych/Mental Status: Anxious Assessment & Plan Assessment/Plan (1) Opiate withdrawal: PLAN: Plan 1. Acute opiate withdrawal/tobacco abuse ? She was using fentanyl daily but was snorting it so we do not need to proceed with a hepatitis C or HIV panel ? Continue with opiate withdrawal protocol ? Evaluation by 180 for discharge planning ? Nicotine patch, discussed cessation 2. Essential HTN ? Blood pressure does remain mildly elevated ? Will transition metoprolol to Coreg 3. Hypokalemia ? Resolved DVT: Lovenox Charges/Coding Visit Charges Inpatient E&M: 89119 Subs Hosp L2
--- NOTE | 2025-01-24 11:15 | ADDICTION ---
Met with patient to complete RAMP assessment and to discuss discharge planning. Pt was very resistant to discussing any changes that need to be made other than quitting use. Pt did not have any interest in any tx recommendations and as soon as clinician entered her room expressed her lack of interest. Peer support will be going in later this afternoon to see about possible follow up treatment.
[2025-01-25 05:35] VITALS: BP 159/76; PULSE 71; RESP 16; TEMP 37.3; O2SAT 93
[2025-01-25 09:04] VITALS: BP 180/83; PULSE 71; RESP 18; TEMP 36.8; O2SAT 97
[2025-01-25] MEDS: hydrOXYzine PAM 25 MG Capsule 50 MG PO (09:22)
--- NOTE | 2025-01-25 09:51 | PCM.PN.HOSP ---
Subjective Subjective Cina score of 1 this morning. She does not want to meet with 180 and we will figure out her postdischarge rehab on her own Objective Data Objective Data Vital Signs: Vital Signs Temp Pulse Resp BP Pulse Ox O2 Del Method 98.3 F 71 18 180/83 H 97 Room Air 01/25/25 09:04 01/25/25 09:04 01/25/25 09:04 01/25/25 09:04 01/25/25 09:04 01/25/25 09:04 Oxygen Delivery Method Room Air Weight: 144 lb 11.2 oz Body Mass Index (BMI) 26.4 Intake & Output: Intake and Output for Last 24 Hours 01/24/25 01/25/25 01/26/25 03:59 03:59 03:59 Intake Total 1850 / 1850 3345 / 3345 400 / 400 Balance 1850 / 1850 3345 / 3345 400 / 400 Lab / Micro Data 01/24/25 06:16 01/24/25 06:16 Physical Exam Narrative General: Alert, Oriented x3, Cooperative, No apparent distress HEENT: Atraumatic, PERRLA, EOMI, Normocephalic Oral: Moist Mucosa Neck: Supple, No JVD Lungs: Clear to auscultation, Normal air movement, No rhonchi, No wheeze, No rales Cardiovascular: Regular rate, Regular Rhythm, Normal S1, Normal S2, No murmurs Abdomen: Soft, Non Tender, Non-Distended, No Hepato-splenomegaly Extremities: No edema, Capillary Refill Less than 3 Seconds Skin: No rashes, No breakdown Musculoskeletal: No Tenderness to Palpation of Joints or Extremities Neurological: No focal neurological deficits, Motor Exam 5/5 strength throughout, Sensory exam intact to light touch and pain Psych/Mental Status: Normal affect Assessment & Plan Assessment/Plan (1) Opiate withdrawal: PLAN: Plan 1. Acute opiate withdrawal/tobacco abuse ? She was using fentanyl daily but was snorting it so we do not need to proceed with a hepatitis C or HIV panel ? Continue with opiate withdrawal protocol ? She refused to be evaluated by [facility] for discharge planning she says that she will figure it out on her own ? Nicotine patch, discussed cessation 2. Essential HTN ? Blood pressure does remain mildly elevated ? Will transition metoprolol to Coreg 3. Hypokalemia ? Resolved DVT: Lovenox Charges/Coding Visit Charges Inpatient E&M: 28027 Subs Hosp L2
--- NOTE | 2025-01-25 13:57 | DCINST_ITS ---
Discharge Instructions DC O2, CPAP, BIPAP needs Home O2 Discharge instructions: No Dressing / Incision Discharge Activity: Return to Normal Activity Dressing / Incision Call your doctor if you observe: Fever of 101 or Higher, Shortness of breath, Dizziness, Fainting spells, Swelling in the ankles, Chest pain and Increased palpitations (irregular heartbeat) Follow Up Care Test Results: Test results from this visit will be discussed in further detail at your follow- up appointment, if applicable. Discharge Plan Admission Admit Date/Time: 01/23/25 09:09 Attending Provider: Aubrey Agarwal Primary Care Provider: Care Physician,Poppy Primary Discharge Orders/Prescriptions Prescriptions: New carvedilol 6.25 mg Tablet 6.25 mg PO BIDCM 30 Days Qty: 60 3RF Continued amlodipine 10 mg Tablet 10 mg PO DAILY Qty: 30 3RF Discontinued metoprolol tartrate 25 mg Tablet 25 mg PO BID Qty: 60 0RF Referrals / Follow Up: Care Physician,No Primary [Primary Care Provider] - Disposition Disposition (needs filled in before D/C Order can be placed): Home, Self Care
[2025-01-25 14:40] VITALS: BP 156/84; PULSE 88; RESP 18; TEMP 37.2; O2SAT 97
--- NOTE | 2025-01-25 15:41 | PCM.DC.SUM ---
Providers Date of Admission: 01/23/25 Primary Care Physician: No Primary Care Phys Reason For Visit: DETOX Diagnosis Discharge Diagnosis (1) Opiate withdrawal: Status: Acute Code(s): F11.93 - Opioid use, unspecified with withdrawal Medications at Discharge Home Medications amlodipine 10 mg tablet 10 mg PO DAILY bp #30 tabs 01/25/25 carvedilol 6.25 mg tablet 6.25 mg PO BIDCM 30 days #60 tabs 01/25/25 Hospital Course Operations None Procedures None Summary of Care Provided Minutes Spent on Discharge: 33 Hospital Course: Per HPI: EMILY DELACRUZ, is a 60 F who presents to the hospital requesting detox from opiates. She snorts fentanyl but her last use was 3 to 4 days ago, she had been checked for HIV and hepatitis C a couple years ago and has not used IV drugs since that time.. In the ER she was found to have a leukocytosis but is afebrile with no signs of infection and it does appear to be chronically elevated over the last couple years I do recommend outpatient follow-up. Hemoglobin is also elevated to 16.2 potential indicating some dehydration. She is currently going through active withdrawal and her blood pressures are elevated as is her heart rate but she is fairly restless and anxious on admission. The rest of her lab work is fairly benign but will monitor again tomorrow. Hospital Course: 1. Acute opiate withdrawal/tobacco abuse?60-year-old female presented to the hospital requesting detox from snorting fentanyl. She used to use IV drugs but was negative for hepatitis C and HIV after she switched to snorting fentanyl so this were not rechecked. She was started on the buprenorphine taper immediately on admission. Cina scores today on the day of discharge were 1-3 I discussed with her the possibility for discharge. She did not want take part with 180 which is part of the requirement of the ramp program while here in the hospital and given the improvement in her Cina scores she expressed understanding of the risks and benefits of going home and would like to go home today. She refused any help for placement to outpatient rehab says that she can do it on her own. 2. Essential hypertension?blood pressures remain somewhat elevated during her admission she was changed from metoprolol to Coreg 6.25 mg p.o. twice daily. She does not have a PCP therefore I discharged her on Coreg and amlodipine with 3 refills and recommended that she follow-up with her PCP as an outpatient. Weight / BMI Weight Weight: 144 lb 11.2 oz Body Mass Index (BMI) 26.4 ABG / Lab / Microbiology Data 01/24/25 06:16 01/24/25 06:16 D/C Instructions Call your doctor if you observe: Fever of 101 or Higher, Shortness of breath, Dizziness, Fainting spells, Swelling in the ankles, Chest pain and Increased palpitations (irregular heartbeat) DC O2, CPAP, BIPAP Needs Home O2 Discharge instructions: No Meaningful Use Info Meaningful Use Meaningful Use Diagnoses (Choose all that apply): None applicable Discharge Plan Admission Admit Date/Time: 01/23/25 09:09 Attending Provider: Aubrey Agarwal Primary Care Provider: Care Physician,Poppy Primary Discharge Orders/Prescriptions Prescriptions: New carvedilol 6.25 mg Tablet 6.25 mg PO BIDCM 30 Days Qty: 60 3RF Continued amlodipine 10 mg Tablet 10 mg PO DAILY Qty: 30 3RF Discontinued metoprolol tartrate 25 mg Tablet 25 mg PO BID Qty: 60 0RF Referrals / Follow Up: Care Physician,No Primary [Primary Care Provider] - Disposition Disposition (needs filled in before D/C Order can be placed): Home, Self Care Charges/Coding Visit Charges Inpatient E&M: 19326 Disch Hosp >30min
== END 2025-01-25 14:49 | disposition home or self-care (01) | DRG 897 ==
LOC: ED 09:20 → MS3 13:53
PROVIDERS: Admitting Provider Family Medicine; Emergency Provider Emergency Medicine; Visit Provider Family Medicine
DX: F11.93 Opioid use, unspecified with withdrawal (principal); E86.0 Dehydration; I10 Essential (primary) hypertension; E87.6 Hypokalemia; F17.210 Nicotine dependence, cigarettes, uncomplicated; M79.7 Fibromyalgia; Z90.710 Acquired absence of both cervix and uterus
CPT/HCPCS: 36415; 80048; 80053; 80307; 82077; 85025; 99284; 99406; A4216; J2405